=== PATIENT | male | born 1965 | race Caucasian/White ===

== ENCOUNTER 2016-07-29 09:45 | Emergency (ER) | payer OTHER ==
[~2016-07-29] VITALS: Ht 175.3 cm; Wt 68.0 kg
[~2016-07-29 09:45] MED LIST: FISH1000 PO; MILKPOW PO; TAB-TAB PO; VICO7.5T PO; VITA400C70 PO
[2016-07-29 09:49] VITALS: BP 139/78; PULSE 83; RESP 20; TEMP 98.2; O2SAT 94
[2016-07-29] MEDS ORDERED: KETOROLAC TROMETHAMINE 60 MG/2 ML (IM) VIAL IM ONE ×2 (10:30→16:15)
--- NOTE | 2016-07-29 10:30 | PD ---
HPI Chief Complaint: Musculoskeletal Complaint Time Seen by Provider: 09:58 Travel History International Travel<30 days: No Contact w/Intl Traveler<30days: No Traveled to known affect area: No History of Present Illness HPI 50yo M presents to the ED from the [facility] for multiple complaints. Pt states he has numbness in the right side of his body for 2 months. He states he is unable to walk and lift his right leg. Also with sharp pain in his left arm. Pt had impingement syndrome and rotator cuff repair 04/2008. Pt had xray LS from [place] today that showed persistent, mild degenerative changes. Pt has gone through physical therapy, gabapentin and states nothing works. States he has not had MRI of his spine. States his legs were so weak that he fell from the chair yesterday. Denies any chest pain, sob, n/v, abdominal pain or urinary complaints. Pt is on 50% disability. PFSH Past Medical History Cancer: No Diabetes: No Glaucoma: No Hepatitis: No Hiatal Hernia: No Hypertension: No Thyroid Disease: No Past Surgical History Pacemaker: No Other Surgery: Yes Social History Alcohol Use: Yes (SOCIAL) Tobacco Use: Yes (1 PK DAILY) Allergies-Medications (Allergen,Severity, Reaction): Coded Allergies: No Known Allergies (Verified , 05/05/08) Reported Meds & Prescriptions Reported Meds & Active Scripts Active Elavil (Amitriptyline HCl) 25 Mg Tab 1 Tab PO HS Review of Systems Except as stated in HPI: all other systems reviewed are Neg Physical Exam Narrative GENERAL: 50yo hyperventilating. SKIN: Focused skin assessment warm/dry. HEAD: Atraumatic. Normocephalic. EYES: Pupils equal and round. EOMI. No scleral icterus. No injection or drainage. ENT: No midline ttp cervical spine. NECK: Trachea midline. No JVD. CARDIOVASCULAR: Regular rate and rhythm. No murmur appreciated. RESPIRATORY: No accessory muscle use. Clear to auscultation. Breath sounds equal bilaterally. GASTROINTESTINAL: Abdomen soft, non-tender, nondistended. MUSCULOSKELETAL: No obvious deformities. No clubbing. No cyanosis. No edema. BACK: No mass, step off or erythema in midline thoracic or lumbar spine. NEUROLOGICAL: Awake and alert. Decreased left facility planner compare to right. Decreased sensation right arm and leg. Muscle strength right lower ext 3/5. 5/5 muscle strength in all other extremities. Data Data Last Documented VS Vital Signs Date Time Temp Pulse Resp B/P Pulse Ox O2 Delivery O2 Flow Rate FiO2 07/29/16 15:43 60 18 154/78 98 07/29/16 09:49 98.2 Orders Mri Brain W/O Contrast (07/29/16 ) Mri C Spine W/O Contrast (07/29/16 ) Mri L Spine W/O Contrast (07/29/16 ) Ketorolac Inj (Toradol Inj) (07/29/16 10:30) Mri T Spine W/O Contrast (07/29/16 ) Screening,Pre Mr[facility] (07/29/16 ) Ketorolac Inj (Toradol Inj) (07/29/16 16:15) Complete Blood Count With Diff (07/29/16 16:12) Basic Metabolic Panel (Bmp) (07/29/16 16:12) Prothrombin Time / Inr (Pt) (07/29/16 16:12) Act Partial Throm Time (Ptt) (07/29/16 16:12) Type And Screen (07/29/16 16:12) Admit Order (Ed Use Only) (07/29/16 16:15) MDM Medical Decision Making Medical Screen Exam Complete: Yes Emergency Medical Condition: Yes Interpretation(s) Last Impressions Thoracic Spine MRI 07/29/16 0000 Signed Impressions: Service Date/Time: Friday, July 29, 2016 13:53 - CONCLUSION: Tiny disc protrusions at several levels, none producing any significant anatomic compromise. Helio Benoit MD [facility] X-Ray 07/29/16 0000 Signed Impressions: Service Date/Time: Friday, July 29, 2016 13:35 - CONCLUSION: No MRI incompatible foreign body is identified. Jonathon Ibarra MD Lumbar Spine MRI 07/29/16 0000 Signed Impressions: Service Date/Time: Friday, July 29, 2016 13:53 - CONCLUSION: Broad disc protrusions at the L2-3 and L3-4 levels as above Helio Benoit MD Cervical Spine MRI 07/29/16 0000 Signed Impressions: Service Date/Time: Friday, July 29, 2016 13:53 - CONCLUSION: 1. There is a very large disc protrusion at C6-7 with extruded disc material resulting in severe spinal stenosis and bilateral foraminal stenosis. There are edematous changes within the cord at this level. 2. Large central disc protrusion at C4- 5 resulting in severe spinal stenosis at this level. 3. Mild spinal stenosis at C5-6. 4. The individual levels are dictated in detail above. Vasiliy Gamboa MD Brain MRI 07/29/16 0000 Signed Impressions: Service Date/Time: Friday, July 29, 2016 13:53 - CONCLUSION: Normal examination. Helio Benoit MD Differential Diagnosis spinal stenosis vs. nerve compression vs. CVA Narrative Course 50yo M with multiple neuro symptoms. Brain MRI negative. MRI cspine showed very large disc protrusion at C6-7 with extruded disc material resulting in severe spinal stenosis and bilateral foraminal stenosis. There are edematous changes within the cord at this level. Large central disc protrusion at C4-C% resulting in severe spinal stenosis at this level. Mild spinal stenosis at C5- 6. Pt has been having left arm pain, numbness and weakness for a long time. States it is worst with his head turning to the left. Decreased facility planner on left compare to right. MRI LS spine broad disc protrusions at L2-L3 and L3-L4. MRI TS showed tiny disc protrusions at several levels, none producing any significant anatomic compromise. Pt reevaluated at bedside and states that the toradol helped with the pain a lot but is now returning. It has been 6 hours since the first toradol 30mg IV so another dose of toradol 30mg IV given. Discussed findings with Dr. Valderrama and admitted to his service. Pt was seen and evaluated by Dr. Valderrama in the ED. While still physically in the ED, pt refused to stay. Pt states he needs time to process this. Dr. Valderrama and I both tried to convince pt to stay but pt states he needs to go home to take care of things. Dr. Valderrama requesting CT cspine and ordered c-collar. Pt was placed in a cervical spine collar and CT cspine was completed prior to leaving. AMA: The risks of leaving against medical advice without further evaluation treatment were discussed with the patient. These risks include cardiac dysfunction, cardiac dysrhythmia, possible heart attack, possible stroke or . The patient indicated understanding of these risks and appeared to have the capacity to make this decision. Diagnosis Primary Impression: Contusion of cervical cord Qualified Code: S14.109A - Contusion of cervical cord, initial encounter Referrals: Luis Alberto Valderrama MD 1 day Patient Instructions: General Instructions Departure Forms: Tests/Procedures Additional Instructions: Please follow up with Dr. Valderrama as outpatient or return to the ED if you change your mind. Scripts Amitriptyline HCl (Elavil)25 Mg Tab1 Tab PO HS #30 TAB Ref 1 Prov:Luis Alberto Valderrama MD 07/29/16 Disposition: 07 AGAINST MEDICAL ADVICE Condition: Stable WilsonYamilka oropezabran LOPEZ Jul 29, 2016 10:30
[2016-07-29 11:40] VITALS: BP 139/77; PULSE 67; RESP 18; O2SAT 98
[2016-07-29] MEDS ORDERED: ATRITAB PO (13:36)
--- NOTE | 2016-07-29 13:53 | RADRPT ---
EXAM DATE/TIME: 07/29/2016 13:35 [facility] COMPARISON: No previous studies available for comparison. INDICATIONS : Clear for mri, lost mobility in his legs last night, numbness on his left side MEDICAL HISTORY : None. SURGICAL HISTORY : None. ENCOUNTER: Initial ACUITY: 1 day PAIN SCORE: 0/10 LOCATION: Bilateral orbits FINDINGS: Multiple views of both orbits were performed. There is no evidence of fracture involving the bony st ructures surrounding the orbits. The maxillary sinuses appear to be well aerated. No radiopaque bod ies are seen in the soft tissues. No MRI incompatible foreign body is identified. CONCLUSION: No MRI incompatible foreign body is identified. Jonathon Ibarra MD on July 29, 2016 at 13:52 Board Certified Radiologist. This report was verified electronically.
[2016-07-29 14:12] VITALS: BP 138/78; PULSE 71; RESP 18; O2SAT 97
--- NOTE | 2016-07-29 14:37 | RADRPT ---
EXAM DATE/TIME: 07/29/2016 13:53 [facility] COMPARISON: No previous studies available for comparison. INDICATIONS : Risght sided weakness times 2 months. MEDICAL HISTORY : None available SURGICAL HISTORY : Bilat shoulders/Left knee. ENCOUNTER: Initial ACUITY: 2 months PAIN SCORE: 0/10 LOCATION: neck TECHNIQUE: Multiplanar, multisequence MRI examination of the cervical spine was performed. FINDINGS: Sagittal T1 and T2-weighted images demonstrate degenerated disc with osteophytic ridging and large di sc protrusions at C4/5, C5/6 and C6/7. There is extruded disc material abutting the ventral thecal sa c at the C6/7 level. There is increased T2 signal within the cord at this level. The cerebellar tonsils are in their appropriate location. C2-C3: The thecal sac has a normal configuration. There is no evidence of disc herniation or spinal canal s tenosis. The neural foramina are patent bilaterally. C3-C4: There is minimal disc bulge. This just abuts the ventral aspect of the cord. The foramina are adequat e. C4-C5: There is a large central disc protrusion which effaces the ventral thecal sac. There is flattening of the ventral aspect of the cord. There is fairly severe spinal stenosis at this level. The foramina a re adequate. C5-C6: There is broad-based disc bulge and diffuse osteophytic ridging which effaces the ventral thecal sac. This abuts the ventral aspect of the cord. There is mild flattening of the ventral aspect of the cor d. There is moderate foraminal narrowing bilaterally. C6-C7: There is a very large disc protrusion and osteophytic spur. This effaces the ventral thecal sac. Ther e is flattening of the ventral aspect of the cord. There are edematous changes within the cord. There is disc material evident effacing the lateral recess and foramina bilaterally. Overall, there is a s evere spinal stenosis at this level. C7-T1: There is minimal disc bulge asymmetric towards the left. This effaces the ventral thecal sac. The res idual thecal space and foramina are adequate. CONCLUSION: 1. There is a very large disc protrusion at C6-7 with extruded disc material resulting in severe spin al stenosis and bilateral foraminal stenosis. There are edematous changes within the cord at this lev el. 2. Large central disc protrusion at C4-5 resulting in severe spinal stenosis at this level. 3. Mild spinal stenosis at C5-6. 4. The individual levels are dictated in detail above. Vasiliy Gamboa MD on July 29, 2016 at 14:32 Board Certified Radiologist. This report was verified electronically.
--- NOTE | 2016-07-29 14:54 | RADRPT ---
EXAM DATE/TIME: 07/29/2016 13:53 [facility] COMPARISON: MRI CERVICAL SPINE W/O CONTRAST, July 29, 2016, 13:53. INDICATIONS : Extremity weakness. Right sided weakness times 2 month. MEDICAL HISTORY : None. SURGICAL HISTORY : Bilat shoulders/Left knee ENCOUNTER: Initial ACUITY: 2 months PAIN SCORE: 0/10 LOCATION: T-spine TECHNIQUE: Multiplanar multisequence MRI of the thoracic spine was performed. FINDINGS: VERTEBRA: Normal vertebral body height. Homogeneous marrow signal. ALIGNMENT: Normal. CORD: Normal position and configuration. T1-T2: Normal. T2-T3: The thecal sac has a normal diameter. No evidence of disc bulge or protrusion. T3-T4: Minimal broad right paracentral disc protrusion minimally indenting thecal sac and the right lateral recess. No significant canal or foraminal compromise T4-T5: The thecal sac has a normal diameter. No evidence of disc bulge or protrusion. T5-T6: The thecal sac has a normal diameter. No evidence of disc bulge or protrusion. T6-T7: The thecal sac has a normal diameter. No evidence of disc bulge or protrusion. T7-T8: Slight broad left paracentral disc protrusion mildly effacing thecal sac and the left lateral recess. Canal and foramina satisfactory. T8-T9: Slight left paracentral disc protrusion minimally indenting thecal sac in the lateral recess. No sign ificant canal or foraminal compromise T9-T10: The thecal sac has a normal diameter. No evidence of disc bulge or protrusion. T10-T11: The thecal sac has a normal diameter. No evidence of disc bulge or protrusion. T11-T12: The thecal sac has a normal diameter. No evidence of disc bulge or protrusion. T12-L1: The thecal sac has a normal diameter. No evidence of disc bulge or protrusion. CONCLUSION: Tiny disc protrusions at several levels, none producing any significant anatomic compromise. Helio Benoit MD on July 29, 2016 at 14:47 Board Certified Radiologist. This report was verified electronically.
--- NOTE | 2016-07-29 15:12 | RADRPT ---
EXAM DATE/TIME: 07/29/2016 13:53 [facility] COMPARISON: No previous studies available for comparison. INDICATIONS : Difficulty ambulating. Rt side paralysis. MEDICAL HISTORY : None. SURGICAL HISTORY : Bilat shoulders/Left knee ENCOUNTER: Initial ACUITY: 2 day PAIN SCORE: 0/10 LOCATION: head TECHNIQUE: Multiplanar, multisequence MRI of the brain was performed without contrast. FINDINGS: CEREBRUM: The ventricles are normal for age. No evidence of midline shift, mass lesion, hemorrhage or acute in farction. No extraaxial fluid collections are seen. The pituitary gland and suprasellar cistern are normal in configuration. WHITE MATTER: No significant signal abnormalities are seen in the white matter. POSTERIOR FOSSA: The cerebellum and brainstem are intact. The 4th ventricle is midline. The cerebellopontine angle is unremarkable. The cerebellar tonsils are normal in position. DIFFUSION IMAGING: No focal areas of restricted diffusion are seen. No evidence of acute infarction. EXTRACRANIAL: The visualized portions of the orbits and paranasal sinuses are unremarkable. CONCLUSION: Normal examination. Helio Benoit MD on July 29, 2016 at 15:07 Board Certified Radiologist. This report was verified electronically.
--- NOTE | 2016-07-29 15:24 | RADRPT ---
EXAM DATE/TIME: 07/29/2016 13:53 [facility] COMPARISON: No previous studies available for comparison. INDICATIONS : Right sided paralysis. MEDICAL HISTORY : None. SURGICAL HISTORY : Bilat shoulders. ENCOUNTER: Initial ACUITY: 2 months PAIN SCORE: 0/10 LOCATION: back TECHNIQUE: Multiplanar multisequence MRI of the lumbar spine was performed without contrast. FINDINGS: The most caudal appearing lumbar vertebra is numbered as L5. VERTEBRAE: Homogeneous signal. Normal alignment. CONUS: Normal level and configuration. T12-L1: The thecal sac has a normal diameter. No evidence of disc bulge or protrusion. The neural foramina are patent bilaterally. L1-L2: The thecal sac has a normal diameter. No evidence of disc bulge or protrusion. The neural foramina are patent bilaterally. L2-L3: Annular disc bulge with broad undulating superimposed dorsal disc protrusion mildly indenting the the luis a sac. Foramina appear adequate. L3-L4: Annular disc bulge with moderate superimposed undulating dorsal disc protrusion, minimally eccentric to the left with mild flattening of the thecal sac. Foramina appear adequate. L4-L5: Slight disc dehydration with minimal annular bulge. No significant protrusion, canal or foraminal silvio nosis. L5-S1: The thecal sac has a normal diameter. No evidence of disc bulge or protrusion. The neural foramina are patent bilaterally. CONCLUSION: Broad disc protrusions at the L2-3 and L3-4 levels as above Helio Benoit MD on July 29, 2016 at 15:17 Board Certified Radiologist. This report was verified electronically.
[2016-07-29 15:43] VITALS: BP 154/78; PULSE 60; RESP 18; O2SAT 98
[2016-07-29] MEDS ORDERED: KETOROLAC TROMETHAMINE 30 MG/ML (IVP) VIAL IV PUSH ONE (16:30)
[2016-07-29 16:53] LABS: BASOPHIL # 0.1 TH/MM3 (0-0.2); BASOPHIL % 0.5 % (0.0-2.0); EOSINOPHIL # 0.4 TH/MM3 (0-0.4); EOSINOPHIL % 3.8 % (0.0-4.0); HEMATOCRIT 47.5 % (39.0-51.0); HEMO FLAGS DIFF FINAL; LYMPH % 18.3 % (9.0-44.0); LYMPHOCYTE # 2.1 TH/MM3 (1.0-4.8); MEAN CELL VOLUME 92.6 FL (80.0-100.0); MEAN CORPUSCULAR HEMOGLOBIN 32.1 PG (27.0-34.0); MEAN CORPUSCULAR HGB CONC 34.6 % (32.0-36.0); MONO % 7.4 % (0.0-8.0); PLATELET COUNT 259 TH/MM3 (150-450); RED BLOOD COUNT 5.13 MIL/MM3 (4.50-5.90); RED CELL DISTRIBUTION WIDTH 13.9 % (11.6-17.2); WHITE BLOOD COUNT 11.5 TH/MM3 (4.0-11.0)
[2016-07-29 17:10] LABS: BICARBONATE 28.2 MEQ/L (21.0-32.0); POTASSIUM 3.9 MEQ/L (3.5-5.1)
[2016-07-29 17:13] LABS: APTT (PATIENT) 26.4 SEC (24.3-30.1)
[2016-07-29] MEDS ORDERED: AMIT1TAB79 PO (17:31)
--- NOTE | 2016-07-29 17:57 | PD.CONS ---
History of Present Illness Service Neurosurgery Consult Requested By Emergency room-Dr. Wilson Reason for Consult Cervical myelopathy [facility]: History of Present Illness 50-year-old male presents to the emergency room today after being seen in the [facility] earlier today. The patient gives a history of numbness and spasm in the left arm and hand with intermittent burning sensation particularly when he turns his head to the left side, for approximately 2 years. This pain is particularly severe at night. In the past 2 months he has noted onset of progressive severe numbness and burning sensation in the right lower chest and the right abdomen radiating to the entire right lower extremity. Also in the past couple of months progressive gait difficulty with intermittent spasms in both legs. He also has had spasm in the right hand for approximately a year and significant diminished coordination in both upper extremities for the past year with tasks such as handwriting and using eating utensils. He states that last night he fell and initially could not walk at all. He had to drag himself across the floor. His gait has gradually improved somewhat since that time, back to but has essentially been his baseline for the past few weeks. He denies any bowel or bladder dysfunction. He states that he was put on gabapentin for the upper extremity pain and paresthesias approximately year and a half ago, but was unable to take the medication for more than a few days because of its side effects in regards to mental status and difficulty with his thinking and concentration. He also has trouble with most narcotics including codeine. He has been taking Aleve daily for the past few months. He was given a prescription for prednisone at the [place] recently but apparently has not taken the medication. Review of Systems Constitutional: COMPLAINS OF: Weight loss, DENIES: Fever, Chills Endocrine: DENIES: Heat/cold intolerance Eyes: COMPLAINS OF: Blurred vision, DENIES: Diplopia Ears, nose, mouth, throat: DENIES: Tinnitus, Hearing loss Respiratory: COMPLAINS OF: Cough, DENIES: Wheezing, Shortness of breath Cardiovascular: DENIES: Chest pain, Palpitations Gastrointestinal: COMPLAINS OF: Abdominal pain, DENIES: Diarrhea, Nausea, Vomiting Musculoskeletal: COMPLAINS OF: Joint pain, Muscle aches, Stiffness, Back pain, Neck pain Hematologic/lymphatic: DENIES: Bruising Neurologic: COMPLAINS OF: Abnormal gait, Headache, Localized weakness, Paresthesias, Tremor, Poor Balance Psychiatric: COMPLAINS OF: Anxiety Past Family Social History Allergies: Coded Allergies: No Known Allergies (Verified , 05/05/08) Past Medical History Denies significant cardiac, pulmonary, gastrointestinal disease, diabetes, hypertension, hypercholesterolemia. Positive arthritis Past Surgical History Left shoulder surgery 2008, right shoulder surgery 2004. Left knee surgery Reported Medications Prescription medications as noted above. Family History Positive COPD in his mother. Otherwise negative for cancer, diabetes, cardiac disease, neurologic disorders Social History Smokes 1-1/2 pack cigarettes a day for many years Occasional alcohol, primarily at night to help him sleep Physical Exam Vital Signs Vital Signs Date Time Temp Pulse Resp B/P Pulse Ox O2 Delivery O2 Flow Rate FiO2 07/29/16 15:43 60 18 154/78 98 07/29/16 14:12 71 18 138/78 97 07/29/16 11:40 67 18 139/77 98 07/29/16 09:54 84 07/29/16 09:49 98.2 83 20 139/78 94 Physical Exam GENERAL: This is a well-nourished, well-developed patient, appears uncomfortable and somewhat anxious in the emergency room SKIN: No rashes, ecchymoses or lesions. HEAD: Normocephalic. No lacerations or contusions EYES: Sclerae are clear and nonicteric. No periorbital edema or ecchymosis ENT: Oropharynx clear. No facial fracture or deformity NECK: Moderate diffuse tenderness in the cervical paraspinous musculature CARDIOVASCULAR: Regular rate and rhythm without murmurs, gallops, or rubs. RESPIRATORY: Clear to auscultation. Breath sounds equal bilaterally. No wheezes , rales, or rhonchi. GASTROINTESTINAL: Abdomen soft, non-tender, nondistended. No guarding. Normal bowel sounds MUSCULOSKELETAL: Extremities without cyanosis, or edema. Posterior tibial pulse 2+ bilateral. . No calf tenderness. Positive discomfort left knee with range of motion. NEUROLOGICAL: Awake and alert. Oriented conversant and appropriate Speech is clear Answers questions appropriately and follows simple commands well Recent and remote memory appear reasonably intact Appears to have reasonable judgment and insight Appears moderately anxious during the examination. Extraocular movements intact Poor near vision Facial motor movements symmetric Sensation moderately diminished left greater than right hand greater than forearm to light touch was complaining of paresthesias and left greater than right hand dysesthesia. Moderate paresthesia and dysesthesia to light touch over the right lower chest, right abdomen, entire right lower extremity. Strength is diminished to 4/5 bilateral hand intrinsics, abductor digiti quinti minimi, abductor pollicis longus and brevis. 5/5 bilateral deltoids and biceps and triceps. Mild weakness bilateral iliopsoas. Otherwise normal strength throughout the lower extremities Alvarez's response mild positive on the right, absent left Few beats left and right ankle clonus Plantar response moderate right, markedly left with positive significant bilateral quadriceps contraction with testing Fine motor movements moderately impaired in both hands. Laboratory Laboratory Tests Test 07/29/16 16:30 White Blood Count 11.5 Red Blood Count 5.13 Hemoglobin 16.4 Hematocrit 47.5 Mean Corpuscular Volume 92.6 Mean Corpuscular Hemoglobin 32.1 Mean Corpuscular Hemoglobin 34.6 Concent Red Cell Distribution Width 13.9 Platelet Count 259 Mean Platelet Volume 8.4 Neutrophils (%) (Auto) 70.0 Lymphocytes (%) (Auto) 18.3 Monocytes (%) (Auto) 7.4 Eosinophils (%) (Auto) 3.8 Basophils (%) (Auto) 0.5 Neutrophils # (Auto) 8.0 Lymphocytes # (Auto) 2.1 Monocytes # (Auto) 0.8 Eosinophils # (Auto) 0.4 Basophils # (Auto) 0.1 CBC Comment DIFF FINAL Differential Comment Prothrombin Time 11.0 Prothromb Time International 1.0 Ratio Activated Partial 26.4 Thromboplast Time Sodium Level 141 Potassium Level 3.9 Chloride Level 104 Carbon Dioxide Level 28.2 Anion Gap 9 Blood Urea Nitrogen 12 Creatinine 0.97 Estimat Glomerular Filtration 82 Rate Random Glucose 85 Calcium Level 9.2 Blood Type A POSITIVE Blood Bank Comment Result Diagram: 07/29/16 1630 07/29/16 1630 Imaging 07/29/16 MRI cervical, thoracic, lumbar spine images are reviewed by the undersigned. There is severe canal stenosis at the C6 7 greater than C4 5 level with moderate stenosis C5 6. Positive significant increased signal intensity within the cord at C6 7 with probable extruded disc herniation which appears chronic and may be partially calcified. Thoracic Spine MRI 07/29/16 0000 Signed Impressions: Service Date/Time: Friday, July 29, 2016 13:53 - CONCLUSION: Tiny disc protrusions at several levels, none producing any significant anatomic compromise. Helio Benoit MD Orbit X-Ray 07/29/16 Signed Impressions: Service Date/Time: Friday, July 29, 2016 13:35 - CONCLUSION: No MRI incompatible foreign body is identified. Jonathon Ibarra MD Lumbar Spine MRI 07/29/16 Signed Impressions: Service Date/Time: Friday, July 29, 2016 13:53 - CONCLUSION: Broad disc protrusions at the L2-3 and L3-4 levels as above Helio Benoit MD Cervical Spine MRI 07/29/16 0000 Signed Impressions: Service Date/Time: Friday, July 29, 2016 13:53 - CONCLUSION: 1. There is a very large disc protrusion at C6-7 with extruded disc material resulting in severe spinal stenosis and bilateral foraminal stenosis. There are edematous changes within the cord at this level. 2. Large central disc protrusion at C4- 5 resulting in severe spinal stenosis at this level. 3. Mild spinal stenosis at C5-6. 4. The individual levels are dictated in detail above. Vasiliy Gamboa MD Brain MRI 07/29/16 Signed Impressions: Service Date/Time: Friday, July 29, 2016 13:53 - CONCLUSION: Normal examination. Helio Benoit MD Assessment and Plan Assessment and Plan Impression: 1. Cervical spondylosis and degenerative disc disease 2. Severe cervical stenosis 3. 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 Cervical myelopathy 5. Possible cervical cord contusion 6. Nicotine abuse 7. Probable anxiety disorder Plan: The MRI images were reviewed at length with the patient and his family in the emergency room. Treatment options including observation versus surgical intervention have been fully discussed. Advised him that due to the possibility of significant scar tissue formation within the spinal cord, there is no guarantee of any improvement with surgical intervention. However it is very likely that he will continue to become worse without surgical decompression. Due to the severity of his presentation and recent fall, it is recommended that he be admitted at this time for cervical spine surgery for cord decompression. The surgical procedures been explained. Risk and possible complications have been discussed including the risk of anesthesia, organ failure, stroke, , bleeding, infection, nerve damage, pain, weakness, numbness, paralysis, loss of bowel, bladder or sexual function, spinal fluid leak, failure of instrumentation or fusion. Consents have been reviewed with the patient, signed and witnessed in the office today. All questions have been answered. He appears understand all of the above. I have cautioned him that any further falls could cause severe spinal cord injury and possible paralysis. The patient is very adamant that he be discharged home from the emergency room. He states that he is unable to proceed with surgery at this time, saying that he needs some time to think this over and "I can't wrap my head around this". Signs and symptoms to watch for have been fully discussed. He is in agreement with wearing a cervical collar which will be provided to him. I recommended that he obtain a CT scan of the cervical spine to better determine the degree of calcification of the disc displacements and bony anatomy prior to discharge in preparation for anticipated surgery. He states that he cannot get any sleep at night. He cannot take gabapentin. He cannot take narcotic pain medication. I gave him a prescription for amitriptyline 25 mg daily at bedtime on a trial basis to see if he can tolerate this medication. Potential side effects of been discussed. We will continue to follow him on an outpatient basis and try to arrange for surgical decompression of the spinal cord as soon as he is in agreement with this. Luis Alberto Valderrama MD Jul 29, 2016 17:57
--- NOTE | 2016-07-29 18:36 | RADRPT ---
EXAM DATE/TIME: 07/29/2016 17:59 [facility] COMPARISON: MRI CERVICAL SPINE W/O CONTRAST, July 29, 2016, 13:53. INDICATIONS : Right sided numbness for two months. RADIATION DOSE: 30.82 CTDIvol (mGy) MEDICAL HISTORY : None SURGICAL HISTORY : Right rotator cuff repair. ENCOUNTER: Initial ACUITY: 2 months PAIN SCALE: 8/10 LOCATION: Right neck TECHNIQUE: Volumetric scanning of the cervical spine was performed. Multiplanar reconstructions in the sagittal, coronal and oblique axial planes were performed. Using automated exposure control and adjustment o f the mA and/or kV according to patient size, radiation dose was kept as low as reasonably achievable to obtain optimal diagnostic quality images. FINDINGS: Cervical MRI performed earlier the same date had demonstrated large disc protrusion at C6-7 and C4-5. On the CT scan, there is mild reversal of the cervical lordosis from C2-C4. Vertebral body height is maintained. No evidence of spondylolisthesis. Partially bridging anterior ossification is presen t at C4-5, C5-6, and C6-7. Scattered posterior ossification is seen at C4-5 and at C6. The posterio r elements are in normal alignment without evidence of locked or perched facets. The spinous process es are intact. C2-C3: The bony spinal canal is normal in size. No evidence of disc bulge or herniation. The neural forami na are bilaterally patent. C3-C4: The bony spinal canal is normal in size. No evidence of disc bulge or herniation. The neural forami na are bilaterally patent. C4-C5: There is a prominent central epidural impression which measures 6 mm in AP dimension and is centered at the posterior central disc space. There are calcifications seen at the periphery of this presumed disc protrusion. There is uncovertebral joint hypertrophy causing mild minimal foraminal stenosis b ilaterally. C5-C6: Central bulging of the disc does cause indentation on the ventral thecal sac. There is scattered are as of calcification characteristic of associated osteophytes. There is mild bilateral bony neural fo raminal stenosis. C6-C7: Large central disc protrusion with some minimal linear areas of calcification along the inferior righ t margin. The protrusion measures up to 7 mm in AP dimension. The bony neural foramina are patent b ilaterally. C7-T1: The bony spinal canal is normal in size. No evidence of disc bulge or herniation. The neural forami na are bilaterally patent. CONCLUSION: Disc protrusions at C4-5 and C6-7 similar to MR. There are some peripheral calcifications about the protrusions. The level is significant bony neural foraminal stenosis is at C4-5. There is reversal of the cervical or doses at the C4-5 level suggesting that this is chronic, because there is no devia tion or deformity of the large anterior paravertebral ossification. Ollie Jon MD on July 29, 2016 at 18:27 Board Certified Radiologist. This report was verified electronically.
[2016-07-29 19:41] VITALS: BP 160/92; PULSE 78; RESP 16; O2SAT 97
[2016-07-31] MEDS ORDERED: CYCL1TAB29 PO (16:38)
[2016-07-31] MEDS ORDERED: PRED10 PO (16:38)
[2016-07-31] MEDS ORDERED: VARE1PAK3 PO (17:37)
== END 2016-07-29 19:35 | disposition left against medical advice (07) ==
LOC: NEPC 09:45 → NEDA 16:17 → UNDOADMIN 16:17 → UNDODISIN 19:35 → NEDA 19:35
DX: M48.02 Spinal stenosis, cervical region (principal); M79.602 Pain in left arm; R20.0 Anesthesia of skin
CPT/HCPCS: 70551; 72125; 72141; 72146; 72148; 80048; 85025; 85610; 85730; 86850; 86900; 86901; 96372; 99285; J1885; L0150; L0172

== ENCOUNTER 2016-08-02 06:29 | Inpatient (IN) | payer OTHER ==
[~2016-08-02] VITALS: Ht 175.3 cm; Wt 70.3 kg
[~2016-08-02 06:29] MED LIST changes: +AMIT1TAB79 PO; +CYCL1TAB29 PO; -FISH1000 PO; -MILKPOW PO; +PRED10 PO; -TAB-TAB PO; +VARE1PAK3 PO; -VICO7.5T PO; -VITA400C70 PO
[2016-08-02 06:31] VITALS: BP 139/79; PULSE 83; RESP 15; TEMP 98.3; O2SAT 99
[2016-08-02 06:50] VITALS: BP 138/90; PULSE 66; RESP 16; O2SAT 100
--- NOTE | 2016-08-02 07:16 | PD ---
HPI Chief Complaint: Numbness/Tingling Time Seen by Provider: 07:15 Travel History International Travel<30 days: No Contact w/Intl Traveler<30days: No Traveled to known affect area: No History of Present Illness HPI 50-year-old male came to the emergency room with history of paresthesia complain in all 4 extremities. Patient was in the emergency room 4 days ago with similar symptoms and had an MRI done. The MRI showed severe cervical spine stenosis. He was seen by Dr. Valderrama the neurosurgeon who had recommended him to be admitted to get a surgery done. However at that time he had decided to go home and [facility] to [facility]. His sister was there at that time and she is here at this point as well. She said she is his healthcare proxy. She said they have tried through [facility] and it didn't seem like much was getting done. Meanwhile the symptoms were worsening and so they decided to come to the emergency room. Patient seems to be in distress. Vitals are otherwise stable. PFSH Past Medical History Narrative Medical List of his past medical, surgical, social and family history was reviewed from the nursing note. Medical History: Denies Significant Hx Cancer: No Diabetes: No Glaucoma: No Hepatitis: No Hiatal Hernia: No Hypertension: No Thyroid Disease: No Tetanus Vaccination: Unknown Influenza Vaccination: No Past Surgical History Pacemaker: No Other Surgery: Yes Social History Alcohol Use: Yes (SOCIAL) Tobacco Use: Yes (1 PK DAILY) Substance Use: No Allergies-Medications (Allergen,Severity, Reaction): Coded Allergies: No Known Allergies (Verified , 08/02/16) Comments No known drug allergies. Reported Meds & Prescriptions Reported Meds & Active Scripts Active Chantix Starting Month Devyn (Varenicline) 0.5 mg X 11 & 1 mg X 42 Pack 1 Tab PO DIRECTED Elavil (Amitriptyline HCl) 25 Mg Tab 1 Tab PO HS Reported Flexeril (Cyclobenzaprine HCl) 10 Mg Tab 10 Mg PO TID Narrative Medication List of his home medications reviewed from the nursing note. Review of Systems Except as stated in HPI: all other systems reviewed are Neg Physical Exam Narrative GENERAL: Awake, alert, moderate distress, anxious SKIN: Focused skin assessment warm/dry. HEAD: Atraumatic. Normocephalic. EYES: Pupils equal and round. No scleral icterus. No injection or drainage. ENT: No nasal bleeding or discharge. Mucous membranes pink and moist. NECK: Trachea midline. No JVD. CARDIOVASCULAR: Regular rate and rhythm. No murmur appreciated. RESPIRATORY: No accessory muscle use. Clear to auscultation. Breath sounds equal bilaterally. GASTROINTESTINAL: Abdomen soft, non-tender, nondistended. Hepatic and splenic margins not palpable. MUSCULOSKELETAL: No obvious deformities. No clubbing. No cyanosis. No edema. NEUROLOGICAL: Awake and alert. No obvious cranial nerve deficits. Motor grossly within normal limits. Normal speech. PSYCHIATRIC: Appropriate mood and affect; insight and judgment normal. Data Data Last Documented VS Orders Ketorolac Inj (Toradol Inj) (08/02/16 07:30) Complete Blood Count With Diff (08/02/16 07:22) Basic Metabolic Panel (Bmp) (08/02/16 07:22) Dexamethasone Inj (Decadron Inj) (08/02/16 07:30) Admit Order (Ed Use Only) (08/02/16 07:39) Labs Laboratory Tests Test 08/02/16 07:36 White Blood Count 9.5 TH/MM3 Red Blood Count 5.01 MIL/MM3 Hemoglobin 16.6 GM/DL Hematocrit 46.4 % Mean Corpuscular Volume 92.5 FL Mean Corpuscular Hemoglobin 33.1 PG Mean Corpuscular Hemoglobin 35.8 % Concent Red Cell Distribution Width 13.7 % Platelet Count 249 TH/MM3 Mean Platelet Volume 9.3 FL Neutrophils (%) (Auto) 70.7 % Lymphocytes (%) (Auto) 16.7 % Monocytes (%) (Auto) 5.0 % Eosinophils (%) (Auto) 7.0 % Basophils (%) (Auto) 0.6 % Neutrophils # (Auto) 6.7 TH/MM3 Lymphocytes # (Auto) 1.6 TH/MM3 Monocytes # (Auto) 0.5 TH/MM3 Eosinophils # (Auto) 0.7 TH/MM3 Basophils # (Auto) 0.1 TH/MM3 CBC Comment DIFF FINAL Differential Comment Sodium Level 138 MEQ/L Potassium Level 4.8 MEQ/L Chloride Level 105 MEQ/L Carbon Dioxide Level 27.1 MEQ/L Anion Gap 6 MEQ/L Blood Urea Nitrogen 16 MG/DL Creatinine 0.91 MG/DL Estimat Glomerular Filtration 88 ML/MIN Rate Random Glucose 94 MG/DL Calcium Level 9.3 MG/DL [facility] Medical Decision Making Medical Screen Exam Complete: Yes Emergency Medical Condition: Yes Medical Record Reviewed: Yes Differential Diagnosis Cervical spinal stenosis Narrative Course 8:[address] Valderrama who agreed with admission. He wants to take the patient to the OR. He did not want any Toradol and was okay with the Decadron. I have ordered him a liter of IV fluid bolus as well. Patient has been admitted under Dr. Valderrama's service at this point. I've been told that he is booked for our for 10. Patient and the family has been Updated about the progress. Procedures EKG Prior to Arrival: No Physician Communication Physician Communication Dr. Valderrama Diagnosis Primary Impression: Cervical stenosis of spine Additional Impressions: Paresthesia Cervical radiculopathy Admitting Information Admitting Physician Requests: Admit Scripts Hydrocodone-Acetaminophen 5-325 mg Tab1 Tab PO Q4H PRN (PAIN SCALE 3 TO 5) #60 TAB Ref 0 Prov:Luis Alberto Valderrama MD 08/04/16 Alejandra Kirkpatrick MD Aug 02, 2016 07:15
[2016-08-02] MEDS ORDERED: DEXAMETHASONE SOD PHOS 20 MG/5 ML VIAL IV PUSH ONE (07:30)
[2016-08-02] MEDS ORDERED: KETOROLAC TROMETHAMINE 30 MG/ML (IVP) VIAL IV PUSH ONE (07:30)
[2016-08-02] MEDS ORDERED: SODIUM CHLOR 0.9% 1000 ML INJ 1,000 ML IV ONE (07:45)
[2016-08-02 08:06] LABS: AUTOMATED NEUTROPHIL # 6.7 TH/MM3 (1.8-7.7); BASOPHIL # 0.1 TH/MM3 (0-0.2); BASOPHIL % 0.6 % (0.0-2.0); EOSINOPHIL # 0.7 TH/MM3 (0-0.4); HEMATOCRIT 46.4 % (39.0-51.0); HEMO FLAGS DIFF FINAL; LYMPH % 16.7 % (9.0-44.0); LYMPHOCYTE # 1.6 TH/MM3 (1.0-4.8); MEAN CELL VOLUME 92.5 FL (80.0-100.0); MEAN CORPUSCULAR HEMOGLOBIN 33.1 PG (27.0-34.0); MEAN CORPUSCULAR HGB CONC 35.8 % (32.0-36.0); NEUT % 70.7 % (16.0-70.0); PLATELET COUNT 249 TH/MM3 (150-450); RED BLOOD COUNT 5.01 MIL/MM3 (4.50-5.90); RED CELL DISTRIBUTION WIDTH 13.7 % (11.6-17.2); WHITE BLOOD COUNT 9.5 TH/MM3 (4.0-11.0)
[2016-08-02 08:34] LABS: BICARBONATE 27.1 MEQ/L (21.0-32.0); POTASSIUM 4.8 MEQ/L (3.5-5.1)
[2016-08-02] MEDS ORDERED: GENTAMICIN SULFATE 80 MG/2 ML VIAL ONE (09:16)
[2016-08-02] MEDS ORDERED: THROMBIN (TOPICAL) 5,000 UNIT VIAL ONE (09:16)
[2016-08-02] MEDS ORDERED: LIDOCAINE 1%/EPINEPHrine 1:100,000 SOLN 50 ML VIAL ONE (09:16)
[2016-08-02] MEDS ORDERED: GELFOAM SIZE 100 ONE (09:16)
[2016-08-02] MEDS ORDERED: KETAMINE HCL 500 MG/5 ML VIAL ONE (09:53)
[2016-08-02] MEDS ORDERED: fentaNYL CITRATE 250 MCG/5 ML AMP ONE ×2 (09:53→18:57)
[2016-08-02] MEDS ORDERED: MIDAZOLAM HCL 2 MG/2 ML VIAL ONE (09:53)
[2016-08-02] MEDS ORDERED: ACETAMINOPHEN 1000 MG/100 ML VIAL IV ONE (09:54)
[2016-08-02] MEDS ORDERED: ceFAZolin INJ 1,000 MG VIAL IV ONE ×2 (10:55→14:55)
[2016-08-02] MEDS ORDERED: ONDANSETRON HCL 4 MG/2 ML VIAL IV PUSH ONE (12:00)
[2016-08-02] MEDS ORDERED: PROPOFOL 200 MG/20 ML AMP IV ONE (12:00)
[2016-08-02] MEDS ORDERED: NORMOSOL R INJ 2,000 ML IV ONE (12:00)
[2016-08-02] MEDS ORDERED: LACTATED RINGER'S 1000 ML INJ 2,000 ML IV ONE (12:00)
[2016-08-02] MEDS ORDERED: HYDROmorphone HCL PF 2 MG/ML VIAL ONE (14:55)
--- NOTE | 2016-08-02 18:49 | RADRPT ---
EXAM DATE/TIME: 08/02/2016 18:17 [facility] COMPARISON: No previous studies available for comparison. INDICATIONS : C4-C5 discectomy and fusion. C6 corpectomy. MEDICAL HISTORY : None. SURGICAL HISTORY : None. ENCOUNTER: Initial ACUITY: 1 day PAIN SCORE: Non-responsive. LOCATION: Bilateral neck. FINDINGS: Two projection examination was performed. Status post cervical fusion from C4-C7. Status post corpect [place] at C6. There is good alignment of the cervical spine and fusion. The hardware is grossly intact.C ONCLUSION: Good position and alignment on this post operative study. Saw Fishman MD on August 02, 2016 at 18:47 Board Certified Radiologist. This report was verified electronically.
--- NOTE | 2016-08-02 18:57 | HHI.HP ---
HPI Service Neurosurgery Primary Care Physician [facility] Past Family Social History Allergies: Coded Allergies: No Known Allergies (Verified , 08/02/16) Physical Exam Vital Signs Vital Signs Date Time Temp Pulse Resp B/P Pulse Ox O2 Delivery O2 Flow Rate FiO2 08/02/16 06:50 66 16 138/90 100 Room Air 08/02/16 06:31 98.3 83 15 139/79 99 Room Air Physical Exam Gen.: Normal well-developed gentleman in no apparent distress. HEENT: No facial fracture, deformity, edema or ecchymosis Respirations clear to auscultation Cardiac regular without murmur No carotid bruit Extremities: Positive right knee edema and tenderness with range of motion. No significant extremity edema. Posterior tibial pulse 2+ bilateral Skin: No skin lesions or rash Neurologic: Mild lethargy. Answers simple questions appropriately Follows commands well Recent and remote memory are intact Reasonable judgment and insight Appears somewhat depressed Speech is clear Extraocular movements intact Facial motor movements symmetric Sensation intact light touch upper extremities Sensation moderately diminished light touch from the right lower anterolateral chest wall to the right abdomen and entire right lower extremity. Sensation mild to moderately decreased light touch left hand. Strength diminished 4 over 5 in hand intrinsic musculature, iliopsoas Ulysses's response positive bilateral No ankle clonus Plantar response positive right greater than left Hyperreflexia throughout the upper extremities as well as brachial radialis and triceps response Moderate decreased fine motor movements in the upper extremities Laboratory Laboratory Tests Test 08/02/16 07:36 White Blood Count 9.5 Red Blood Count 5.01 Hemoglobin 16.6 Hematocrit 46.4 Mean Corpuscular Volume 92.5 Mean Corpuscular Hemoglobin 33.1 Mean Corpuscular Hemoglobin 35.8 Concent Red Cell Distribution Width 13.7 Platelet Count 249 Mean Platelet Volume 9.3 Neutrophils (%) (Auto) 70.7 Lymphocytes (%) (Auto) 16.7 Monocytes (%) (Auto) 5.0 Eosinophils (%) (Auto) 7.0 Basophils (%) (Auto) 0.6 Neutrophils # (Auto) 6.7 Lymphocytes # (Auto) 1.6 Monocytes # (Auto) 0.5 Eosinophils # (Auto) 0.7 Basophils # (Auto) 0.1 CBC Comment DIFF FINAL Differential Comment Sodium Level 138 Potassium Level 4.8 Chloride Level 105 Carbon Dioxide Level 27.1 Anion Gap 6 Blood Urea Nitrogen 16 Creatinine 0.91 Estimat Glomerular Filtration 88 Rate Random Glucose 94 Calcium Level 9.3 Result Diagram: 08/02/16 0736 08/02/16 0736 Luis Alberto Valderrama MD Aug 02, 2016 18:57
[2016-08-02] MEDS ORDERED: MORPHINE SULFATE 4 MG/ML INJ IV PRN (19:15)
[2016-08-02] MEDS ORDERED: HYDROmorphone HCL PF 1 MG/ML VIAL IV PRN ×2 (19:15)
[2016-08-02] MEDS ORDERED: ONDANSETRON HCL 4 MG/2 ML VIAL IV PRN (19:15)
[2016-08-02] MEDS ORDERED: VARENICLINE PO SCH (19:15)
[2016-08-02] MEDS ORDERED: oxyCODONE/ACETAMINOPHEN 10 MG/325 MG TAB PO PRN (19:15)
[2016-08-02] MEDS ORDERED: SODIUM CHLORIDE 0.9% FLUSH 5 ML FLUSH IVF PRN (19:15)
[2016-08-02] MEDS ORDERED: NALOXONE HCL 0.4 MG/ML AMP IV PRN (19:15)
[2016-08-02] MEDS: SODIUM CHLORIDE 0.9% FLUSH 5 ML FLUSH IVF SCH (21:00)
[2016-08-02] MEDS: DOCUSATE SODIUM 100 MG CAP PO SCH (21:00)
[2016-08-02] MEDS: AMITRIPTYLINE HCL 25 MG TAB PO SCH (21:00)
[2016-08-02] MEDS: D5-1/2 NS + KCL 20 MEQ INJ 1,000 ML IV SCH ×2 (22:00→23:58)
--- NOTE | 2016-08-02 22:00 | PD.OP ---
Operative Report Date of Surgery: Aug 02, 2016 Preoperative Diagnosis: (1) Cervical disc disease with myelopathy (2) Cervical stenosis of spine Severe cervical stenosis with myelopathy Cervical spondylosis and degenerative disc disease Large chronic-appearing herniated nucleus pulposus Postoperative Diagnosis: (1) Cervical disc disease with myelopathy (2) Cervical stenosis of spine Severe cervical stenosis with myelopathy Cervical spondylosis and degenerative disc disease Large chronic-appearing herniated nucleus pulposus Procedure: 1. C6 corpectomy, bilateral C5 6 and C6 7 foraminotomy, decompression spinal canal 2. C6 vertebral body reconstruction with Harms titanium cage, autograft and allograft bone 3. C4 5 anterior cervical discectomy, bilateral foraminotomy, decompression spinal canal 4. Partial, greater than 50% C5 corpectomy for spinal canal decompression 5. C4 5 anterior interbody fusion with composite allograft bone 6. C4-7 anterior cervical instrumentation Anesthesia: Gen. Surgeon: Luis Alberto Valderrama Security Lead(s): Vasiliy Stewart Operation and Findings: Findings: Severe partially calcified chronic herniated nucleus pulposus with hypertrophied posterior longitudinal ligament at the C6 7 and C5 6 greater than C4 5 levels. Procedure in detail: The patient was brought into the operating room and positioned in supine position on the 3080 table with the head and neck in neutral position. Servin catheter was placed. Lines were established by Anesthesia. Gen. endotracheal anesthesia was induced without difficulty, taking care not to significantly flex or extend the patient's neck during intubation and positioning. Leads for intraoperative neuro monitoring were placed and a baseline study obtained. All extremities were appropriately padded. The neck and upper chest were shaved with clippers and sterilely prepped and draped. Appropriate timeout procedure was performed with all personnel present and in agreement 1% Xylocaine with epinephrine was used for local infiltration over the incision site which was made transversely at the and carried sharply down through the platysma muscle. The exposure was continued medial to the sternocleidomastoid muscle and carotid artery, and lateral to the trachea and esophagus. The prevertebral fascia was elevated away from the anterior longitudinal ligament with a Kitner sponge. The longus coli muscle on each side was elevated with the Banks elevator. The self-retaining retractor was placed with the blades beneath the longus coli muscle on each side. The appropriate levels were confirmed with intraoperative C-arm and preoperative imaging studies. The microscope was brought into place and used for the remainder of the procedure including the closure. The 14 mm distraction pins were used as needed for gentle distraction during the procedure. The procedure was performed sequentially at the C5 6 and C6 7 levels for the discectomy and corpectomy followed by the C4 5 levels. At each level the anterior osteophyte was resected with the Leksell rongeur. The disc and annulus was incised with a 15 blade knife and discectomy performed with pituitary biopsy forceps and straight and angled curettes. The TPS drill with the 5 mm barrel bur was used to decorticate the endplates and removed the majority of the osteophyte along the anterior spinal canal as well as the right and left uncovertebral joint. The thin ligament dissector was used to free up the posterior annulus and ligament from the vertebral body margin. The remainder of the resection of the posterior annulus well as the posterior osteophyte and bilateral uncovertebral joint was performed with the 2 and 3 mm thin footplate Kerrison rongeurs. Significant posterior osteophyte was encountered and extensively removed. The posterior vertebral bodies at the C4 5 level were undercut with the Kerrison rongeur and the TPS drill with the 4 mm libby bur as needed to fully decompress the anterior spinal canal. A greater than 50% resection of the C5 vertebral body was necessary to fully decompress the spinal canal posterior to C5. The chronic appearing disc herniation and calcified posterior longitudinal ligament at the C4 5 level and beneath the C5 vertebral body was carefully lifted away from the dura and resected with the Kerrison rongeurs. The appropriate size V G2 bone graft was then placed at the C4 5 level with a good fit of the graft. The blunt nerve hook was used to probe beneath the bone graft to ensure that there was no impingement on the thecal sac or exiting nerve roots. At the C6 vertebral body level, in order to remove the extensive calcified chronic appearing disc herniation and hypertrophied posterior longitudinal ligament, a C6 corpectomy was necessary. The majority of the C6 vertebral body was removed with a Leksell rongeur, followed by the TPS drill to thin out the posterior cortical margin of the C6 vertebral body. The thin ligament dissector was then used to carefully lift the chronic appearing large herniated nucleus pulposus and calcified ligament away from the dura. The chronic disc and calcified ligament were then removed with a 3 mm Kerrison rongeur. The end plates were contoured and carefully measured in depth as well as the height of the corpectomy defect. The 12 mm titanium cage was cut to the appropriate length and packed with a mixture of C6 cancellus bone and a small amount of demineralized bone matrix and placed with a snug fit at the C6 corpectomy site. The blunt hook was used to probe beneath the cage to make sure that there was no compression on the thecal sac or exiting nerve roots The appropriate size Precision anterior cervical plate was then chosen and the bone screws were placed with the 16 mm fixed screws at the caudal most level and the 16 mm variable screws at the cephalad level of the decompression, with a single variable screw at the C5 level. The screws were firmly secured and the locking cams engaged. The entire construct was checked with intraoperative C-arm and felt to be satisfactory. The 10 Albanian drain was brought out through a small incision in the left lower neck and secured to the skin with nylon suture and attached to sterile suction. The closure was performed with 3-0 Vicryl running for the platysma and interrupted for the subcutaneous closure, with 4-0 Vicryl running for the subcuticular closure. A dressing of sterile Mastisol, Steri-Strips, and Primapore dressing was placed. The patient was placed into a cervical collar, and taken to recovery room in stable condition. All counts were correct at the end of the case. Estimated blood loss was 250 cc No specimen was sent to pathology. Intraoperative neuro monitoring remained stable during the procedure. Luis Alberto Valderrama MD Aug 02, 2016 22:00
[2016-08-02] MEDS ORDERED: DO NOT ADM ANY ANTICOAGULANT DRUGS PRN (22:15)
[2016-08-03] VITALS (13 sets, daily range): BP systolic 102–138; BP diastolic 45–74; PULSE 68–84; RESP 8–16; TEMP 97.5–98.3; O2SAT 95–98
[2016-08-03 05:14] LABS: AUTOMATED NEUTROPHIL # 15.6 TH/MM3 (1.8-7.7); BASOPHIL % 0.2 % (0.0-2.0); EOSINOPHIL % 0.1 % (0.0-4.0); HEMO FLAGS DIFF FINAL; LYMPH % 9.7 % (9.0-44.0); LYMPHOCYTE # 1.8 TH/MM3 (1.0-4.8); MEAN CELL VOLUME 93.9 FL (80.0-100.0); MEAN CORPUSCULAR HEMOGLOBIN 31.6 PG (27.0-34.0); MEAN CORPUSCULAR HGB CONC 33.6 % (32.0-36.0); MONO % 7.9 % (0.0-8.0); NEUT % 82.1 % (16.0-70.0); PLATELET COUNT 193 TH/MM3 (150-450); RED BLOOD COUNT 3.73 MIL/MM3 (4.50-5.90); RED CELL DISTRIBUTION WIDTH 13.5 % (11.6-17.2)
[2016-08-03 05:17] LABS: APTT (PATIENT) 25.4 SEC (24.3-30.1); PROTHROMBIN TIME - PATIENT 11.4 SEC (9.8-11.6)
[2016-08-03 05:22] LABS: BICARBONATE 26.5 MEQ/L (21.0-32.0); POTASSIUM 4.1 MEQ/L (3.5-5.1)
[2016-08-03] MEDS: CYCLOBENZAPRINE HCL 10 MG TAB PO SCH ×3 (08:29→17:17)
[2016-08-03] MEDS: SODIUM CHLORIDE 0.9% FLUSH 5 ML FLUSH IVF SCH ×2 (08:29→20:55)
[2016-08-03] MEDS: DOCUSATE SODIUM 100 MG CAP PO SCH ×2 (08:29→20:55)
[2016-08-03] MEDS: predniSONE 10 MG TAB PO SCH (08:29)
[2016-08-03] MEDS: PANTOPRAZOLE SOD 40 MG DELAYED RELEASE TAB PO SCH (08:29)
[2016-08-03] MEDS: ACETAMINOPHEN/HYDROcodone 325 MG/5 MG TAB PO PRN ×2 (08:30→22:08)
[2016-08-03] MEDS: D5-1/2 NS + KCL 20 MEQ INJ 1,000 ML IV SCH (15:04)
--- NOTE | 2016-08-03 17:55 | HHI.NSPN ---
History Chief Complaint: moderate neck pain Interval History 50-year-old male status post C5 partial and C6 total corpectomy with C4 5 interbody fusion, C6 reconstruction titanium cage, autograft and allograft, anterior instrumentation on 08/02/2016 for severe cervical myelopathy 08/03/2016: Patient tolerating liquids. Ambulating short distances with assistance. Moderate drain output. Sensory function moderately improved in the left upper and right lower extremity compared to preoperative. Stable motor function. System Review Comments Patient indicates left hand sensation and right chest, abdomen and lower extremity numbness moderately improved compared to preoperative. No new areas of weakness. Mild hoarseness of voice and difficulty swallowing. Tolerating liquids Exam Results Vital Signs Date Time Temp Pulse Resp B/P Pulse Ox O2 Delivery O2 Flow Rate FiO2 08/03/16 10:00 78 08/03/16 08:00 97.7 16 136/70 97 08/03/16 07:28 21 08/03/16 07:00 Room Air 08/02/16 23:15 2 Intake and Output 08/02/16 08/02/16 08/03/16 08:00 16:00 00:00 Intake Total 4300 ml Output Total 950 ml Balance 3350 ml Physical Examination Respirations clear Heart rate regular No extremity edema Moderate neck drain output Neck dressing dry and intact Cervical collar in place Awake and alert Speech clear and appropriate Sensation mildly diminished light touch left hand and right lower extremity- improved compared to preoperative Moderate positive Ulysses's response No ankle clonus Lab, Micro, Other Results Laboratory Tests Test 08/03/16 08/03/16 04:30 07:07 White Blood Count 19.0 TH/MM3 Red Blood Count 3.73 MIL/MM3 Hemoglobin 11.8 GM/DL Hematocrit 35.0 % Mean Corpuscular Volume 93.9 FL Mean Corpuscular Hemoglobin 31.6 PG Mean Corpuscular Hemoglobin 33.6 % Concent Red Cell Distribution Width 13.5 % Platelet Count 193 TH/MM3 Mean Platelet Volume 8.9 FL Neutrophils (%) (Auto) 82.1 % Lymphocytes (%) (Auto) 9.7 % Monocytes (%) (Auto) 7.9 % Eosinophils (%) (Auto) 0.1 % Basophils (%) (Auto) 0.2 % Neutrophils # (Auto) 15.6 TH/MM3 Lymphocytes # (Auto) 1.8 TH/MM3 Monocytes # (Auto) 1.5 TH/MM3 Eosinophils # (Auto) 0.0 TH/MM3 Basophils # (Auto) 0.0 TH/MM3 CBC Comment DIFF FINAL Differential Comment Prothrombin Time 11.4 SEC Prothromb Time International 1.0 RATIO Ratio Activated Partial 25.4 SEC Thromboplast Time Sodium Level 141 MEQ/L Potassium Level 4.1 MEQ/L Chloride Level 108 MEQ/L Carbon Dioxide Level 26.5 MEQ/L Anion Gap 7 MEQ/L Blood Urea Nitrogen 12 MG/DL Creatinine 0.81 MG/DL Estimat Glomerular Filtration 101 ML/MIN Rate Random Glucose 117 MG/DL Calcium Level 7.9 MG/DL Nasal Screen MRSA (PCR) NEGATIVE Medical Decision Making Impression and Plan Impression: 1. Doing well following C5 partial, C6 total corpectomy and reconstruction for severe cervical myelopathy Plan: Discussed with patient Discussed with nursing staff Transferred to regular floor Continue neck drain Continue cervical collar Continue physical therapy Discontinue IV fluids Discontinue Servin catheter Luis Alberto Valderrama MD Aug 03, 2016 17:55
[2016-08-03] MEDS: AMITRIPTYLINE HCL 25 MG TAB PO SCH (22:07)
[2016-08-04] VITALS: BP 120/68; PULSE 71; RESP 13; TEMP 98.5; O2SAT 96
[2016-08-04 04:00] VITALS: BP 126/80; PULSE 70; RESP 10; TEMP 98.6; O2SAT 95
[2016-08-04 08:00] VITALS: BP 153/94; PULSE 67; PULSE 68; RESP 18; TEMP 98.6; O2SAT 97
[2016-08-04] MEDS: DOCUSATE SODIUM 100 MG CAP PO SCH (08:18)
[2016-08-04] MEDS: predniSONE 10 MG TAB PO SCH (08:18)
[2016-08-04] MEDS: SODIUM CHLORIDE 0.9% FLUSH 5 ML FLUSH IVF SCH (08:19)
[2016-08-04] MEDS: CYCLOBENZAPRINE HCL 10 MG TAB PO SCH ×2 (08:19→13:19)
[2016-08-04] MEDS: PANTOPRAZOLE SOD 40 MG DELAYED RELEASE TAB PO SCH (08:19)
[2016-08-04] MEDS ORDERED: HYDR-3516 PO (10:16)
--- NOTE | 2016-08-04 10:17 | HHI.DCPOC ---
Discharge Care Plan Diagnosis: (1) Cervical stenosis of spine (2) Cervical disc disease with myelopathy Your Health Problems Are: Difficulty with ADL Incision/Drains Loss of Movements Chronic Pain Goals to Promote Your Health * To prevent worsening of your condition and complications * To maintain your health at the optimal level Directions to Meet Your Goals Take your medications as prescribed Follow your dietary instruction Follow activity as directed Keep your appointments as scheduled Take your immunizations and boosters as scheduled If your symptoms worsen call your PCP, if no PCP go to Urgent Care Center or Emergency Room Smoking is Dangerous to Your Health. Avoid second hand smoke Call the 24-hour hour crisis hotline for domestic abuse at Luis Alberto Valderrama MD Aug 04, 2016 10:17
--- NOTE | 2016-08-04 10:20 | HHI.DS ---
Discharge Summary Admission Date Aug 02, 2016 at 07:41 Discharge Date: Aug 04, 2016 Admitting Diagnosis severe cervical spinal stenosis, paresthesia, radiculopathy (1) Cervical stenosis of spine Diagnosis: Principal ICD Code: M48.02 (2) Cervical disc disease with myelopathy Diagnosis: Secondary ICD Code: M50.00 Procedures Date of Surgery: Aug 02, 2016 Preoperative Diagnosis: (1) Cervical disc disease with myelopathy (2) Cervical stenosis of spine Severe cervical stenosis with myelopathy Cervical spondylosis and degenerative disc disease Large chronic-appearing herniated nucleus pulposus Postoperative Diagnosis: (1) Cervical disc disease with myelopathy (2) Cervical stenosis of spine Severe cervical stenosis with myelopathy Cervical spondylosis and degenerative disc disease Large chronic-appearing herniated nucleus pulposus Procedure: 1. C6 corpectomy, bilateral C5 6 and C6 7 foraminotomy, decompression spinal canal 2. C6 vertebral body reconstruction with Harms titanium cage, autograft and allograft bone 3. C4 5 anterior cervical discectomy, bilateral foraminotomy, decompression spinal canal 4. Partial, greater than 50% C5 corpectomy for spinal canal decompression 5. C4 5 anterior interbody fusion with composite allograft bone 6. C4-7 anterior cervical instrumentation CBC/BMP: 08/03/16 0430 08/03/16 0430 Significant Findings Laboratory Tests Test 08/02/16 08/03/16 07:36 04:30 Neutrophils (%) (Auto) 70.7 % 82.1 % (16.0-70.0) (16.0-70.0) Eosinophils (%) (Auto) 7.0 % (0.0-4.0) Eosinophils # (Auto) 0.7 TH/MM3 (0-0.4) Estimat Glomerular Filtration 88 ML/MIN (>89) Rate White Blood Count 19.0 TH/MM3 (4.0-11.0) Red Blood Count 3.73 MIL/MM3 (4.50-5.90) Hemoglobin 11.8 GM/DL (13.0-17.0) Hematocrit 35.0 % (39.0-51.0) Neutrophils # (Auto) 15.6 TH/MM3 (1.8-7.7) Monocytes # (Auto) 1.5 TH/MM3 (0-0.9) Chloride Level 108 MEQ/L (98-107) Random Glucose 117 MG/DL (74-106) Calcium Level 7.9 MG/DL (8.5-10.1) Imaging Last Impressions Cervical Spine X-Ray 08/02/16 0000 Signed Impressions: Service Date/Time: Tuesday, August 02, 2016 18:17 - CONCLUSION: Good position and alignment on this post operative study. Saw Fishman MD Hospital Course Patient underwent above noted procedure without complication. Myelopathic symptoms and findings improved postoperative Drain discontinued postop day number 2 Followed by physical therapy and speech therapy postoperative At the time of discharge tolerating diet, ambulating independently with walker, neurologic function is stable Pt Condition on Discharge: Good Discharge Disposition: Disch w/ Home Health Serv Discharge Instructions DIET: Follow Instructions for: Soft Diet ACTIVITIES You can perform: Weight Bearing As Meagan Activities to Avoid: Lifting/Bending, Strenuous Activity ADDITIONAL Activity Instructio: Cervical Collar when out of bed Follow up Referrals: Home Health Physical Therapy New Medications: Hydrocodone-Acetaminophen (Hydrocodone-Acetaminophen) 5-325 mg Tab 1 TAB PO Q4H PRN PAIN SCALE 3 TO 5 #60 Ref 0 TAB Continued Medications: Amitriptyline HCl (Elavil) 25 Mg Tab 1 TAB PO HS Pain Management #30 Ref 1 TAB Cyclobenzaprine (Flexeril) 10 Mg Tab 10 MG PO TID Muscle Spasm #90 Ref 0 TAB Varenicline (Chantix Starting Month ) 0.5 mg X 11 & 1 mg X 42 Pack 1 TAB PO DIRECTED Smoking cessation #1 Ref 0 PKT Discontinued Medications: Prednisone (Prednisone) 10 Mg Tab 10 MG PO DAILY Ref 0 TAB Luis Alberto Valderrama MD Aug 04, 2016 10:20
[2016-08-04 12:00] VITALS: BP 158/98; PULSE 72; RESP 18; TEMP 97.3; O2SAT 97
--- NOTE | 2016-08-04 12:47 | HHI.FF ---
Face to Face Verification Diagnosis: (1) Cervical disc disease with myelopathy (2) Cervical stenosis of spine Physical Therapy Order: Evaluate and Treat Home Health Nursing Order: Signs/symptoms of disease process Medication education-adverse effect Nursing assessment with vital signs I have seen patient Helio Meyer on 08/04/16. My clinical findings support the need for the requested home health care services because: Deconditioned w/ increased weakness Limited ability to care for self High risk of falls I certify that my clinical findings support that this patient is homebound because: Post-op weakness Unsteady gait/balance Unsafe to leave home unassisted Unable to use public transportation Teo Chavez [facility] Aug 04, 2016 12:47
== END 2016-08-04 13:56 | disposition home health service (06) | DRG 472 ==
LOC: NEPE 06:29 → NEDA 07:41 → N03A 23:28
PROVIDERS: ADMIT Neurological Surgery; ATTEND Neurological Surgery
PROC: 00NW0ZZ Release Cervical Spinal Cord, Open Approach (ICD-10-PCS; 2016-08-02)
PROC: 0RB30ZZ Excision of Cervical Vertebral Disc, Open Approach (ICD-10-PCS; 2016-08-02)
PROC: 0RG20A0 Fusion of 2 or more Cervical Vertebral Joints with Interbody Fusion Device, Anterior Approach, Anterior Column, Open Approach (ICD-10-PCS; principal; 2016-08-02 10:27)
DX: M50.021 Cervical disc disorder at C4-C5 level with myelopathy (principal); M47.12 Other spondylosis with myelopathy, cervical region; M48.02 Spinal stenosis, cervical region; M50.022 Cervical disc disorder at C5-C6 level with myelopathy; M50.023 Cervical disc disorder at C6-C7 level with myelopathy; R13.10 Dysphagia, unspecified; R49.0 Dysphonia; F17.210 Nicotine dependence, cigarettes, uncomplicated; Z96.652 Presence of left artificial knee joint
CPT/HCPCS: 72040; 76000; 80048; 85025; 85610; 85730; 87641; 94150; 99284; C1713; J0131; J0690; J1100; J1170; J1580; J2250; J2405; J3010; J3480; J7030; J7120; J7512; L0150; L0172

== ENCOUNTER 2018-02-16 20:03 | Inpatient (IN) ==
[2018-02-16] MEDS ORDERED: Morphine Inj 4 MG/ML Vial IV.PUSH ONE (21:29)
--- NOTE | 2018-02-16 21:37 | ED ---
HPI General Stated Complaint: Patient states chest pain/left arm pain Time Seen by Provider: 02/16/18 21:12 Source: patient Mode of arrival: ambulatory Limitations: no limitations History of Present Illness HPI narrative: 52-year-old male with history of left shoulder pain status post rotator cuff repair, neck surgery for paralysis presents to the emergency department complaining of left shoulder, neck, left chest wall pain that started Thursday. He states he has associated shortness of breath. He says his pain is located in the left lateral chest wall that radiates to the mid chest. He states that he has felt increasingly short of breath particularly with activity. He states he has had a difficult time eating and says he has new dentures that he is having a hard time adjusting to. He denies abdominal pain or leg pain. He says he has had some nausea which is intermittent. He denies unusual numbness or tingling of his extremities. He denies history of cardiac or pulmonary issues. He denies subjective fevers or chills, history of IV drug or any illicit drug use. He has not seen his primary care physician over a year and has [facility]. Related Data Home Medications Medication Instructions Recorded Confirmed multivitamin 1 tab PO DAILY 02/16/18 02/16/18 Allergies Allergy/AdvReac Type Severity Reaction Status Date / Time No Known Allergies Allergy Verified 02/16/18 20:23 Review of Systems ROS: all other systems reviewed are negative FOR[facility]LY [facility] Medical History Medical History Patient denies medical problems (Acute) Family History Family History Other COPD (chronic obstructive pulmonary disease) Social History Social History Substance History: No History of Abuse Second Hand Smoke Exposure: Yes Smoking Status: Current every day smoker Tobacco Type: Cigarettes How Often Do You Have a Drink Containing Alcohol: 2 to 4 times a month Recent Travel in [facility] [place] within the Last 8 Weeks: No Recent Out of Country Travel within the Last 8 Weeks: No Immunization History Tetanus Immunization: Unsure Exam Narrative Exam Narrative: GENERAL: Well-developed, well-nourished in no apparent distress SKIN: Focused skin assessment warm/dry. HEAD: Atraumatic. Normocephalic. EYES: Pupils equal and round. No scleral icterus. No injection or drainage. ENT: No nasal bleeding or discharge. Mucous membranes pink and moist. NECK: Trachea midline. No JVD. No lymphadenopathy, no obvious tenderness to palpation. CARDIOVASCULAR: Regular rate and rhythm. No murmur appreciated. RESPIRATORY: No accessory muscle use. Clear to auscultation. Breath sounds equal bilaterally. GASTROINTESTINAL: Abdomen soft, non-tender, nondistended. Hepatic and splenic margins not palpable. MUSCULOSKELETAL: No obvious deformities. No clubbing. No cyanosis. No edema. Left shoulder-tenderness to palpation of the anterior shoulder girdle without masses. Pain elicited with range of motion NEUROLOGICAL: Awake and alert. No obvious cranial nerve deficits. Motor grossly within normal limits. Normal speech. PSYCHIATRIC: Appropriate mood and affect; insight and judgment normal. Course Initial Documented Vital Signs Temperature 101.9 F H 02/16/18 20:23 Pulse Rate 88 02/16/18: Respiratory Rate 48 H 02/16/18:23 Blood Pressure 183/85 H 02/16/18 20:23 Pulse Oximetry 98 02/16/18 20:23 Last Documented Vital Signs Temperature 97.6 F 02/21/18 16:00 Pulse Rate 65 02/21/18 16:00 Respiratory Rate 20 02/21/18 16:00 Blood Pressure 104/71 02/21/18 16:00 Pulse Oximetry 99 02/21/18 16:00 Medical Decision Making DARCY Attestation DARCY supervised visit: Yes Attestation: I, Dr. Polk, have reviewed the advance practice practitioner's documentation and am in agreement, met with the patient face to face, made the diagnosis, and the medical decision making was done by me. The patient was initially evaluated by Ayaka, the DARCY. Please see their complete history and physical. *My assessment and Findings: The patient presents with a history of chills, left -sided chest pain, left shoulder pain, associated with shortness of breath and occasional nausea that began on Thursday. The patient reports that the pain in the shoulder was initially mild and is gradually gotten worse with time. He reports that he awoke with the pain. Reports that he has a history of rotator cuff tear on the left side[facility]. He reports that since [facility]. The patient denies having any numbness or tingling to his extremities, or weakness of his extremities. He denies having any swelling or redness of the left shoulder, however he has noticed since being in the emergency department having swelling and redness with an overlying abrasion to the posterior right elbow. He reports that he has been using his right elbow to try to assist him with getting up because of the left shoulder pain. He denies any history of coronary artery disease, DVT, or PE. The patient reports that he was not aware that he had a fever prior to arrival. The patient arrives with a temperature of 101.9. During the course of the patient's emergency department visit, the patient's history, examination, and differential diagnosis were reviewed with the patient. The patient was placed on a manager cardiac with oximetry and frequent blood pressure monitoring. The patient had IV access obtained and blood work sent for analysis. The patient was initially provided normal saline 1 L IV fluid bolus. The patient's diagnostic studies were reviewed and remarkable for A white count of 15, hemoglobin 15.1, platelets within normal limits at 178, neutrophils 86.4. PT 12.4, INR 1.2, PTT 30.7, chemistry is remarkable for a GFR of 84, glucose 124, calcium 8.2, AST 13, troponin I within normal limits at less than 0.02. Urinalysis showed no acute abnormality. A chest x-ray showed no acute cardiopulmonary process. Shoulder x-ray on the left revealed no acute abnormality. A CTA C-spine CT revealed that the patient is status post corpectomy at C6 with strut seen extending from the inferior aspect of C5 to superior aspect of C7, anterior cervical fusion plate extending from C4 through C7. On uncovertebral hypertrophy and neural foraminal narrowing at C4-C6 5, through C6-C7 levels. Most prominently affected level is C5-C6. CTA to rule out pulmonary embolism showed no pulmonary embolism, 2.9 cm subpleural mass seen at the anterior superior left upper lobe. Neoplasm cannot be excluded. Diffuse emphysematous changes, suspected atelectasis at the posterior lower lung bilaterally. Given the patient's elevated white blood cell count and fever , the patient will be treated for pneumonia. The patient was given Rocephin 1 g IV, Zithromax 500 IV. The patient's case including history, pertinent physical examination findings, and laboratory studies were discussed with Dr. Preston. It was agreed that the patient would be admitted to the hospitalist service. The patient's results were discussed with the patient, including the plan of care. I explained that further testing and/ or monitoring is indicated based on the patient's history, examination, and/ or laboratory findings. Therefore, I recommended admission for additional evaluation. The patient expressed understanding and was agreeable with this plan. The patient was admitted to the hospital in stable condition and sent to a bed under the care of the [facility] service. MDM Narrative Medical decision making narrative: 52-year-old male presents to the emergency department for evaluation of left shoulder, left chest wall pain associated with shortness of breath and occasional nausea. He says that he has a history of a neck surgery that was performed about a year and a half ago. Labs ordered for evaluation. Influenza ordered as he has a fever but denies symptoms of pulmonary, urinary, bowel. Reviewed E force. Patient's last prescription was in July 2016 prescribed by the [facility]. Labs are notable for WBC 15, influenza negative, BUN/CR 7/0.94, troponin 0.02. CXR without acute process. Pending urine. Ordered left shoulder xray for further evaluation. Please see my attending's note for further information and dispo. Medical Screen Exam Complete: Yes Emergency Medical Condition: Yes Differential Diagnosis Differential Diagnosis: Left shoulder injury, sepsis, atypical chest pain, angina, ACS Medical Records Medical records reviewed: Yes I reviewed the patient's medical records. Lab Data Lab results reviewed: Yes I reviewed the patient's lab results. Result diagrams: 02/19/18 06:40 02/18/18 04:55 Lab Results 02/16/18 02/16/18 02/16/18 Range/Units 21:32 21:32 21:32 CBC w Diff WBC 15.0 H (4.0-11.0) th/mm3 RBC 4.59 (4.50-5.90) mil/mm3 Hgb 15.1 (13.0-17.0) gm/dL Hct 43.4 (39.0-51.0) % MCV 94.6 (80.0-100.0) fL MCH 33.0 (27.0-34.0) pg MCHC 34.8 (32.0-36.0) % RDW 13.1 (11.6-17.2) % Plt Count 178 (150-450) th/mm3 MPV 8.2 (7.0-11.0) fL Neut % (Auto) 86.4 H (16.0-70.0) % Lymph % (Auto) 5.9 L (9.0-44.0) % Elliott % (Auto) 7.4 (0.0-8.0) % Eos % (Auto) 0.0 (0.0-4.0) % Baso % (Auto) 0.3 (0.0-2.0) % Neut # (Auto) 12.9 H (1.8-7.7) th/mm3 Lymph # (Auto) 0.9 L (1.0-4.8) th/mm3 Elliott # (Auto) 1.1 H (0.0-0.9) th/mm3 Eos # (Auto) 0.0 (0.0-0.4) th/mm3 Baso # (Auto) 0.0 (0.0-0.2) th/mm3 WBC Differential . Differential Comment Auto diff final ESR (0-20) mm/hr PT (9.8-11.6) sec INR Ratio APTT (24.3-30.1) sec Sodium 137 (136-145) meq/L Potassium 3.8 (3.5-5.1) meq/L Chloride 102 (98-107) meq/L Carbon Dioxide 25.7 (21.0-32.0) meq/L Anion Gap 9 (5-15) meq/L BUN 7 (7-18) mg/dL Creatinine 0.94 (0.60-1.30) mg/dL Estimated GFR 84 L (>89) mL/min Random Glucose 124 H (74-106) mg/dL Lactic Acid 0.9 (0.4-2.0) mmol/L Calcium 8.2 L (8.5-10.1) mg/dL Magnesium 1.9 (1.5-2.5) mg/dL Total Bilirubin 0.4 (0.2-1.0) mg/dL AST 13 L (15-37) U/L ALT 22 (12-78) U/L Alkaline Phosphatase 65 (45-117) U/L Troponin I Less than 0.02 L (0.02-0.05) ng/mL Total Protein 7.3 (6.4-8.2) g/dL Albumin 3.5 (3.4-5.0) g/dL Urine Color (Yellw/Straw) Urine Clarity (Clear) Urine pH (5.0-8.5) Ur Specific Law[place] (1.002-1.035) Urine Protein (Neg-Trace) mg/dL Urine Glucose (UA) (Negative) mg/dL Urine Ketones (Negative) mg/dL Urine Occult Blood (Negative) Urine Nitrate (Negative) Urine Bilirubin (Negative) Urine Urobilinogen (Less than 2) mg/dL Ur Leukocyte Esterase (Negative) Urine RBC (0-3) /hpf Urine WBC (0-5) /hpf Micro UA Comment Ur Microscopic Review Urine Culture Comments 02/16/18 02/16/18 02/16/18 Range/Units 21:32 21:32 23:45 CBC w Diff WBC (4.0-11.0) th/mm3 RBC (4.50-5.90) mil/mm3 Hgb (13.0-17.0) gm/dL Hct (39.0-51.0) % MCV (80.0-100.0) fL MCH (27.0-34.0) pg MCHC (32.0-36.0) % RDW (11.6-17.2) % Plt Count (150-450) th/mm3 MPV (7.0-11.0) fL Neut % (Auto) (16.0-70.0) % Lymph % (Auto) (9.0-44.0) % Elliott % (Auto) (0.0-8.0) % Eos % (Auto) (0.0-4.0) % Baso % (Auto) (0.0-2.0) % Neut # (Auto) (1.8-7.7) th/mm3 Lymph # (Auto) (1.0-4.8) th/mm3 Elliott # (Auto) (0.0-0.9) th/mm3 Eos # (Auto) (0.0-0.4) th/mm3 Baso # (Auto) (0.0-0.2) th/mm3 WBC Differential Differential Comment ESR 12 (0-20) mm/hr PT 12.4 H (9.8-11.6) sec INR 1.2 Ratio APTT 30.7 H (24.3-30.1) sec Sodium (136-145) meq/L Potassium (3.5-5.1) meq/L Chloride (98-107) meq/L Carbon Dioxide (21.0-32.0) meq/L Anion Gap (5-15) meq/L BUN (7-18) mg/dL Creatinine (0.60-1.30) mg/dL Estimated GFR (>89) mL/min Random Glucose (74-106) mg/dL Lactic Acid (0.4-2.0) mmol/L Calcium (8.5-10.1) mg/dL Magnesium (1.5-2.5) mg/dL Total Bilirubin (0.2-1.0) mg/dL AST (15-37) U/L ALT (12-78) U/L Alkaline Phosphatase (45-117) U/L Troponin I (0.02-0.05) ng/mL Total Protein (6.4-8.2) g/dL Albumin (3.4-5.0) g/dL Urine Color Yellow (Yellw/Straw) Urine Clarity Clear (Clear) Urine pH 6.0 (5.0-8.5) Ur Specific [place] 1.005 (1.002-1.035) Urine Protein Negative (Neg-Trace) mg/dL Urine Glucose (UA) Negative (Negative) mg/dL Urine Ketones Negative (Negative) mg/dL Urine Occult Blood Negative (Negative) Urine Nitrate Negative (Negative) Urine Bilirubin Negative (Negative) Urine Urobilinogen 4 or greater (Less than 2) mg/dL Ur Leukocyte Esterase Negative (Negative) Urine RBC 1 (0-3) /hpf Urine WBC 1 (0-5) /hpf Micro UA Comment Culture not ind Ur Microscopic Review Not Reportable Urine Culture Comments Culture not ind 02/18/18 02/18/18 02/19/18 Range/Units 04:55 04:55 06:40 CBC w Diff Auto diff final WBC 16.0 H 12.2 H (4.0-11.0) th/mm3 RBC 4.23 L 4.24 L (4.50-5.90) mil/mm3 Hgb 13.8 14.0 (13.0-17.0) gm/dL Hct 40.7 41.1 (39.0-51.0) % MCV 96.3 96.9 (80.0-100.0) fL MCH 32.7 32.9 (27.0-34.0) pg MCHC 34.0 34.0 (32.0-36.0) % RDW 12.3 13.4 (11.6-17.2) % Plt Count 177 226 (150-450) th/mm3 MPV 8.7 8.9 (7.0-11.0) fL Neut % (Auto) 78.7 H 78.4 H (16.0-70.0) % Lymph % (Auto) 9.0 9.0 (9.0-44.0) % Elliott % (Auto) 10.7 H 10.6 H (0.0-8.0) % Eos % (Auto) 1.2 1.6 (0.0-4.0) % Baso % (Auto) 0.4 0.4 (0.0-2.0) % Neut # (Auto) 12.6 H 9.5 H (1.8-7.7) th/mm3 Lymph # (Auto) 1.4 1.1 (1.0-4.8) th/mm3 Elliott # (Auto) 1.7 H 1.3 H (0.0-0.9) th/mm3 Eos # (Auto) 0.2 0.2 (0.0-0.4) th/mm3 Baso # (Auto) 0.1 0.0 (0.0-0.2) th/mm3 WBC Differential . . Differential Comment . Auto diff final ESR (0-20) mm/hr PT (9.8-11.6) sec INR Ratio APTT (24.3-30.1) sec Sodium 138 (136-145) meq/L Potassium 3.9 (3.5-5.1) meq/L Chloride 101 (98-107) meq/L Carbon Dioxide 29.6 (21.0-32.0) meq/L Anion Gap 7 (5-15) meq/L BUN 11 (7-18) mg/dL Creatinine 0.93 (0.60-1.30) mg/dL Estimated GFR 85 L (>89) mL/min Random Glucose 101 (74-106) mg/dL Lactic Acid (0.4-2.0) mmol/L Calcium 8.3 L (8.5-10.1) mg/dL Magnesium (1.5-2.5) mg/dL Total Bilirubin (0.2-1.0) mg/dL AST (15-37) U/L ALT (12-78) U/L Alkaline Phosphatase (45-117) U/L Troponin I (0.02-0.05) ng/mL Total Protein (6.4-8.2) g/dL Albumin (3.4-5.0) g/dL Urine Color (Yellw/Straw) Urine Clarity (Clear) Urine pH (5.0-8.5) Ur Specific [place] (1.002-1.035) Urine Protein (Neg-Trace) mg/dL Urine Glucose (UA) (Negative) mg/dL Urine Ketones (Negative) mg/dL Urine Occult Blood (Negative) Urine Nitrate (Negative) Urine Bilirubin (Negative) Urine Urobilinogen (Less than 2) mg/dL Ur Leukocyte Esterase (Negative) Urine RBC (0-3) /hpf Urine WBC (0-5) /hpf Micro UA Comment Ur Microscopic Review Urine Culture Comments Imaging Data Radiologist's impression: Chest X-Ray 02/16/18 21:30 CONCLUSION: No acute cardiopulmonary process. Shoulder X-Ray 02/16/18 23:11 CONCLUSION: No acute abnormality is seen. Cervical Spine CT 02/17/18 01:02 CONCLUSION: 1. Status post corpectomy at C6 with strut seen extending from the inferior aspect of C5 to superior aspect of C7. 2. Anterior cervical fusion plate extending from C4 through C7. 3. Uncovertebral hypertrophy and neural foraminal narrowing at the C4-C5 through C6-C7 levels as described above. Most prominently affected level is the C5-C6 level. Chest CTA 02/17/18 01:02 CONCLUSION: 1. No pulmonary embolus. 2. 2.9 cm subpleural mass seen at the anterior superior left upper lobe. Neoplasm cannot be excluded. This area could be further evaluated noninvasively with PET FDG study. 3. Diffuse emphysematous change. 4. Suspected atelectasis at the posterior lung lower lungs bilaterally. Abdomen/Pelvis CT 02/18/18 04:43 CONCLUSION: 1. No CT evidence for abdominal/pelvic mass or metastatic disease. 2. Ancillary findings, as above. Discharge Plan Discharge Disposition Patient Disposition: 30 Still Patient Discharge Condition Condition: Stable Discharge Details Diagnosis: Lung mass Physicians Team ED Provider: Chiquis Polk ED Midlevel Provider: Julissa Angeles Primary Care Provider: [facility] [place] Attending Provider: Mario Kan Other Providers: William Paz ; Manuel Figueroa ; Romaine Aly Status ED Status: Left Department Discharge Information Discharge Date/Time: 02/17/18 09:30
[2018-02-16 21:54] LABS: Baso % (Auto) 0.3 % (0.0-2.0); Hematocrit 43.4 % (39.0-51.0); Hemoglobin 15.1 gm/dL (13.0-17.0); Lymph # (Auto) 0.9 th/mm3 (1.0-4.8); Lymph % (Auto) 5.9 % (9.0-44.0); Mean Corpuscular HGB Conc 34.8 % (32.0-36.0); Mean Corpuscular Volume 94.6 fL (80.0-100.0); Mean Platelet Volume 8.2 fL (7.0-11.0); Mono # (Auto) 1.1 th/mm3 (0.0-0.9); Mono % (Auto) 7.4 % (0.0-8.0); Neut # (Auto) 12.9 th/mm3 (1.8-7.7); Neut % (Auto) 86.4 % (16.0-70.0); Platelet Count 178 th/mm3 (150-450); Red Blood Count 4.59 mil/mm3 (4.50-5.90); Red Cell Distribution Width 13.1 % (11.6-17.2)
--- NOTE | 2018-02-16 21:55 | XR ---
EXAM DATE: 02/16/2018 9:30 PM EDT AGE/SEX: 52 years / Male INDICATIONS: Chest and left shoulder pain. CLINICAL DATA: This is the patient's initial encounter. Patient reports that signs and symptoms have been present for 3 days and indicates a pain score of 9/10. MEDICAL/SURGICAL HISTORY: None. None. COMPARISON: No prior exams available for comparison. FINDINGS: A single AP view of the chest demonstrates the lungs to be symmetrically aerated without evidence of mass, infiltrate or effusion. The cardiomediastinal contours are unremarkable. Osseous structures a re intact. Anterior fixation of the lower cervical spine CONCLUSION: No acute cardiopulmonary process. Electronically signed by: Jonathon Ibarra MD 02/16/2018 9:54 PM EDT
[2018-02-16] MEDS ORDERED: Sod Chloride 0.9% Inj 1,000 ML IV.SIG SCH (22:00)
[2018-02-16 22:04] LABS: Activated Partial Thrombo Time 30.7 sec (24.3-30.1); INR 1.2 Ratio; Prothrombin Time 12.4 sec (9.8-11.6)
[2018-02-16 22:19] LABS: Alanine Aminotransferase 22 U/L (12-78); Albumin 3.5 g/dL (3.4-5.0); Anion Gap 9 meq/L (5-15); Aspartate Aminotransferase 13 U/L (15-37); Blood Urea Nitrogen 7 mg/dL (7-18); Calcium 8.2 mg/dL (8.5-10.1); Carbon Dioxide 25.7 meq/L (21.0-32.0); Chloride 102 meq/L (98-107); Glomerular Filtration Rate 84 mL/min (>89); Glucose,Random 124 mg/dL (74-106); Magnesium 1.9 mg/dL (1.5-2.5); Potassium 3.8 meq/L (3.5-5.1); Sodium 137 meq/L (136-145)
[2018-02-16 22:23] LABS: Alkaline Phosphatase 65 U/L (45-117); Total Protein 7.3 g/dL (6.4-8.2)
--- NOTE | 2018-02-17 00:05 | XR ---
EXAM DATE: 02/16/2018 11:11 PM EDT AGE/SEX: 52 years / Male INDICATIONS: Pain in left shoulder for 3 days. CLINICAL DATA: This is the patient's initial encounter. Patient reports that signs and symptoms have been present for 1 day and indicates a pain score of 4/10. MEDICAL/SURGICAL HISTORY: None. None. COMPARISON: C, CHEST 1V SINGLE AP, 02/16/2018. . FINDINGS: No acute fracture seen. The glenohumeral and clavicular joints appear aligned. There appears to be so me minimal hypertrophic change at the inferior aspect of the glenoid. There is an anterior cervical fusion plate present. CONCLUSION: No acute abnormality is seen. Electronically signed by: Helio Mckeon MD 02/17/2018 12:04 AM EDT
[2018-02-17 00:06] LABS: Bilirubin,Urine Negative (Negative); Clarity,Urine Clear (Clear); Color,Urine Yellow (Yellw/Straw); Glucose,Urine (UA) Negative (Negative); Leukocyte Esterase,Urine Negative (Negative); Nitrite,Urine Negative (Negative); Specific Gravity,Urine 1.005 (1.002-1.035); Urobilinogen,Urine 4 or Greater mg/dL (Less than 2)
[2018-02-17] MEDS ORDERED: Vancomycin Inj 1 GM/200 ML PIGGYBACK IV.SIG ONE (01:19)
[2018-02-17] MEDS ORDERED: Piperacil/Tazo 3.375 GM Premix 50 ML IV.SIG ONE (01:19)
[2018-02-17] MEDS ORDERED: Vancomycin Inj 1,000 MG in Sodium Chlor 0.9% Inj 250 ML IV.SIG ONE (02:00)
--- NOTE | 2018-02-17 03:09 | CT ---
EXAM DATE: 02/17/2018 1:19 AM EDT AGE/SEX: 52 years / Male INDICATIONS: Chest and left arm pain. CLINICAL DATA: This is the patient's initial encounter. Patient reports that signs and symptoms have been present for 1 day and indicates a pain score of 8/10. MEDICAL/SURGICAL HISTORY: None. None. RADIATION DOSE: 9.90 CTDI (mGy) COMPARISON: No prior exams available for comparison. TECHNIQUE: Volumetric scanning was performed using a multi-row detector CT scanner during bolus infu ruthy of 70 ml Omnipaque 350 (iohexol) nonionic water-soluble contrast as a single exam dose. The jose a was post processed with a variety of visualization algorithms including full volume maximum intensi ty projection and sliding thin slab reformation. Using automated exposure control and adjustment of t he mA and/or kV according to patient size, radiation dose was kept as low as reasonably achievable to obtain optimal diagnostic quality images. DICOM format image data is available electronically for r eview and comparison. FINDINGS: Pulmonary Arteries: No filling defects are seen in the pulmonary arteries out to the subsegmental ve ssels. The left and right pulmonary arteries are normal in diameter. Lung: There is diffuse emphysematous change. There is a subpleural mass seen at the anterior superio r left upper lobe measuring 2.9 x 1.7 cm. There is increased density at the posterior lower lungs grzegorz aterally likely related to consolidation or atelectasis. Effusion: There is a minimal left pleural effusion. Mediastinum: No evidence of mediastinal or hilar adenopathy. Other: The axilla is unremarkable. CONCLUSION: 1. No pulmonary embolus. 2. 2.9 cm subpleural mass seen at the anterior superior left upper lobe. Neoplasm cannot be excluded . This area could be further evaluated noninvasively with PET FDG study. 3. Diffuse emphysematous change. 4. Suspected atelectasis at the posterior lung lower lungs bilaterally. Electronically signed by: Helio Mckeon MD 02/17/2018 3:08 AM EDT
--- NOTE | 2018-02-17 03:20 | CT ---
EXAM DATE: 02/17/2018 1:19 AM EDT AGE/SEX: 52 years / Male INDICATIONS: Left shoulder and arm pain. CLINICAL DATA: This is the patient's initial encounter. Patient reports that signs and symptoms have been present for 1 day and indicates a pain score of 8/10. MEDICAL/SURGICAL HISTORY: None. None. RADIATION DOSE: 18.26 CTDI (mGy) COMPARISON: No prior exams available for comparison. TECHNIQUE: Contiguous axial images were obtained using helical multirow detector technique. The vol umetric data was post-processed with multiplanar reconstruction in oblique axial, sagittal, and coron al planes. Using automated exposure control and adjustment of the mA and/or kV according to patient s ize, radiation dose was kept as low as reasonably achievable to obtain optimal diagnostic quality danielle ges. DICOM format image data is available electronically for review and comparison. FINDINGS: Vertebrae: There is an anterior cervical fusion plate extending from C4 through C7. There appears to be a metallic strut extending from the inferior aspect of C5 through to the superior aspect of C7 th rough the C6 vertebral body region. There is stabilization device seen at the C4-C5 disc level. Alignment: Normal. No subluxation. C2-3: The bony spinal canal is normal in size. No evidence of disc bulge or herniation. The neural foramina are bilaterally patent. C3-4: There is minimal bulging and calcification posterior disc margin causing a mild impression on the thecal sac. The neural foramina are patent bilaterally. C4-5: The patient is status post fusion at this level. A significant impression on thecal sac is not seen. There is uncovertebral hypertrophy. There is narrowing of the left neural foramina. Right neur al foramina is patent. C5-6: The structures seen extending from the inferior aspect of C5 through to the superior aspect of C7. No significant impression on thecal sac is seen at the disc level. There is uncovertebral hypert rophy. There is moderate narrowing of the neural foramina being worse on the left. C6-7: Again seen is the metallic strut. A significant impression on thecal sac at this level is not seen. There is uncovertebral hypertrophy. There is mild narrowing of the neural foramina. C7-T1: The bony spinal canal is normal in size. No evidence of disc bulge or herniation. The neura l foramina are bilaterally patent. CONCLUSION: 1. Status post corpectomy at C6 with strut seen extending from the inferior aspect of C5 to superior aspect of C7. 2. Anterior cervical fusion plate extending from C4 through C7. 3. Uncovertebral hypertrophy and neural foraminal narrowing at the C4-C5 through C6-C7 levels as matilda cribed above. Most prominently affected level is the C5-C6 level. Electronically signed by: Helio Mckeon MD 02/17/2018 3:18 AM EDT
[2018-02-17] MEDS ORDERED: Azithromycin Inj 500 MG in Sodium Chlor 0.9% Inj 250 ML IV.SIG ONE (03:22)
[2018-02-17] MEDS ORDERED: Acetaminophen 325 MG Tablet PO PRN (04:27)
[2018-02-17] MEDS ORDERED: Bisacodyl 10 MG Supp RECTAL PRN (04:27)
--- NOTE | 2018-02-17 04:38 | P.HP ---
History of Present Illness Service: [facility] Primary Care Physician: [facility] History of Present Illness: 52-year-old male with a past medical history significant for previous neck surgery and rotator cuff repair presents to the emergency department complaining of left shoulder, left neck and left anterior chest wall pain that began on Thursday afternoon. The patient reports the pain is significantly worse with inspiration. He denies any cough. Endorses associated chills. No shortness of breath. No abdominal pain. No nausea/vomiting/diarrhea. No recent history of weight loss. Inpatient Certification: I certify that the inpatient services were ordered in accordance with Medicare regulations governing the order. This includes certification that hospital inpatient services are reasonable and necessary and in the case of services not specified as inpatient-only under 42 CFR 419.22(n), that they are appropriately provided as inpatient services in accordance to with the 2-midnight benchmark under 43 CFR 412.3(e) Estimated Total Length of Stay (Days): 2 Plans for Post Hospital Care: Not yet determined Review of Systems All other systems reviewed negative except as stated in [facility] - History History Provided By: Patient - Medical History Medical History: Medical History (Last Reviewed 02/17/18 @ 04:31 by Ashley Preston MD) Patient denies medical problems - Surgical History Surgical History: Surgical History (Last Reviewed 02/17/18 @ 04:31 by Ashley Preston MD) History of knee surgery History of neck surgery History of shoulder surgery - Family History Family History: Family History (Last Updated 02/17/18 @ 04:32 by Ashley Preston MD) Other COPD (chronic obstructive pulmonary disease) - Tobacco History Tobacco Use In Past 30 Days: Yes Smoking Status: Current every day smoker Tobacco Type: Cigarettes - Alcohol History How Often Do You Have a Drink Containing Alcohol: Monthly or less - Substance Use History Substance History: No History of Abuse - Travel History Recent Travel in the [place] Within the Last 8 Weeks: No Recent Travel Out of the Country Within the Last 8 Weeks: No - Immunization History Tetanus Immunization: Unsure Medications and Allergies Active Medications: Active Medications Sodium Chloride (Ns Inj) 1,000 mls @ 0 mls/hr IV.SIG BOLUS EDY Last Infusion: 02/16/18 23:32 Dose: Infused Allergies Allergy/AdvReac Type Severity Reaction Status Date / Time No Known Allergies Allergy Verified 02/16/18 20:23 Home Medications Medication Instructions Recorded Confirmed Type multivitamin 1 tab PO DAILY 02/16/18 02/16/18 History Exam Vital signs: Vital Signs 02/16/18 20:23 02/16/18 21:19 02/16/18 21:44 Temperature 101.9 F H 101.6 F H Pulse Rate 88 92 H Respiratory Rate 48 H 19 Blood Pressure 183/85 H 134/68 Pulse Oximetry 98 98 97 02/16/18 23:45 Temperature 99.2 F Pulse Rate 81 Respiratory Rate 17 Blood Pressure 119/71 Pulse Oximetry 99 Intake & Output 02/16/18 02/16/18 02/17/18 06:59 18:59 06:59 Intake Total 1300 / 1300 Balance 1300 / 1300 Weight 68.039 kg Intake: IV 1300 / 1300 Zosyn 3.375 GM Premix 50 ML @ 50 / 50 100 mls/hr IV.SIG ONCE ONE Rx#: [id number] NS Inj 1,000 ML @ Wide Open IV. 1000 / 1000 SIG BOLUS EDY Rx#:[id number] Vancomycin Inj 1,000 MG In NS 250 / 250 Inj 250 ML @ 250 mls/hr IV.SIG ONCE ONE Rx#:[id number] Narrative: Gen.: No acute distress Head: Normocephalic. Atraumatic. EENT: Pupils equal round and reactive to light. Nose without drainage. Airway intact. Throat without injection. Cardiovascular: Regular rate and rhythm. No murmurs, rubs or gallops. Respiratory: Lungs clear to auscultation bilaterally. No wheezes or rhonchi. Abdomen: Soft, nontender, nondistended. No peritoneal signs. Musculoskeletal: No gross deformities. No edema. Skin: No obvious rashes or erythema. Neuro: Sensory and motor grossly intact. Cranial nerves II through XII grossly intact. Results - Labs CBC & Chem 7: 02/16/18 21:32 02/16/18 21:32 Labs: Laboratory Results - last 24 hr 02/16/18 02/16/18 02/16/18 21:32 21:32 21:32 WBC 15.0 H RBC 4.59 Hgb 15.1 Hct 43.4 MCV 94.6 MCH 33.0 MCHC 34.8 RDW 13.1 Plt Count 178 MPV 8.2 Neut % (Auto) 86.4 H Lymph % (Auto) 5.9 L Lawrence % (Auto) 7.4 Eos % (Auto) 0.0 Baso % (Auto) 0.3 Neut # (Auto) 12.9 H Lymph # (Auto) 0.9 L Lawrence # (Auto) 1.1 H Eos # (Auto) 0.0 Baso # (Auto) 0.0 WBC Differential . Differential Comment Auto diff final ESR PT INR APTT Sodium 137 Potassium 3.8 Chloride 102 Carbon Dioxide 25.7 Anion Gap 9 BUN 7 Creatinine 0.94 Estimated GFR 84 L Random Glucose 124 H Lactic Acid 0.9 Calcium 8.2 L Magnesium 1.9 Total Bilirubin 0.4 AST 13 L ALT 22 Alkaline Phosphatase 65 Troponin I Less than 0.02 L Total Protein 7.3 Albumin 3.5 Urine Color Urine Clarity Urine pH Ur Specific [place] Urine Protein Urine Glucose (UA) Urine Ketones Urine Occult Blood Urine Nitrate Urine Bilirubin Urine Urobilinogen Ur Leukocyte Esterase Urine RBC Urine WBC Micro UA Comment Ur Microscopic Review Urine Culture Comments 02/16/18 02/16/18 02/16/18 21:32 21:32 23:45 WBC RBC Hgb Hct MCV MCH MCHC RDW Plt Count MPV Neut % (Auto) Lymph % (Auto) Lawrence % (Auto) Eos % (Auto) Baso % (Auto) Neut # (Auto) Lymph # (Auto) Lawrence # (Auto) Eos # (Auto) Baso # (Auto) WBC Differential Differential Comment ESR 12 PT 12.4 H INR 1.2 APTT 30.7 H Sodium Potassium Chloride Carbon Dioxide Anion Gap BUN Creatinine Estimated GFR Random Glucose Lactic Acid Calcium Magnesium Total Bilirubin AST ALT Alkaline Phosphatase Troponin I Total Protein Albumin Urine Color Yellow Urine Clarity Clear Urine pH 6.0 Ur Specific [place] 1.005 Urine Protein Negative Urine Glucose (UA) Negative Urine Ketones Negative Urine Occult Blood Negative Urine Nitrate Negative Urine Bilirubin Negative Urine Urobilinogen 4 or greater Ur Leukocyte Esterase Negative Urine RBC 1 Urine WBC 1 Micro UA Comment Culture not ind Ur Microscopic Review Not Reportable Urine Culture Comments Culture not ind - Imaging Impressions Chest X-Ray 02/16/18 21:30 CONCLUSION: No acute cardiopulmonary process. Shoulder X-Ray 02/16/18 23:11 CONCLUSION: No acute abnormality is seen. Cervical Spine CT 02/17/18 01:02 CONCLUSION: 1. Status post corpectomy at C6 with strut seen extending from the inferior aspect of C5 to superior aspect of C7. 2. Anterior cervical fusion plate extending from C4 through C7. 3. Uncovertebral hypertrophy and neural foraminal narrowing at the C4-C5 through C6-C7 levels as described above. Most prominently affected level is the C5-C6 level. Chest CTA 02/17/18 01:02 CONCLUSION: 1. No pulmonary embolus. 2. 2.9 cm subpleural mass seen at the anterior superior left upper lobe. Neoplasm cannot be excluded. This area could be further evaluated noninvasively with PET FDG study. 3. Diffuse emphysematous change. 4. Suspected atelectasis at the posterior lung lower lungs bilaterally. Caprini VTE Risk Assessment Caprini VTE Risk Assessment: No/Low Risk (score <= 1) Caprini Risk Assessment Model: Point Value = 1 Point Value = 2 Point Value = 3 Point Value = 5 Age 41-60 Minor surgery BMI > 25 kg/m2 Swollen legs Varicose veins or History of unexplained or recurrent spontaneous Oral contraceptives or hormone replacement Sepsis (< 1 month) Serious lung disease, including pneumonia (< 1 month) Abnormal pulmonary function Acute myocardial infarction Congestive heart failure (< 1 month) History of inflammatory bowel disease Medical patient at bed rest Age 61-74 Arthroscopic surgery Major open surgery (> 45 min) Laparoscopic surgery (> 45 min) Malignancy Confined to bed (> 72 hours) Immobilizing plaster cast Central venous access Age >= 75 History of VTE Family history of VTE Factor V Leiden Prothrombin [id number] Lupus anticoagulant Anticardiolipin antibodies Elevated serum homocysteine Heparin-induced thrombocytopenia Other congenital or acquired thrombophilia Stroke (< 1 month) Elective arthroplasty Hip, pelvis, or leg fracture Acute spinal cord injury (< 1 month) Prophylaxis Regimen: Total Risk Factor Score Risk Level Prophylaxis Regimen 0-1 Low Early ambulation 2 Moderate Order ONE of the following: *Sequential Compression Device (SCD) *Heparin 5000 units SQ BID 3-4 Higher Order ONE of the following medications: *Heparin 5000 units SQ TID *Enoxaparin/Lovenox 40 mg SQ daily (WT < 150 kg, CrCl > 30 mL/min) *Enoxaparin/Lovenox 30 mg SQ daily (WT < 150 kg, CrCl > 10-29 mL/min) *Enoxaparin/Lovenox 30 mg SQ BID (WT < 150 kg, CrCl > 30 mL/min) AND/OR *Sequential Compression Device (SCD) 5 or more Highest Order ONE of the following medications: *Heparin 5000 units SQ TID (Preferred with Epidurals) *Enoxaparin/Lovenox 40 mg SQ daily (WT < 150 kg, CrCl > 30 mL/min) *Enoxaparin/Lovenox 30 mg SQ daily (WT < 150 kg, CrCl > 10-29 mL/min) *Enoxaparin/Lovenox 30 mg SQ BID (WT < 150 kg, CrCl > 30 mL/min) AND *Sequential Compression Device (SCD) Assessment and Plan - Plan Assessment/plan: 1. Pneumonia Chest CT significant for increased density at the posterior lower lungs bilaterally, consolidation versus atelectasis Patient with fever, leukocytosis and left shift Azithromycin/Rocephin 2. Lung mass Chest CT remarkable for 2.9 cm subpleural mass seen at the anterior superior left upper lobe, concerning for neoplasm Patient symptomatic with left anterior pleuritic chest pain Oncology consulted, appreciate assistance FEN Regular diet Electrolytes: Monitor and replete as needed Heparin
[2018-02-17] MEDS: Heparin - SQ 10,000 UNITS/ML Vial SQ SCH ×3 (05:28→19:59)
[2018-02-17] MEDS: Morphine Inj 4 MG/ML Vial IV.PUSH PRN ×3 (05:29→20:00)
--- NOTE | 2018-02-17 06:41 | ECG ---
Date Performed: 02/16/2018 Time Performed: 20:15:42 PTAGE: 52 years EKG: Sinus rhythm MINIMAL VOLTAGE CRITERIA FOR LVH, CONSIDER NORMAL VARIANT BORDERLINE ECG No significant change from prior electrocardiogram. PREVIOUS TRACING : 05/03/2008 14.19 DOCTOR: Filippo Plummer Interpretating Date/Time 02/17/2018 06:38:42
[2018-02-17] MEDS: Senna/Docusate Sodium 8.6/50 MG Tablet PO SCH ×2 (09:07→20:00)
--- NOTE | 2018-02-17 10:09 | MB ---
cc: William Paz MD DATE: 02/17/2018 ATTENDING PHYSICIAN: Dr. Preston REASON FOR CONSULTATION: Oncology consulted for opinion regarding a patient with new lung mass. HISTORY OF PRESENT ILLNESS: The patient is a 52-year-old male with no significant past medical history except for tobacco abuse, who presented to the hospital with complaint of left shoulder, left neck, and left anterior chest wall pain. He went fishing Thursday night, and stated he was feeling tired Thursday; however, he was able to do all his activity. He took a nap Thursday afternoon. When he woke up, he experienced the pain. The pain is worse with inspiration. He had chills, but did not take his temperature. He denies any cough, denies any shortness of breath. He has no nausea, vomiting, abdominal pain, and he has no diarrhea. Denies dysuria or hematuria. He had a mild headache. He denies visual changes. On presentation, he was noted to have temperature of 101.9. A CT showed a 2.9 cm subpleural mass in the left upper lobe. PAST MEDICAL HISTORY: Denies any coronary disease or diabetes. PAST SURGICAL HISTORY: Neck surgery, rotator cuff repair, knee surgery. FAMILY HISTORY: Siblings are all healthy. He has daughter and 2 sons, and daughter had multiple sclerosis. No family history of cancer. SOCIAL HISTORY: Smoked a pack a day for at least 30 years. Drinks occasionally. He worked in [employer]. ALLERGIES: NO KNOWN DRUG ALLERGIES. MEDICATIONS: Azithromycin, ceftriaxone. REVIEW OF SYSTEMS: CONSTITUTIONAL: As above. EYES: Negative. ENT: Negative. CARDIOVASCULAR: As above. RESPIRATORY: As above. GASTROINTESTINAL: Negative. GENITOURINARY: Negative. MUSCULOSKELETAL: As above. HEMATOLOGY: Negative. ENDOCRINE: Negative. DERMATOLOGY: Negative. PSYCHIATRIC: Negative. IMMUNOLOGIC: Negative. PHYSICAL EXAMINATION: VITAL SIGNS: T-max 101.9, T-current 99.2, blood pressure 115/71, O2 saturation 96% on room air. GENERAL: He is alert, oriented x3, no acute distress. Still has pain in the left chest wall. HEENT: Atraumatic, normocephalic. Pupils are equal, round, reactive. Oropharynx: Dry mucosa. NECK: No thyromegaly. No palpable mass. LYMPHATIC: No palpable cervical, clavicular, axillary, or inguinal lymph nodes. CARDIOVASCULAR: S1, S2. No murmur. LUNGS: Basilar crackles. ABDOMEN: Soft, nontender. Cannot palpate liver or spleen. EXTREMITIES: No cyanosis, clubbing, or edema. No calf tenderness. SKIN: Subcutaneous nodule in the left axillary area. CENTRAL NERVOUS SYSTEM: Nonfocal. LABORATORY DATA: WBC 15, hemoglobin 15.1, platelet count 178. Creatinine 0.94. Liver transaminase within normal limits. ASSESSMENT: 1. Left lung mass. He presented with pleuritic chest pain and fever. He also has leukocytosis. A CT of the chest did not show any pulmonary embolism; however, there is a 2.9 cm subpleural mass at the anterior-superior left upper lobe. Neoplasm cannot be ruled out, especially in a patient with more than [id number]-[id number] smoking history; however, the clinical presentation appears more like a pneumonia. I reviewed his CT scan and there is no significant adenopathy noted. We will get a CT abdomen and pelvis to see if there is any other lesion that could potentially metastasize to the lung. I recommend treating him with antibiotic for now. Can repeat a CT of the chest in a few weeks, and if the lung mass persists, I would recommend biopsy at that time. The patient gets his care in [facility], and he can for followup with his [facility] physician. 2. Chronic obstructive pulmonary disease. CT showed emphysematous changes. The patient has more than 40-[id number]-dorl smoking history. 3. Tobacco dependence. RECOMMENDATIONS: 1. Get CT abdomen and pelvis. 2. Continue antibiotic for treatment of pneumonia per primary team. 2. Recommend repeating CT of the chest in 3-4 weeks, and if the lung mass persists, I would recommend a biopsy. The patient gets his care at the [facility], and he can follow up with the [facility] physician after discharge for followup. Thank you Dr. Preston for asking me to see this patient. MD JACKIE Davidson/ , 08:36 AM , 08:48 AM SHAUN
[2018-02-18] MEDS: Morphine Inj 4 MG/ML Vial IV.PUSH PRN ×2 (03:13→09:34)
[2018-02-18] MEDS: Azithromycin Inj 500 MG in Sodium Chlor 0.9% Inj 250 ML IV.SIG SCH (03:14)
[2018-02-18] MEDS: Heparin - SQ 10,000 UNITS/ML Vial SQ SCH ×4 (03:14→22:14)
[2018-02-18 05:37] LABS: Potassium 3.9 meq/L (3.5-5.1)
[2018-02-18 05:39] LABS: Baso # (Auto) 0.1 th/mm3 (0.0-0.2); Baso % (Auto) 0.4 % (0.0-2.0); Eos # (Auto) 0.2 th/mm3 (0.0-0.4); Eos % (Auto) 1.2 % (0.0-4.0); Hematocrit 40.7 % (39.0-51.0); Hemoglobin 13.8 gm/dL (13.0-17.0); Lymph # (Auto) 1.4 th/mm3 (1.0-4.8); Mean Corpuscular Hemoglobin 32.7 pg (27.0-34.0); Mean Corpuscular Volume 96.3 fL (80.0-100.0); Mean Platelet Volume 8.7 fL (7.0-11.0); Mono # (Auto) 1.7 th/mm3 (0.0-0.9); Mono % (Auto) 10.7 % (0.0-8.0); Neut # (Auto) 12.6 th/mm3 (1.8-7.7); Neut % (Auto) 78.7 % (16.0-70.0); Platelet Count 177 th/mm3 (150-450); Red Blood Count 4.23 mil/mm3 (4.50-5.90); Red Cell Distribution Width 12.3 % (11.6-17.2)
[2018-02-18 05:42] LABS: Calcium 8.3 mg/dL (8.5-10.1); Carbon Dioxide 29.6 meq/L (21.0-32.0)
--- NOTE | 2018-02-18 08:15 | P.PNONC ---
Subjective Interval history: Patient is feeling better this morning. He still has pleuritic left chest pain. He is still febrile. He denies significant shortness of breath or cough. He denies any nausea or vomiting. He is awaiting CT of the abdomen pelvis. Objective Vital Signs/Intake & Output: Vital Signs 02/17/18 09:10 02/17/18 12:00 02/17/18 16:00 Temperature 97.9 F 100.7 F H 98.9 F Pulse Rate 76 85 87 Respiratory Rate 21 17 17 Blood Pressure 104/68 121/77 126/78 Pulse Oximetry 96 97 97 02/17/18 20:00 02/18/18 00:00 02/18/18 04:00 Temperature 100.9 F H 98.9 F 98.3 F Pulse Rate 81 69 64 Respiratory Rate 20 20 20 Blood Pressure 117/67 112/65 106/65 Pulse Oximetry 96 96 97 Intake & Output 02/17/18 02/18/18 02/18/18 18:59 06:59 18:59 Intake Total 720 / 720 590 / 590 Balance 720 / 720 590 / 590 Weight 69.2 kg Intake: IV 350 / 350 Azithromycin Inj 500 MG In NS 250 / 250 Inj 250 ML @ 250 mls/hr IV.SIG Q24H EDY Rx#:[id number] Rocephin Inj 2,000 MG In NS Inj 100 / 100 100 ML @ 200 mls/hr IV.SIG Q24H EDY Rx#:[id number] Oral 720 / 720 240 / 240 Other: # Voids 5 5 # Bowel Movements 0 Result Diagrams: 02/18/18 04:55 02/18/18 04:55 Laboratory Results: Laboratory Results - last 24 hr 02/18/18 02/18/18 04:55 04:55 CBC w Diff Auto diff final WBC 16.0 H RBC 4.23 L Hgb 13.8 Hct 40.7 MCV 96.3 MCH 32.7 MCHC 34.0 RDW 12.3 Plt Count 177 MPV 8.7 Neut % (Auto) 78.7 H Lymph % (Auto) 9.0 [place] % (Auto) 10.7 H Eos % (Auto) 1.2 Baso % (Auto) 0.4 Neut # (Auto) 12.6 H Lymph # (Auto) 1.4 [place] # (Auto) 1.7 H Eos # (Auto) 0.2 Baso # (Auto) 0.1 WBC Differential . Differential Comment . Sodium 138 Potassium 3.9 Chloride 101 Carbon Dioxide 29.6 Anion Gap 7 BUN 11 Creatinine 0.93 Estimated GFR 85 L Random Glucose 101 Calcium 8.3 L Culture Results: Microbiology 02/16/18 21:32 Aerobic Blood Culture - Preliminary Blood - Peripheral No growth in 1 day Anaerobic Blood Culture - Preliminary gram positive cocci 02/16/18 21:22 Aerobic Blood Culture - Preliminary Blood - Peripheral No growth in 1 day Anaerobic Blood Culture - Preliminary No growth in 1 day 02/16/18 21:44 Influenza Types A,B Antigen - Final Nasal Wash Negative for FLU A and B antigen Infection due to influenza A or B cannot be ruled out since the antigen present in the sample may be below the detection limit of the test. Medications: Active Medications Generic Name Dose Route Start Last Admin Trade Name Freq PRN Reason Stop Dose Admin Acetaminophen 650 mg 02/17/18 04:27 02/17/18 19:59 Tylenol PO 650 mg Q4H PRN Administration Temp > 100.4 Heparin Sodium (Porcine) 5,000 units 02/17/18 05:00 02/18/18 04:13 Heparin Inj SQ Not Given Q8H EDY Sodium Chloride 1,000 mls @ 0 mls/hr 02/16/18 22:00 02/16/18 23:32 Ns Inj IV.SIG Infused BOLUS EDY Infusion Wide Open Azithromycin 500 mg/ Sodium 250 mls @ 250 mls/hr 02/18/18 04:00 02/18/18 04: 14 Chloride IV.SIG Infused Q24H EDY Infusion Ceftriaxone Sodium 2,000 mg/ 100 mls @ 200 mls/hr 02/18/18 04:00 02/18/18 03: 44 Sodium Chloride IV.SIG Infused Q24H EDY Infusion Morphine Sulfate 4 mg 02/17/18 04:26 02/18/18 03:13 Morphine Inj IV.PUSH 4 mg Q4H PRN Administration pain 6-10 Senna/Docusate Sodium 1 tab 02/17/18 09:00 02/17/18 20:00 Judy-Colace PO 1 tab BID EDY Administration Objective Remarks: GENERAL: Well-nourished, well-developed patient. No acute distress. SKIN: Warm and dry. HEAD: Normocephalic. EYES: No scleral icterus. No injection or drainage. NECK: Supple, trachea midline. No JVD or lymphadenopathy. LYMPHATIC: No adenopathy. CARDIOVASCULAR: Regular rate and rhythm without murmurs. RESPIRATORY: Breath sounds equal bilaterally. No accessory muscle use. GASTROINTESTINAL: Abdomen soft, non-tender, nondistended. EXTREMITIES: No cyanosis, or edema. MUSCULOSKELETAL: Adequate muscle tone. NEUROLOGICAL: No obvious focal deficit. Awake, alert, and oriented x3. PSYCHIATRIC: Appropriate mood and affect; insight and judgment normal. Assessment/Plan (1) Pneumonia Code(s): J18.9 - Pneumonia, unspecified organism Status: Acute (2) Lung mass Code(s): R91.8 - Other nonspecific abnormal finding of lung field Status: Acute - Plan 1. Left lung mass. He presented with pleuritic chest pain and fever. He also has leukocytosis. A CT of the chest did not show any pulmonary embolism; however, there is a 2.9 cm subpleural mass at the anterior-superior left upper lobe. Neoplasm cannot be ruled out, especially in a patient with more than 44-uwog-gvbw smoking history; however, the clinical presentation appears more like a pneumonia. CT of the chest did not show significant adenopathy. February 18, 2018[address] A[address] CT of the abdomen pelvis. Fever has trended down. The pleuritic chest pain is slightly better. 2. Pneumonia. He is still febrile and has leukocytosis. Blood culture grew Gram-positive cocci. He will continue antibiotic. 2. Chronic obstructive pulmonary disease. CT showed emphysematous changes. The patient has more than 28-ilog-[id number] smoking history. 3. Tobacco dependence. PLAN: 1. Await CT abdomen and pelvis. 2. Continue antibiotic for treatment of pneumonia per primary team. 2. Recommend repeating CT of the chest in about 3 weeks, and if the lung mass persists, I would recommend a biopsy. [facility], and he can follow up with the [facility] physician after discharge for followup.
[2018-02-18] MEDS: Senna/Docusate Sodium 8.6/50 MG Tablet PO SCH ×2 (09:34→22:14)
--- NOTE | 2018-02-18 10:45 | CT ---
EXAM DATE: 02/18/2018 10:29 AM EDT AGE/SEX: 52 years / Male INDICATIONS: Abnormality on prior exam. Evaluate for metastatic disease. CLINICAL DATA: This is the patient's initial encounter. Patient reports that signs and symptoms have been present for 1 day and indicates a pain score of 0/10. MEDICAL/SURGICAL HISTORY: None. None. ORAL CONTRAST: No oral contrast ingested. RADIATION DOSE: 6.78 CTDI (mGy) COMPARISON: [facility], CTA PULMONARY W CONTRAST W 3D, 02/17/2018. . TECHNIQUE: Multiple contiguous axial images were obtained through the abdomen and pelvis following b olus infusion of 95 ml Omnipaque 350 (iohexol) nonionic water-soluble contrast as a single exam dos e. No oral contrast ingested. Using automated exposure control and adjustment of the mA and/or kV ac cording to patient size, radiation dose was kept as low as reasonably achievable to obtain optimal di agnostic quality images. DICOM format image data is available electronically for review and comparis on. FINDINGS: LOWER LUNGS: Minimal groundglass opacities at the lung bases with trace left pleural effusion. LIVER: The liver has a homogeneous density without space-occupying lesion. There is no dilation of t he biliary tree. SPLEEN: Homogeneous density without enlargement. PANCREAS: Unremarkable without mass or calcification. KIDNEYS: Kidneys demonstrate symmetrical enhancement and are symmetrical in size without evidence fo r radiopaque renal calculi or hydronephrosis. ADRENAL GLANDS: Unremarkable. AORTA: Dominique-aneurysmal. BOWEL/MESENTERY: Diffuse colonic diverticulosis most prominently near the splenic flexure and distal descending colon. Bowel loops are normal in caliber without evidence for obstruction. No significant free fluid or free air. No drainable fluid collections. ABDOMINAL WALL: Intact. RETROPERITONEUM: Subcentimeter nodes do not meet CT size criteria. BLADDER: Contours are smooth. REPRODUCTIVE: No abnormal masses or calcifications seen. BONY STRUCTURES: No focal lytic or blastic bony lesions. Mild degenerative spondylosis most prominen tly at L2-3. CONCLUSION: 1. No CT evidence for abdominal/pelvic mass or metastatic disease. 2. Ancillary findings, as above. Electronically signed by: Rodri Mario MD 02/18/2018 10:43 AM EDT
--- NOTE | 2018-02-18 10:55 | P.PN ---
Subjective Interval history: 52-year-old male who is seen and examined today for follow-up on febrile illness, lung mass. Patient still with significant amount of pain, worse whenever he takes a deep breath. Patient is being followed by oncology. Patient still with fever T-max 100.9. Vital signs are stable. Physical Exam Vital signs: Vital Signs 02/17/18 12:00 02/17/18 16:00 02/17/18 20:00 Temperature 100.7 F H 98.9 F 100.9 F H Pulse Rate 85 87 81 Respiratory Rate 17 17 20 Blood Pressure 121/77 126/78 117/67 Pulse Oximetry 97 97 96 02/18/18 00:00 02/18/18 04:00 Temperature 98.9 F 98.3 F Pulse Rate 69 64 Respiratory Rate 20 20 Blood Pressure 112/65 106/65 Pulse Oximetry 96 97 Intake & Output 02/17/18 02/18/18 02/18/18 18:59 06:59 18:59 Intake Total 720 / 720 590 / 590 Balance 720 / 720 590 / 590 Weight 69.2 kg Intake: IV 350 / 350 Azithromycin Inj 500 MG In NS 250 / 250 Inj 250 ML @ 250 mls/hr IV.SIG Q24H [facility] Rx#:[id number] Rocephin Inj 2,000 MG In NS Inj 100 / 100 100 ML @ 200 mls/hr IV.SIG Q24H [facility] Rx#:[id number] Oral 720 / 720 240 / 240 Other: # Voids 5 5 # Bowel Movements 0 Narrative: GENERAL: Well-developed, well-nourished, in no acute distress. alert and orientated HEENT: Head is normocephalic without any lesions or masses noted. Facial features are symmetric. Eyes: Extraocular muscles are intact. Conjunctivae were clear. NECK: Supple without any masses. Trachea midline no deviation. No JVD, CARDIAC: Regular rhythm, regular rate. S1/S2 are heard. No murmurs gallops or rubs. LUNGS: Clear to auscultation bilaterally. No wheeze, rhonchi or rales. No use of accessory muscles on inspiration or expiration. ABDOMEN: Soft, nontender. Nondistended. Bowel sounds heard in all 4 quadrants. No organomegaly or masses. Negative rebound, negative guarding EXTREMITIES: No edema, pulses are equal bilaterally. No cyanosis or clubbing NEUROLOGY: Mood and affect appear appropriate. Cranial nerves II through XII grossly intact. Moving all extremities, speech is clear Results - Labs CBC & Chem 7: 02/18/18 04:55 02/18/18 04:55 Laboratory Results - last 24 hr 02/18/18 02/18/18 04:55 04:55 CBC w Diff Auto diff final WBC 16.0 H RBC 4.23 L Hgb 13.8 Hct 40.7 MCV 96.3 MCH 32.7 MCHC 34.0 RDW 12.3 Plt Count 177 MPV 8.7 Neut % (Auto) 78.7 H Lymph % (Auto) 9.0 [place] % (Auto) 10.7 H Eos % (Auto) 1.2 Baso % (Auto) 0.4 Neut # (Auto) 12.6 H Lymph # (Auto) 1.4 [place] # (Auto) 1.7 H Eos # (Auto) 0.2 Baso # (Auto) 0.1 WBC Differential . Differential Comment . Sodium 138 Potassium 3.9 Chloride 101 Carbon Dioxide 29.6 Anion Gap 7 BUN 11 Creatinine 0.93 Estimated GFR 85 L Random Glucose 101 Calcium 8.3 L Microbiology 02/16/18 21:32 Blood - Peripheral Aerobic Blood Culture - Preliminary No growth in 1 day 02/16/18 21:32 Blood - Peripheral Anaerobic Blood Culture - Preliminary gram positive cocci 02/16/18 21:22 Blood - Peripheral Aerobic Blood Culture - Preliminary No growth in 1 day 02/16/18 21:22 Blood - Peripheral Anaerobic Blood Culture - Preliminary No growth in 1 day - Imaging Impressions Abdomen/Pelvis CT 02/18/18 04:43 CONCLUSION: 1. No CT evidence for abdominal/pelvic mass or metastatic disease. 2. Ancillary findings, as above. Assessment and Plan - Plan Febrile illness -CT scan does indicate posterior lower lung griffin with increased density related to consolidation or atelectasis -Patient continued on antibiotics for community acquired pneumonia with Rocephin and Zithromax -Duo nebs as needed -Incentive spirometry -Blood cultures are positive with 1/4 bottles with gram-positive cocci, possible contamination, await identification for determination. Obtain another set of blood cultures Left upper lung mass, concerning for neoplasm -Oncology evaluated patient and recommending repeat CT scan of the chest in 3 weeks, if mass persists would recommend biopsy. -CT the abdomen was performed which did not indicate any signs of malignancy or metastasis -Continue pain control DVT prevention -Subcutaneous heparin Discharge Planning: Discharge planning when patient is afebrile, blood cultures evaluated for contamination versus actual bacteremia.
--- NOTE | 2018-02-18 13:19 | ECHRPT ---
Indication: Sepsis Possible Endocarditis CONCLUSIONS Normal left ventricular size. Wall thickness is normal. The left ventricular systolic function is normal with an estimated ejection fraction in the range of 55-60%. [id number] mitral valve regurgitation. There is trace tricuspid valve regurgitation. The estimated pulmonary arterial pressure is 40 mmHg. The inferior vena cava is dilated. No valvular vegetations were visualized on current study. A ALISHA may be considered for improved study sensitivity if deemed clinically indicated. BP: / HR: Rhythm: MEASUREMENTS (Male / Female) Normal Values Technical Quality:Good 2D ECHO LV Diastolic Diameter PLAX 4.6 cm 4.2 - 5.9 / 3.9 - 5.3 cm LV Systolic Diameter PLAX 3.1 cm IVS Diastolic Thickness 1.0 cm 0.6 - 1.0 / 0.6 - 0.9 cm LVPW Diastolic Thickness 1.0 cm 0.6 - 1.0 / 0.6 - 0.9 cm LV Relative Wall Thickness 0.4 RV Internal Dim ED PLAX 2.6 cm LVOT Diameter 1.9 cm Aortic Root Diameter 2.7 cm LA Systolic Diameter LX 3.6 cm 3.0 - 4.0 / 2.7 - 3.8 cm DOPPLER AV Peak Velocity 152.0 cm/s AV Peak Gradient 9.2 mmHg LVOT Peak Velocity 137.0 cm/s LVOT Peak Gradient 7.5 mmHg AV Area Cont Eq pk 2.6 cm Mitral E Point Velocity 82.9 cm/s Mitral A Point Velocity 71.1 cm/s Mitral E to A Ratio 1.2 LV E' Lateral Velocity 13.2 cm/s Mitral E to LV E' Lateral Ratio 6.3 LV E' Septal Velocity 10.6 cm/s Mitral E to LV E' Septal Ratio 7.8 TR Peak Velocity 275.0 cm/s TR Peak Gradient 30.3 mmHg Right Atrial Pressure 10.0 mmHg Pulmonary Artery Systolic Pressu 40.3 mmHg Right Ventricular Systolic Press 40.3 mmHg PV Peak Velocity 102.0 cm/s PV Peak Gradient 4.2 mmHg FINDINGS LEFT VENTRICLE Normal left ventricular size. Wall thickness is normal. The left ventricular systolic function is normal with an estimated ejection fraction in the range of 55-60%. No regional wall motion abnormalities are present. RIGHT VENTRICLE Normal right ventricular size and systolic function. LEFT ATRIUM The left atrial size is normal. RIGHT ATRIUM The right atrial size is normal. ATRIAL SEPTUM Normal atrial septal thickness without atrial level shunting by limited color doppler interrogation. AORTA The aortic root and proximal ascending aorta are normal in size on limited imaging. MITRAL VALVE Structurally normal mitral valve. [id number] mitral valve regurgitation. AORTIC VALVE Trileaflet aortic valve. No aortic valve stenosis or regurgitation. TRICUSPID VALVE The tricuspid valve is not well visualized. There is trace tricuspid valve regurgitation. The estimated pulmonary arterial pressure is 40 mmHg. PULMONARY VALVE No pulmonary valve regurgitation or stenosis. VESSELS The inferior vena cava is dilated. PERICARDIUM No pericardial effusion. Lai Miller (Electronically Signed) Final Date:18 February 2018 13:17
--- NOTE | 2018-02-18 19:15 | MB ---
cc: Manuel Figueroa MD DATE: 02/18/2018 REQUESTING PHYSICIAN: Steven Garrido MD REASON FOR VISIT: Bacteremia. Possible bilateral lung consolidation on CT scan. HISTORY OF PRESENT ILLNESS: This is a 52-year-old white male who presented to the emergency department on 02/16/2018 complaining of left arm pain and also pain in the left chest. The patient has had history of left rotator cuff repair and also neck surgery. He reported that over the few days prior to being admitted to the hospital, he was participating in a lot of activities and he was running around and then he became very tired. His sister noticed that he was having shortness of breath and the pain in his left arm was becoming worse. He also noted having pain at the left lateral chest wall in addition. He reports that he has new dentures, which he started wearing recently. He states that there was a problem with the denture and it was causing an abrasion at the anterior lower gum. On presentation, he had a temperature of 101.9 and a white blood cell count of 18. He also noticed some difficulty passing urine, but no burning on urination. Urinalysis was performed and it was unremarkable. Patient had a chest x-ray which showed no acute cardiopulmonary process. CT scan of the cervical spine was performed and it showed findings suggestive of a small corpectomy at C6, extending from inferior aspect of C5 to superior aspect of C7. CTA of the chest showed no pulmonary embolism. A 2.9 cm subpleural mass was seen in the anterior superior left upper lobe. There was diffuse emphysematous change noted. The patient has had no sputum production. The patient states that he had chills after he came to the hospital, but he does not recall having chills before that. He continues to have pain in the left posterior thorax in the left shoulder and left lateral chest wall. The patient denies IV drug use. PAST MEDICAL HISTORY: Denies medical problems. PAST SURGICAL HISTORY: History of neck surgery. History of shoulder surgery. Left rotator cuff repair. ALLERGIES: NO KNOWN DRUG ALLERGIES. MEDICATIONS: 1. Ceftriaxone. 2. Azithromycin. 3. DuoNeb. 4. Morphine sulfate p.r.n. 5. Judy-Colace. SOCIAL HISTORY: Positive tobacco use. Positive alcohol use. Denies illicit drugs. FAMILY HISTORY: Noncontributory. REVIEW OF SYSTEMS: All systems have been reviewed and negative except for features mentioned in the history of present illness. PHYSICAL EXAMINATION: GENERAL: This is a slim male who is in no acute distress. He is awake and alert and oriented. VITAL SIGNS: Include temperature 99.8, BP 116/59, respirations 20, heart rate 85. HEENT: Head is atraumatic. Extraocular movements are grossly intact. Pupils reactive to light. No icterus. Oropharynx: Moist mucosa. No lesions. NECK: Semi stiff left lateral neck movement, but otherwise supple. LUNGS: Slight decreased breath sounds at the bases, otherwise clear. HEART: Regular, S1, S2, without murmurs, rubs or gallops. ABDOMEN: Bowel sounds present. Soft, nontender. No palpable mass. RECTAL: Not performed. EXTREMITIES: The left posterior shoulder is tender and there is swelling at the scapular region posteriorly. Otherwise, no clubbing or cyanosis or edema. SKIN: No rash. NEUROLOGIC: No gross focal findings. PSYCHIATRIC: The patient is calm and cooperative LABORATORY DATA: WBC 7.0, platelet count 157, hemoglobin 15.8, creatinine 0.9. Blood cultures from 02/16/2018 has Staphylococcus aureus in 3/4 bottles. Influenza test negative. IMPRESSION: 1. Sepsis. The patient presented with fever and leukocytosis and has positive blood cultures with Staphylococcus aureus. Questionable etiology, a 2-D echocardiogram was performed and no vegetation was detected. 2. Left shoulder pain and swelling on the left scapular region. This possibly could be due to inflammation. 3. Lung mass noted on CTA of the chest. This is noted to be subpleural mass at the anterior superior left upper lobe and could be related to the pain that the patient is experiencing at the left upper extremity. RECOMMENDATIONS: 1. Continue ceftriaxone. Monitor sensitivity and ID of the Staphylococcus in the blood culture. 2. Continue azithromycin. 3. Repeat the blood cultures. 4. ALISHA to further evaluate the heart valves. 5. Monitor clinical response to antibiotic. The etiology of the Staphylococcus aureus at this point is unclear. The patient is also noted to have had swelling of his left elbow. However, currently, the left elbow does not appear swollen and it is not tender on palpation. Thank you for this consultation. I will follow the patient's progress along with you and will make further recommendations and follow up if necessary. Manuel Figueroa MD FFD/ct , 04:07 PM , 04:31 PM
[2018-02-19] MEDS: Azithromycin Inj 500 MG in Sodium Chlor 0.9% Inj 250 ML IV.SIG SCH (04:14)
[2018-02-19] MEDS: Heparin - SQ 10,000 UNITS/ML Vial SQ SCH ×3 (05:43→20:09)
--- NOTE | 2018-02-19 07:39 | P.CONCA ---
History of Present Illness Primary Care Provider: [facility] History of Present Illness: 52-year-old male with no significant past medical history who presented for left shoulder pain and was found to have signs of sepsis with high fever and leukocytosis. He has been found to have high-grade bacteremia with 3/4 initial blood cultures positive for staph aureus and infectious disease has been consulted. No definite source of infection identified. Transthoracic echo done and was essentially normal. ALISHA has been requested, patient agreeable. The patient was also noted to have new finding of lung mass on chest imaging, hematology/oncology on board. EKG with NSR. Review of Systems All other systems reviewed negative except as stated in [facility] - History History Provided By: Patient, Medical Record - Medical History Medical History: Medical History (Last Reviewed 02/17/18 @ 04:31 by Ashley Preston MD) Patient denies medical problems - Surgical History Surgical History: Surgical History (Last Reviewed 02/17/18 @ 04:31 by Ashley Preston MD) History of knee surgery History of neck surgery History of shoulder surgery - Family History Family History: Family History (Last Updated 02/17/18 @ 04:32 by Ashley Preston MD) Other COPD (chronic obstructive pulmonary disease) - Tobacco History Second Hand Smoke Exposure: Yes Tobacco Use In Past 30 Days: Yes Smoking Status: Current every day smoker Tobacco Type: Cigarettes - Alcohol History How Often Do You Have a Drink Containing Alcohol: 2 to 4 times a month - Substance Use History Substance History: No History of Abuse - Travel History Recent Travel in the [place] Within the Last 8 Weeks: No Recent Travel Out of the Country Within the Last 8 Weeks: No - Immunization History Tetanus Immunization: Unsure Medications and Allergies Active Medications: Active Medications Acetaminophen (Tylenol) 650 mg PO Q4H PRN PRN Reason: Temp > 100.4 Last Admin: 02/17/18 19:59 Dose: 650 mg Hydrocodone Bitart/Acetaminophen ([place] 10/325) 1 tab PO Q6H PRN PRN Reason: PAIN SCALE 6 TO 10 Last Admin: 02/19/18 04:14 Dose: 1 tab Hydrocodone Bitart/Acetaminophen ([place] 5/325) 1 tab PO Q6H PRN PRN Reason: PAIN SCALE 1 TO 5 Al Hydroxide/Mg Hydroxide (Milk Of Magnesia Liq) 30 ml PO Q12H PRN PRN Reason: Mild Constipation Albuterol (Duoneb Neb (Prn)) 1 ampul NEB Q6HR NEB PRN PRN Reason: SHORTNESS OF BREATH/WHEEZING Bisacodyl (Dulcolax Supp) 10 mg RECTAL DAILY PRN PRN Reason: SEVERE CONSITIPATION Heparin Sodium (Porcine) (Heparin Inj) 5,000 units SQ Q8H EDY Last Admin: 02/19/18 05:43 Dose: 5,000 units Sodium Chloride (Ns Inj) 1,000 mls @ 0 mls/hr IV.SIG BOLUS EDY Last Infusion: 02/16/18 23:32 Dose: Infused Azithromycin 500 mg/ Sodium (Chloride) 250 mls @ 250 mls/hr IV.SIG Q24H [facility] Last Infusion: 02/19/18 05:31 Dose: Infused Ceftriaxone Sodium 2,000 mg/ (Sodium Chloride) 100 mls @ 200 mls/hr IV.SIG Q24H [facility] Last Infusion: 02/19/18 04:20 Dose: Infused Lactulose (Lactulose Liq) 30 ml PO DAILY PRN PRN Reason: SEVERE CONSITIPATION Morphine Sulfate (Morphine Inj) 4 mg IV.PUSH Q4H PRN PRN Reason: BREAKTHROUGH PAIN Last Admin: 02/18/18 09:34 Dose: 4 mg Ondansetron HCl (Zofran Inj) 4 mg IV.PUSH Q6H PRN PRN Reason: NAUSEA OR VOMITING Senna/Docusate Sodium (Judy-Colace) 1 tab PO BID [facility] Last Admin: 02/18/18 22:14 Dose: 1 tab Sennosides (Senokot) 17.2 mg PO Q12H PRN PRN Reason: Moderate Constipation Allergies Allergy/AdvReac Type Severity Reaction Status Date / Time No Known Allergies Allergy Verified 02/16/18 20:23 Home Medications Medication Instructions Recorded Confirmed Type multivitamin 1 tab PO DAILY 02/16/18 02/16/18 History Exam Vital signs: Vital Signs 02/18/18 08:00 02/18/18 12:00 02/18/18 16:00 Temperature 99.8 F H 99.9 F H Pulse Rate 85 86 Respiratory Rate 16 20 20 Blood Pressure 116/59 L 116/78 Pulse Oximetry 98 95 02/19/18 00:00 02/19/18 04:00 Temperature 98.8 F 98.3 F Pulse Rate 75 80 Respiratory Rate 20 20 Blood Pressure 124/75 122/80 Pulse Oximetry 95 98 Intake & Output 02/18/18 02/19/18 02/19/18 18:59 06:59 18:59 Intake Total 1301 / 1301 410 / 410 Balance 1301 / 1301 410 / 410 Weight 153 lb 14.122 oz Intake: IV 350 / 350 Azithromycin Inj 500 MG In NS 250 / 250 Inj 250 ML @ 250 mls/hr IV.SIG Q24H [facility] Rx#:[id number] Rocephin Inj 2,000 MG In NS Inj 100 / 100 100 ML @ 200 mls/hr IV.SIG Q24H [facility] Rx#:[id number] Oral 1301 / 1301 60 / 60 Other: # Voids 9 Date of Last Bowel Movement 02/16/18 # Bowel Movements 0 Narrative: GENERAL: Well-developed well-nourished. In no acute distress. NECK: No carotid bruits. No JVD. CARDIOVASCULAR: Regular rate and rhythm. No murmur appreciated. RESPIRATORY: No accessory muscle use. Clear to auscultation. Breath sounds equal bilaterally. MUSCULOSKELETAL: No clubbing or cyanosis. No edema. NEUROLOGICAL: Awake and alert. Normal speech. Results 02/18/18 04:55 02/18/18 04:55 CBC 02/18/18 Range/Units 04:55 WBC 16.0 H (4.0-11.0) th/mm3 RBC 4.23 L (4.50-5.90) mil/mm3 Hgb 13.8 (13.0-17.0) gm/dL Hct 40.7 (39.0-51.0) % Plt Count 177 (150-450) th/mm3 Neut # (Auto) 12.6 H (1.8-7.7) th/mm3 Lymph # (Auto) 1.4 (1.0-4.8) th/mm3 [place] # (Auto) 1.7 H (0.0-0.9) th/mm3 Eos # (Auto) 0.2 (0.0-0.4) th/mm3 Baso # (Auto) 0.1 (0.0-0.2) th/mm3 Comprehensive Metabolic Panel 02/18/18 Range/Units 04:55 Sodium 138 (136-145) meq/L Potassium 3.9 (3.5-5.1) meq/L Chloride 101 (98-107) meq/L Carbon Dioxide 29.6 (21.0-32.0) meq/L BUN 11 (7-18) mg/dL Creatinine 0.93 (0.60-1.30) mg/dL Calcium 8.3 L (8.5-10.1) mg/dL Intake and Output 02/18/18 02/19/18 02/19/18 22:59 06:59 14:59 Intake Total 1301 / 1301 410 / 410 Balance 1301 / 1301 410 / 410 Intake: IV 350 / 350 Azithromycin Inj 500 MG In NS 250 / 250 Inj 250 ML @ 250 mls/hr IV.SIG Q24H [facility] Rx#:[id number] Rocephin Inj 2,000 MG In NS Inj 100 / 100 100 ML @ 200 mls/hr IV.SIG Q24H [facility]Y Rx#:[id number] Oral 1301 / 1301 60 / 60 Other: # Voids 9 Date of Last Bowel Movement 02/16/18 # Bowel Movements 0 Weight 153 lb 14.122 oz - Imaging and Cardiology Imaging: Impressions Abdomen/Pelvis CT 02/18/18 04:43 CONCLUSION: 1. No CT evidence for abdominal/pelvic mass or metastatic disease. 2. Ancillary findings, as above. Assessment and Plan - Plan 52-year-old male with no significant past medical history who presented for left shoulder pain and was found to have signs of sepsis with high fever and leukocytosis Staph aureus bacteremia: Rule out endocarditis, n.p.o. for ALISHA today. Discussed Condition With: Patient, Dr. Aly
--- NOTE | 2018-02-19 07:43 | P.PNONC ---
Subjective Interval history: Patient has been transferred back to the main campus for ALISHA. His shoulder pain and chest pain has improved. He was afebrile the last 24 hours. He denies any shortness of breath or cough. Objective Vital Signs/Intake & Output: Vital Signs 02/18/18 08:00 02/18/18 12:00 02/18/18 16:00 Temperature 99.8 F H 99.9 F H Pulse Rate 85 86 Respiratory Rate 16 20 20 Blood Pressure 116/59 L 116/78 Pulse Oximetry 98 95 02/19/18 00:00 02/19/18 04:00 Temperature 98.8 F 98.3 F Pulse Rate 75 80 Respiratory Rate 20 20 Blood Pressure 124/75 122/80 Pulse Oximetry 95 98 Intake & Output 02/18/18 02/19/18 02/19/18 18:59 06:59 18:59 Intake Total 1301 / 1301 410 / 410 Balance 1301 / 1301 410 / 410 Weight 69.8 kg Intake: IV 350 / 350 Azithromycin Inj 500 MG In NS 250 / 250 Inj 250 ML @ 250 mls/hr IV.SIG Q24H [facility] Rx#:[id number] Rocephin Inj 2,000 MG In NS Inj 100 / 100 100 ML @ 200 mls/hr IV.SIG Q24H EDY Rx#:[id number] Oral 1301 / 1301 60 / 60 Other: # Voids 9 Date of Last Bowel Movement 02/16/18 # Bowel Movements 0 Result Diagrams: 02/18/18 04:55 02/18/18 04:55 Culture Results: Microbiology 02/16/18 21:22 Aerobic Blood Culture - Final Blood - Peripheral Staphylococcus aureus Anaerobic Blood Culture - Final Staphylococcus aureus 02/16/18 21:32 Aerobic Blood Culture - Preliminary Blood - Peripheral No growth in 2 days Anaerobic Blood Culture - Preliminary Staphylococcus aureus 02/16/18 21:44 Influenza Types A,B Antigen - Final Nasal Wash Negative for FLU A and B antigen Infection due to influenza A or B cannot be ruled out since the antigen present in the sample may be below the detection limit of the test. Imaging Studies: Impressions Abdomen/Pelvis CT 02/18/18 04:43 CONCLUSION: 1. No CT evidence for abdominal/pelvic mass or metastatic disease. 2. Ancillary findings, as above. Medications: Active Medications Generic Name Dose Route Start Last Admin Trade Name Freq PRN Reason Stop Dose Admin Acetaminophen 650 mg 02/17/18 04:27 02/17/18 19:59 Tylenol PO 650 mg Q4H PRN Administration Temp > 100.4 Hydrocodone Bitart/Acetaminophen 1 tab 02/18/18 10:55 02/19/18 04:14 [place] 10/325 PO 1 tab Q6H PRN Administration PAIN SCALE 6 TO 10 Heparin Sodium (Porcine) 5,000 units 02/17/18 05:00 02/19/18 05:43 Heparin Inj SQ 5,000 units Q8H EDY Administration Sodium Chloride 1,000 mls @ 0 mls/hr 02/16/18 22:00 02/16/18 23:32 Ns Inj IV.SIG Infused BOLUS EDY Infusion Wide Open Azithromycin 500 mg/ Sodium 250 mls @ 250 mls/hr 02/18/18 04:00 02/19/18 05: 31 Chloride IV.SIG Infused Q24H EDY Infusion Ceftriaxone Sodium 2,000 mg/ 100 mls @ 200 mls/hr 02/18/18 04:00 02/19/18 04: 20 Sodium Chloride IV.SIG Infused Q24H EDY Infusion Morphine Sulfate 4 mg 02/17/18 04:26 02/18/18 09:34 Morphine Inj IV.PUSH 4 mg Q4H PRN Administration BREAKTHROUGH PAIN Senna/Docusate Sodium 1 tab 02/17/18 09:00 02/18/18 22:14 Judy-Colace PO 1 tab BID EDY Administration Objective Remarks: GENERAL: Well-nourished, well-developed patient. SKIN: Warm and dry. HEAD: Normocephalic. EYES: No scleral icterus. No injection or drainage. NECK: Supple, trachea midline. No JVD or lymphadenopathy. LYMPHATIC: No adenopathy. CARDIOVASCULAR: Regular rate and rhythm without murmurs. RESPIRATORY: Mild bibasilar crackles. GASTROINTESTINAL: Abdomen soft, non-tender, nondistended. EXTREMITIES: No cyanosis, or edema. MUSCULOSKELETAL: Adequate muscle tone. NEUROLOGICAL: No obvious focal deficit. Awake, alert, and oriented x3. PSYCHIATRIC: Appropriate mood and affect; insight and judgment normal. Assessment/Plan (1) Pneumonia Code(s): J18.9 - Pneumonia, unspecified organism Status: Acute (2) Lung mass Code(s): R91.8 - Other nonspecific abnormal finding of lung field Status: Acute - Plan 1. Left lung mass. He presented with pleuritic chest pain and fever. He also has leukocytosis. A CT of the chest did not show any pulmonary embolism; however, there is a 2.9 cm subpleural mass at the anterior-superior left upper lobe. Neoplasm cannot be ruled out, especially in a patient with more than [id number] smoking history; however, the clinical presentation appears more like a pneumonia. CT of the chest did not show significant adenopathy. February 18, 2018. Await CT of the abdomen pelvis. Fever has trended down. February 19, 2018. CT of the abdomen pelvis did not show any mass or adenopathy. 2. Pneumonia. He is still febrile and has leukocytosis. Blood culture grew Gram-positive cocci. He will continue antibiotic. February 19, 2018. Blood culture grew Staphylococcus aureus in multiple bottles. 2D echocardiogram did not show clear vegetation. Patient is awaiting ALISHA. He is now afebrile. CBC is still pending. ID is following. 2. Chronic obstructive pulmonary disease. CT showed emphysematous changes. The patient has more than [id number]-arov smoking history. 3. Tobacco dependence. PLAN: 1. Review CT abdomen and pelvis with patient. 2. Continue antibiotic for treatment of pneumonia per primary team and ID. 3. Recommend repeating CT of the chest in about 3 weeks, and if the lung mass persists, I would recommend a biopsy. The patient gets [facility] care at the [facility], and he can follow up with the [facility] physician after discharge for followup. 4. Await ALISHA.
[2018-02-19 07:48] LABS: Baso % (Auto) 0.4 % (0.0-2.0); Eos # (Auto) 0.2 th/mm3 (0.0-0.4); Eos % (Auto) 1.6 % (0.0-4.0); Hematocrit 41.1 % (39.0-51.0); Lymph # (Auto) 1.1 th/mm3 (1.0-4.8); Mean Corpuscular Hemoglobin 32.9 pg (27.0-34.0); Mean Corpuscular Volume 96.9 fL (80.0-100.0); Mean Platelet Volume 8.9 fL (7.0-11.0); Mono # (Auto) 1.3 th/mm3 (0.0-0.9); Mono % (Auto) 10.6 % (0.0-8.0); Neut # (Auto) 9.5 th/mm3 (1.8-7.7); Neut % (Auto) 78.4 % (16.0-70.0); Platelet Count 226 th/mm3 (150-450); Red Blood Count 4.24 mil/mm3 (4.50-5.90); Red Cell Distribution Width 13.4 % (11.6-17.2); White Blood Count 12.2 th/mm3 (4.0-11.0)
[2018-02-19] MEDS ORDERED: Metoprolol Tartrate 25 MG Tablet PO ONE (07:55)
[2018-02-19] MEDS ORDERED: Chlorhexidine Gluconate 2% 1 Pack (2 Cloths) TOPICAL ONE (07:55)
[2018-02-19] MEDS ORDERED: Sodium Chlor 0.9% Inj 500 ML IV.SIG SCH (08:00)
[2018-02-19] MEDS: Senna/Docusate Sodium 8.6/50 MG Tablet PO SCH ×2 (09:00→20:10)
--- NOTE | 2018-02-19 10:40 | ECHRPT ---
Indication: SEPSIS ENDOCARDITIS CONCLUSIONS Normal left ventricular size and wall thickness. The left ventricular systolic function is normal wi th an estimated ejection fraction in the range of 60-65%. Left ventricular diastolic function parameters a re normal. Trace mitral valve regurgitation. No vegetations. BP: / HR: Rhythm: Technical Quality: Medications Complications Proc. Components FINDINGS LEFT VENTRICLE Normal left ventricular size and wall thickness. The left ventricular systolic function is normal wi th an estimated ejection fraction in the range of 60-65%. Left ventricular diastolic function parameters a re normal. RIGHT VENTRICLE Normal right ventricular size and systolic function. LEFT ATRIUM The left atrial size is normal. RIGHT ATRIUM The right atrial size is normal. ATRIAL APPENDAGES Normal left atrial appendage size with no evidence of thrombus formation. ATRIAL SEPTUM Normal atrial septal thickness without atrial level shunting by limited color doppler interrogation. AORTA The aortic root and proximal ascending aorta are normal in size on limited imaging. MITRAL VALVE Mild thickening of the mitral valve leaflets. Trace mitral valve regurgitation. Mitral annular calcification is present. No mitral valve stenosis. AORTIC VALVE Trileaflet aortic valve. Aortic valve sclerosis is present. No aortic valve regurgitation. No aortic valve stenosis. TRICUSPID VALVE Structurally normal tricuspid valve. No tricuspid valve stenosis or regurgitation. VESSELS The inferior vena cava is normal in size. PULMONARY VALVE The pulmonary valve is not well visualized. PERICADIUM No pericardial effusion. Romaine Aly MD, FACC (Electronically Signed) Final Date:19 February 2018 10:40
--- NOTE | 2018-02-19 11:25 | P.PN ---
Subjective Interval history: Follow-up lung mass/pneumonia/rule out endocarditis February 19, 2018-patient seen and examined, he had ALISHA this morning. Denies any significant shortness of breath. Currently afebrile Physical Exam Vital signs: Vital Signs 02/18/18 12:00 02/18/18 16:00 02/19/18 00:00 Temperature 99.8 F H 99.9 F H 98.8 F Pulse Rate 85 86 75 Respiratory Rate 20 20 20 Blood Pressure 116/59 L 116/78 124/75 Pulse Oximetry 98 95 95 02/19/18 04:00 02/19/18 08:00 Temperature 98.3 F 98.9 F Pulse Rate 80 72 Respiratory Rate 20 18 Blood Pressure 122/80 108/68 Pulse Oximetry 98 97 Intake & Output 02/18/18 02/19/18 02/19/18 18:59 06:59 18:59 Intake Total 1301 / 1301 410 / 410 Balance 1301 / 1301 410 / 410 Weight 69.8 kg Intake: IV 350 / 350 Azithromycin Inj 500 MG In NS 250 / 250 Inj 250 ML @ 250 mls/hr IV.SIG Q24H [facility] Rx#:[id number] Rocephin Inj 2,000 MG In NS Inj 100 / 100 100 ML @ 200 mls/hr IV.SIG Q24H [facility] Rx#:[id number] Oral 1301 / 1301 60 / 60 Other: # Voids 9 Date of Last Bowel Movement 02/16/18 # Bowel Movements 0 Narrative: GENERAL: Well-developed well-nourished. In no acute distress. NECK: No carotid bruits. No JVD. CARDIOVASCULAR: Regular rate and rhythm. No murmur appreciated. RESPIRATORY: No accessory muscle use. Clear to auscultation. Breath sounds equal bilaterally. MUSCULOSKELETAL: No clubbing or cyanosis. No edema. NEUROLOGICAL: Awake and alert. Normal speech. Results - Labs CBC & Chem 7: 02/19/18 06:40 02/18/18 04:55 Laboratory Results - last 24 hr 02/19/18 06:40 WBC 12.2 H RBC 4.24 L Hgb 14.0 Hct 41.1 MCV 96.9 MCH 32.9 MCHC 34.0 RDW 13.4 Plt Count 226 MPV 8.9 Neut % (Auto) 78.4 H Lymph % (Auto) 9.0 Lee % (Auto) 10.6 H Eos % (Auto) 1.6 Baso % (Auto) 0.4 Neut # (Auto) 9.5 H Lymph # (Auto) 1.1 Lee # (Auto) 1.3 H Eos # (Auto) 0.2 Baso # (Auto) 0.0 WBC Differential . Differential Comment Auto diff final Microbiology 02/18/18 17:02 Blood - Peripheral Aerobic Blood Culture - Preliminary No growth in 1 day 02/18/18 17:02 Blood - Peripheral Anaerobic Blood Culture - Preliminary No growth in 1 day 02/18/18 12:20 Blood - Peripheral Aerobic Blood Culture - Preliminary No growth in 1 day 02/18/18 12:20 Blood - Peripheral Anaerobic Blood Culture - Preliminary No growth in 1 day 02/16/18 21:32 Blood - Peripheral Aerobic Blood Culture - Preliminary No growth in 3 days 02/16/18 21:32 Blood - Peripheral Anaerobic Blood Culture - Final Staphylococcus aureus 02/16/18 21:22 Blood - Peripheral Aerobic Blood Culture - Final Staphylococcus aureus 02/16/18 21:22 Blood - Peripheral Anaerobic Blood Culture - Final Staphylococcus aureus Assessment and Plan - Plan 52-year-old man with Febrile illness/staph aureus bacteremia/pneumonia -CT scan does indicate posterior lower lung griffin with increased density related to consolidation or atelectasis -Patient continued on antibiotics for community acquired pneumonia with Rocephin and Zithromax -Duo nebs as needed -Incentive spirometry -ALISHA performed today February 19, 2018, report pending Left upper lung mass, concerning for neoplasm -Oncology evaluated patient and recommending repeat CT scan of the chest in 3 weeks, if mass persists would recommend biopsy. -CT the abdomen was performed which did not indicate any signs of malignancy or metastasis -Continue pain control DVT prevention -Subcutaneous heparin
--- NOTE | 2018-02-19 11:58 | P.PNID ---
Subjective Remarks: Patient is laying in bed and has no complaints currently. He underwent ALISHA this morning. No report of valve vegetation on the ALISHA report. He denies chills. Repeat blood cultures have no growth so far. Afebrile. Reports that the left shoulder pain is a little better. This is a 52-year-old white male who presented to the emergency department on 02/16/2018 complaining of left arm pain and also pain in the left chest. The patient has had history of left rotator cuff repair and also neck surgery. He reported that over the few days prior to being admitted to the hospital, he was participating in a lot of activities and he was running around and then he became very tired. His sister noticed that he was having shortness of breath and the pain in his left arm was becoming worse. He also noted having pain at the left lateral chest wall in addition. He reports that he has new dentures, which he started wearing recently. He states that there was a problem with the denture and it was causing an abrasion at the anterior lower gum. On presentation, he had a temperature of 101.9 and a white blood cell count of 18. The patient states that he had chills after he came to the hospital, but he does not recall having chills before that. The patient denies IV drug use. Past Medical History: History of neck surgery. History of shoulder surgery. Left rotator cuff repair. Allergies/Adverse Reactions: Allergies No Known Allergies Allergy (Verified 02/16/18 20:23) Objective Vital Signs 02/18/18 12:00 02/18/18 16:00 02/19/18 00:00 Temperature 99.8 F H 99.9 F H 98.8 F Pulse Rate 85 86 75 Respiratory Rate 20 20 20 Blood Pressure 116/59 L 116/78 124/75 Pulse Oximetry 98 95 95 02/19/18 04:00 02/19/18 08:00 Temperature 98.3 F 98.9 F Pulse Rate 80 72 Respiratory Rate 20 18 Blood Pressure 122/80 108/68 Pulse Oximetry 98 97 Intake & Output 02/18/18 02/19/18 02/19/18 18:59 06:59 18:59 Intake Total 1301 / 1301 410 / 410 Balance 1301 / 1301 410 / 410 Weight 69.8 kg Intake: IV 350 / 350 Azithromycin Inj 500 MG In NS 250 / 250 Inj 250 ML @ 250 mls/hr IV.SIG Q24H [facility] Rx#:[id number] Rocephin Inj 2,000 MG In NS Inj 100 / 100 100 ML @ 200 mls/hr IV.SIG Q24H [facility] Rx#:[id number] Oral 1301 / 1301 60 / 60 Other: # Voids 9 Date of Last Bowel Movement 02/16/18 # Bowel Movements 0 02/18/18 17:02 Blood - Peripheral Aerobic Blood Culture - Preliminary No growth in 1 day 02/18/18 17:02 Blood - Peripheral Anaerobic Blood Culture - Preliminary No growth in 1 day 02/18/18 12:20 Blood - Peripheral Aerobic Blood Culture - Preliminary No growth in 1 day 02/18/18 12:20 Blood - Peripheral Anaerobic Blood Culture - Preliminary No growth in 1 day 02/16/18 21:32 Blood - Peripheral Aerobic Blood Culture - Preliminary No growth in 3 days 02/16/18 21:32 Blood - Peripheral Anaerobic Blood Culture - Final Staphylococcus aureus 02/16/18 21:22 Blood - Peripheral Aerobic Blood Culture - Final Staphylococcus aureus 02/16/18 21:22 Blood - Peripheral Anaerobic Blood Culture - Final Staphylococcus aureus 02/16/18 21:44 Nasal Wash Influenza Types A,B Antigen - Final Negative for FLU A and B antigen Infection due to influenza A or B cannot be ruled out since the antigen present in the sample may be below the detection limit of the test. Lab - Hematology Results 02/18/18 02/19/18 04:55 06:40 CBC w Diff Auto diff final WBC 16.0 H 12.2 H RBC 4.23 L 4.24 L Hgb 13.8 14.0 Hct 40.7 41.1 MCV 96.3 96.9 MCH 32.7 32.9 MCHC 34.0 34.0 RDW 12.3 13.4 Plt Count 177 226 MPV 8.7 8.9 Neut % (Auto) 78.7 H 78.4 H Lymph % (Auto) 9.0 9.0 [place] % (Auto) 10.7 H 10.6 H Eos % (Auto) 1.2 1.6 Baso % (Auto) 0.4 0.4 Neut # (Auto) 12.6 H 9.5 H Lymph # (Auto) 1.4 1.1 [place] # (Auto) 1.7 H 1.3 H Eos # (Auto) 0.2 0.2 Baso # (Auto) 0.1 0.0 WBC Differential . . Differential Comment . Auto diff final Lab - Chemistry Results 02/18/18 04:55 Sodium 138 Potassium 3.9 Chloride 101 Carbon Dioxide 29.6 Anion Gap 7 BUN 11 Creatinine 0.93 Estimated GFR 85 L Random Glucose 101 Calcium 8.3 L Imaging: ITS Impressions Chest X-Ray 02/16/18 21:30 CONCLUSION: No acute cardiopulmonary process. Shoulder X-Ray 02/16/18 23:11 CONCLUSION: No acute abnormality is seen. Cervical Spine CT 02/17/18 01:02 CONCLUSION: 1. Status post corpectomy at C6 with strut seen extending from the inferior aspect of C5 to superior aspect of C7. 2. Anterior cervical fusion plate extending from C4 through C7. 3. Uncovertebral hypertrophy and neural foraminal narrowing at the C4-C5 through C6-C7 levels as described above. Most prominently affected level is the C5-C6 level. Chest CTA 02/17/18 01:02 CONCLUSION: 1. No pulmonary embolus. 2. 2.9 cm subpleural mass seen at the anterior superior left upper lobe. Neoplasm cannot be excluded. This area could be further evaluated noninvasively with PET FDG study. 3. Diffuse emphysematous change. 4. Suspected atelectasis at the posterior lung lower lungs bilaterally. Abdomen/Pelvis CT 02/18/18 04:43 CONCLUSION: 1. No CT evidence for abdominal/pelvic mass or metastatic disease. 2. Ancillary findings, as above. Physical Exam: PHYSICAL EXAMINATION: GENERAL: No acute distress. HEENT: Head is atraumatic. Extraocular movements are grossly intact. Pupils reactive to light. No icterus. Oropharynx: Moist mucosa. No lesions. NECK: Semi stiff left lateral neck movement, but otherwise supple. LUNGS: Markedly decreased breath sounds. HEART: Regular, S1, S2, without murmurs, rubs or gallops. ABDOMEN: Bowel sounds present. Soft, nontender. No palpable mass. EXTREMITIES: The left posterior shoulder is less tender and less swelling at the scapular region posteriorly. No clubbing cyanosis or edema. SKIN: No rash. NEUROLOGIC: No gross focal findings. PSYCHIATRIC: Calm and cooperative. Assessment and Plan - Plan IMPRESSION: 1. Sepsis. The patient presented with fever and leukocytosis and has positive blood cultures with Staphylococcus aureus. 2. Left shoulder pain and swelling on the left scapular region. This possibly could be due to inflammation. 3. Lung mass noted on CTA of the chest. This is noted to be subpleural mass at the anterior superior left upper lobe and could be related to the pain that the patient is experiencing at the left upper extremity. RECOMMENDATIONS: 1. Continue ceftriaxone. The staph is sensitive. 2. Continue azithromycin. 3. Monitor the repeat blood cultures. If the ALISHA does not show vegetation, I recommend giving patient a 2-week course of ceftriaxone for the bacteremia and sepsis. The etiology of the Staphylococcus aureus at this point is unclear.
[2018-02-20] MEDS: Heparin - SQ 10,000 UNITS/ML Vial SQ SCH ×3 (04:33→20:00)
[2018-02-20] MEDS: Azithromycin Inj 500 MG in Sodium Chlor 0.9% Inj 250 ML IV.SIG SCH (04:33)
[2018-02-20] MEDS: Senna/Docusate Sodium 8.6/50 MG Tablet PO SCH ×2 (08:24→20:00)
--- NOTE | 2018-02-20 11:59 | P.PN ---
Subjective Interval history: Follow-up lung mass/pneumonia/rule out endocarditis February 19, 2018-patient seen and examined, he had ALISHA this morning. Denies any significant shortness of breath. Currently afebrile February 20, 2018-patient seen and examined, only complaint of left shoulder pain otherwise no fever, shortness of breath or chest pain. ALISHA yesterday was negative. Physical Exam Vital signs: Vital Signs 02/19/18 12:00 02/19/18 16:00 02/19/18 20:00 Temperature 98.9 F 98.6 F 99 F Pulse Rate 70 68 84 Respiratory Rate 14 14 17 Blood Pressure 119/73 105/61 147/77 H Pulse Oximetry 96 96 97 02/19/18 21:45 02/19/18 23:56 02/20/18 04:32 Temperature 98.2 F 98.0 F Pulse Rate 69 64 Respiratory Rate 18 18 18 Blood Pressure 121/73 111/63 Pulse Oximetry 98 95 02/20/18 08:00 Temperature 98.3 F Pulse Rate 70 Respiratory Rate 20 Blood Pressure 120/75 Pulse Oximetry 96 Intake & Output 02/19/18 02/20/18 02/20/18 18:59 06:59 18:59 Intake Total 1200 / 1200 Balance 1200 / 1200 Weight 70.6 kg Intake: IV 350 / 350 Azithromycin Inj 500 MG In NS 250 / 250 Inj 250 ML @ 250 mls/hr IV.SIG Q24H [facility] Rx#:[id number] Rocephin Inj 2,000 MG In NS Inj 100 / 100 100 ML @ 200 mls/hr IV.SIG Q24H [facility] Rx#:[id number] Oral 850 / 850 Other: # Voids 4 Date of Last Bowel Movement 02/16/18 02/19/18 02/19/18 Narrative: GENERAL: Well-developed well-nourished. In no acute distress. NECK: No carotid bruits. No JVD. CARDIOVASCULAR: Regular rate and rhythm. No murmur appreciated. RESPIRATORY: No accessory muscle use. Clear to auscultation. Breath sounds equal bilaterally. MUSCULOSKELETAL: No clubbing or cyanosis. No edema. NEUROLOGICAL: Awake and alert. Normal speech. Results - Labs CBC & Chem 7: 02/19/18 06:40 02/18/18 04:55 Microbiology 02/18/18 17:02 Blood - Peripheral Aerobic Blood Culture - Preliminary No growth in 2 days 02/18/18 17:02 Blood - Peripheral Anaerobic Blood Culture - Preliminary No growth in 2 days 02/18/18 12:20 Blood - Peripheral Aerobic Blood Culture - Preliminary gram positive cocci 02/18/18 12:20 Blood - Peripheral Anaerobic Blood Culture - Preliminary No growth in 2 days 02/16/18 21:32 Blood - Peripheral Aerobic Blood Culture - Preliminary No growth in 4 days 02/16/18 21:32 Blood - Peripheral Anaerobic Blood Culture - Final Staphylococcus aureus Assessment and Plan - Plan 52-year-old man with Sepsis/staph aureus bacteremia/pneumonia -CT scan does indicate posterior lower lung griffin with increased density related to consolidation or atelectasis -Patient continued on antibiotics for community acquired pneumonia with Rocephin and Zithromax. Will need Rocephin IV times 2 weeks -Duo nebs as needed -ALISHA performed February 19, 2018, report negative for endocarditis Left upper lung mass, concerning for neoplasm -Oncology evaluated patient and recommending repeat CT scan of the chest in 3 weeks, if mass persists would recommend biopsy. -CT the abdomen was performed which did not indicate any signs of malignancy or metastasis -Continue pain control DVT prevention -Subcutaneous heparin
[2018-02-21] MEDS: Heparin - SQ 10,000 UNITS/ML Vial SQ SCH ×4 (04:15→21:35)
[2018-02-21] MEDS: Azithromycin Inj 500 MG in Sodium Chlor 0.9% Inj 250 ML IV.SIG SCH (04:54)
[2018-02-21] MEDS: Senna/Docusate Sodium 8.6/50 MG Tablet PO SCH ×2 (08:26→21:22)
--- NOTE | 2018-02-21 12:19 | P.PN ---
Subjective Interval history: Follow-up lung mass/pneumonia/rule out endocarditis February 19, 2018-patient seen and examined, he had ALISHA this morning. Denies any significant shortness of breath. Currently afebrile February 20, 2018-patient seen and examined, only complaint of left shoulder pain otherwise no fever, shortness of breath or chest pain. ALISHA yesterday was negative. February 21, 2018-patient seen and examined; repeat Blood culture on 02/18 with positive 1#4; no shortness of breath Physical Exam Vital signs: Vital Signs 02/20/18 12:00 02/20/18 16:00 02/20/18 20:00 Temperature 98 F 97.9 F 99.2 F Pulse Rate 71 73 66 Respiratory Rate 20 20 18 Blood Pressure 104/67 132/67 115/67 Pulse Oximetry 96 98 98 02/20/18 22:04 02/21/18 00:00 02/21/18 04:00 Temperature 99.3 F 98.1 F Pulse Rate 60 61 Respiratory Rate 18 18 18 Blood Pressure 105/65 119/68 Pulse Oximetry 98 97 02/21/18 04:59 02/21/18 08:00 Temperature 97.3 F L Pulse Rate 65 Respiratory Rate 18 20 Blood Pressure 129/85 Pulse Oximetry 100 Intake & Output 02/20/18 02/21/18 02/21/18 18:59 06:59 18:59 Intake Total 1760 / 1760 350 / 350 Output Total 4 / 4 Balance 1756 / 1756 350 / 350 Weight 70.6 kg Intake: IV 350 / 350 Azithromycin Inj 500 MG In NS 250 / 250 Inj 250 ML @ 250 mls/hr IV.SIG Q24H [facility] Rx#:[id number] Rocephin Inj 2,000 MG In NS Inj 100 / 100 100 ML @ 200 mls/hr IV.SIG Q24H [facility] Rx#:[id number] Oral 1760 / 1760 Output: Urine 4 / 4 Other: # Voids 4 3 Date of Last Bowel Movement 02/19/18 02/20/18 02/20/18 # Bowel Movements 1 Narrative: GENERAL: Well-developed well-nourished. In no acute distress. NECK: No carotid bruits. No JVD. CARDIOVASCULAR: Regular rate and rhythm. No murmur appreciated. RESPIRATORY: No accessory muscle use. Clear to auscultation. Breath sounds equal bilaterally. MUSCULOSKELETAL: No clubbing or cyanosis. No edema. NEUROLOGICAL: Awake and alert. Normal speech. Results - Labs CBC & Chem 7: 02/19/18 06:40 02/18/18 04:55 Microbiology 02/18/18 17:02 Blood - Peripheral Aerobic Blood Culture - Preliminary No growth in 3 days 02/18/18 17:02 Blood - Peripheral Anaerobic Blood Culture - Preliminary No growth in 3 days 02/18/18 12:20 Blood - Peripheral Aerobic Blood Culture - Preliminary gram positive cocci 02/18/18 12:20 Blood - Peripheral Anaerobic Blood Culture - Preliminary No growth in 3 days 02/16/18 21:32 Blood - Peripheral Aerobic Blood Culture - Final No growth in 5 days 02/16/18 21:32 Blood - Peripheral Anaerobic Blood Culture - Final Staphylococcus aureus Assessment and Plan - Plan 52-year-old man with Sepsis/staph aureus bacteremia/pneumonia -CT scan does indicate posterior lower lung griffin with increased density related to consolidation or atelectasis -Patient continued on antibiotics for community acquired pneumonia with Rocephin and Zithromax. Will need Rocephin IV times 2 weeks -Duo nebs as needed -ALISHA performed February 19, 2018, report negative for endocarditis -Repeat BC +1#4 on 02/18; Will repeat today 02/21 Left upper lung mass, concerning for neoplasm -Oncology evaluated patient and recommending repeat CT scan of the chest in 3 weeks, if mass persists would recommend biopsy. -CT the abdomen was performed which did not indicate any signs of malignancy or metastasis -Continue pain control DVT prevention -Subcutaneous heparin
[2018-02-22] MEDS: Azithromycin Inj 500 MG in Sodium Chlor 0.9% Inj 250 ML IV.SIG SCH (05:22)
[2018-02-22] MEDS: Heparin - SQ 10,000 UNITS/ML Vial SQ SCH ×3 (05:22→22:15)
--- NOTE | 2018-02-22 09:35 | P.PN ---
Subjective Interval history: Follow-up lung mass/pneumonia/rule out endocarditis February 19, 2018-patient seen and examined, he had ALISHA this morning. Denies any significant shortness of breath. Currently afebrile February 20, 2018-patient seen and examined, only complaint of left shoulder pain otherwise no fever, shortness of breath or chest pain. ALISHA yesterday was negative. February 21, 2018-patient seen and examined; repeat Blood culture on 02/18 with positive 1#4; no shortness of breath February 22, 2018-patient seen and examined, no complaint this a.m. Afebrile. by the bedside Physical Exam Vital signs: Vital Signs 02/21/18 12:00 02/21/18 16:00 02/21/18 20:00 Temperature 98.1 F 97.6 F 98.4 F Pulse Rate 61 65 83 Respiratory Rate 20 20 18 Blood Pressure 120/71 104/71 111/66 Pulse Oximetry 100 99 99 02/22/18 00:00 02/22/18 04:00 02/22/18 08:00 Temperature 98.1 F 98.5 F 98.2 F Pulse Rate 66 70 67 Respiratory Rate 18 18 18 Blood Pressure 121/62 118/70 152/90 H Pulse Oximetry 96 97 99 Intake & Output 02/21/18 02/22/18 02/22/18 18:59 06:59 18:59 Intake Total 1200 / 1200 Balance 1200 / 1200 Weight 70.7 kg Intake: Oral 1200 / 1200 Other: # Voids 3 3 Date of Last Bowel Movement 02/20/18 # Bowel Movements 2 Narrative: GENERAL: Well-developed well-nourished. In no acute distress. NECK: No carotid bruits. No JVD. CARDIOVASCULAR: Regular rate and rhythm. No murmur appreciated. RESPIRATORY: No accessory muscle use. Clear to auscultation. Breath sounds equal bilaterally. MUSCULOSKELETAL: No clubbing or cyanosis. No edema. NEUROLOGICAL: Awake and alert. Normal speech. Results - Labs CBC & Chem 7: 02/19/18 06:40 02/18/18 04:55 Microbiology 02/18/18 12:20 Blood - Peripheral Aerobic Blood Culture - Final Staphylococcus aureus 02/18/18 12:20 Blood - Peripheral Anaerobic Blood Culture - Preliminary No growth in 3 days 02/18/18 17:02 Blood - Peripheral Aerobic Blood Culture - Preliminary No growth in 3 days 02/18/18 17:02 Blood - Peripheral Anaerobic Blood Culture - Preliminary No growth in 3 days 02/16/18 21:32 Blood - Peripheral Aerobic Blood Culture - Final No growth in 5 days 02/16/18 21:32 Blood - Peripheral Anaerobic Blood Culture - Final Staphylococcus aureus Assessment and Plan - Plan 52-year-old man with Sepsis/staph aureus bacteremia/pneumonia -CT scan does indicate posterior lower lung griffin with increased density related to consolidation or atelectasis -Patient continued on antibiotics for community acquired pneumonia with Rocephin and Zithromax. Will likely need Rocephin IV times 2 weeks -Duo nebs as needed -ALISHA performed February 19, 2018, report negative for endocarditis -Repeat BC +1#4 on 02/18; Repeat Blood culture on 02/21-NTD Left upper lung mass, concerning for neoplasm -Oncology evaluated patient and recommending repeat CT scan of the chest in 3 weeks, if mass persists would recommend biopsy. -CT the abdomen was performed which did not indicate any signs of malignancy or metastasis -Continue pain control DVT prevention -Subcutaneous heparin
--- NOTE | 2018-02-22 12:00 | P.PNONC ---
Subjective Interval history: Afebrile. Patient ambulating in room. He is awaiting repeat CT chest. He reports pain with breathing, relieved by medication. Reports swelling to right elbow, which began approximately 1 week ago after using that elbow to get up in bed. Objective Vital Signs/Intake & Output: Vital Signs 02/21/18 12:00 02/21/18 16:00 02/21/18 20:00 Temperature 98.1 F 97.6 F 98.4 F Pulse Rate 61 65 83 Respiratory Rate 20 20 18 Blood Pressure 120/71 104/71 111/66 Pulse Oximetry 100 99 99 02/22/18 00:00 02/22/18 04:00 02/22/18 08:00 Temperature 98.1 F 98.5 F 98.2 F Pulse Rate 66 70 67 Respiratory Rate 18 18 18 Blood Pressure 121/62 118/70 152/90 H Pulse Oximetry 96 97 99 Intake & Output 02/21/18 02/22/18 02/22/18 18:59 06:59 18:59 Intake Total 1200 / 1200 Balance 1200 / 1200 Weight 70.7 kg Intake: Oral 1200 / 1200 Other: # Voids 3 3 Date of Last Bowel Movement 02/20/18 02/21/18 # Bowel Movements 2 Result Diagrams: 02/19/18 06:40 02/18/18 04:55 Culture Results: Microbiology 02/21/18 14:20 Aerobic Blood Culture - Preliminary Blood - Peripheral No growth in 1 day Anaerobic Blood Culture - Preliminary No growth in 1 day 02/21/18 14:20 Aerobic Blood Culture - Preliminary Blood - Peripheral No growth in 1 day Anaerobic Blood Culture - Preliminary No growth in 1 day 02/18/18 17:02 Aerobic Blood Culture - Preliminary Blood - Peripheral No growth in 4 days Anaerobic Blood Culture - Preliminary No growth in 4 days 02/18/18 12:20 Aerobic Blood Culture - Final Blood - Peripheral Staphylococcus aureus Anaerobic Blood Culture - Preliminary No growth in 4 days 02/16/18 21:32 Aerobic Blood Culture - Final Blood - Peripheral No growth in 5 days Anaerobic Blood Culture - Final Staphylococcus aureus Medications: Active Medications Generic Name Dose Route Start Last Admin Trade Name Freq PRN Reason Stop Dose Admin Acetaminophen 650 mg 02/17/18 04:27 02/17/18 19:59 Tylenol PO 650 mg Q4H PRN Administration Temp > 100.4 Hydrocodone Bitart/Acetaminophen 1 tab 02/18/18 10:55 02/22/18 05:21 [place] 10/325 PO 1 tab Q6H PRN Administration PAIN SCALE 6 TO 10 Heparin Sodium (Porcine) 5,000 units 02/17/18 05:00 02/22/18 05:22 Heparin Inj SQ 5,000 units Q8H EDY Administration Sodium Chloride 1,000 mls @ 0 mls/hr 02/16/18 22:00 02/16/18 23:32 Ns Inj IV.SIG Infused BOLUS EDY Infusion Wide Open Azithromycin 500 mg/ Sodium 250 mls @ 250 mls/hr 02/18/18 04:00 02/22/18 05: 22 Chloride IV.SIG 250 mls/hr Q24H EDY Administration Ceftriaxone Sodium 2,000 mg/ 100 mls @ 200 mls/hr 02/18/18 04:00 02/22/18 05: 22 Sodium Chloride IV.SIG 100 mls/hr Q24H EDY Administration Morphine Sulfate 4 mg 02/17/18 04:26 02/18/18 09:34 Morphine Inj IV.PUSH 4 mg Q4H PRN Administration BREAKTHROUGH PAIN Ondansetron HCl 4 mg 02/17/18 04:27 02/20/18 02:09 Zofran Inj IV.PUSH 4 mg Q6H PRN Administration NAUSEA OR VOMITING Senna/Docusate Sodium 1 tab 02/17/18 09:00 02/21/18 21:22 Judy-Colace PO Not Given BID EDY Objective Remarks: GENERAL: Well-nourished, well-developed male patient, in no acute distress. SKIN: Warm and dry. HEAD: Normocephalic. EYES: No scleral icterus. No injection or drainage. NECK: Supple, trachea midline. CARDIOVASCULAR: Regular rate and rhythm without murmurs. RESPIRATORY: Breath sounds equal bilaterally. No accessory muscle use. GASTROINTESTINAL: Abdomen soft, non-tender, nondistended. EXTREMITIES: No cyanosis, or edema. + Bursitis right elbow. MUSCULOSKELETAL: Adequate muscle tone. NEUROLOGICAL: No obvious focal deficit. Awake, alert, and oriented x3. PSYCHIATRIC: Appropriate mood and affect; insight and judgment normal. Assessment/Plan (1) Pneumonia Code(s): J18.9 - Pneumonia, unspecified organism Status: Acute (2) Lung mass Code(s): R91.8 - Other nonspecific abnormal finding of lung field Status: Acute - Plan 1. Left lung mass. He presented with pleuritic chest pain and fever. He also has leukocytosis. A CT of the chest did not show any pulmonary embolism; however, there is a 2.9 cm subpleural mass at the anterior-superior left upper lobe. Neoplasm cannot be ruled out, especially in a patient with more than [id number] smoking history; however, the clinical presentation appears more like a pneumonia. CT of the chest did not show significant adenopathy. February 18, 2018. Await CT of the abdomen pelvis. Fever has trended down. February 19, 2018. CT of the abdomen pelvis did not show any mass or adenopathy.Recommend repeating CT of the chest in about 3 weeks, and if the lung mass persists, I would recommend a biopsy. The patient gets his care at the [facility], and he can follow up with the [facility] physician after discharge for followup. February 22, 2018. Repeat CT chest. 2. Pneumonia. He is still febrile and has leukocytosis. Blood culture grew Gram-positive cocci. He will continue antibiotic. February 19, 2018. Blood culture grew Staphylococcus aureus in multiple bottles. 2D echocardiogram did not show clear vegetation. No vegetations seen on ALISHA. February 22, 2018. Continues on antibiotics per infectious disease. 2. Chronic obstructive pulmonary disease. CT showed emphysematous changes. The patient has more than 75-[id number]-pbaf smoking history. 3. Tobacco dependence. PLAN: 1. Await repeat CT chest. 2. Continue antibiotic for treatment of pneumonia per primary team and ID. 3. Continue supportive care. - Attending Statement The exam, history, and the medical decision-making described in the above note were completed with the assistance of the mid-level provider. I reviewed and agree with the findings presented. I attest that I had a [id number] encounter with the patient on the same day, and personally performed and documented my assessment and findings in the medical record.Pt still has left chest pleuritic pain. No SOB or cough. Now afebrile. BCX grew staph aureus. Given persistent chest pain, will repeat CT chest and consider biopsy of the lung mass does not improve with antibiotics.
--- NOTE | 2018-02-22 13:19 | CT ---
EXAM DATE: 02/22/2018 12:45 PM EDT AGE/SEX: 52 years / Male INDICATIONS: Left shoulder pain, abnormal chest x-ray. Subpleural mass seen on prior CT angiogram. CLINICAL DATA: This is the patient's initial encounter. Patient reports that signs and symptoms have been present for 1 day and indicates a pain score of 5/10. MEDICAL/SURGICAL HISTORY: None. None. RADIATION DOSE: 6.33 CTDI (mGy) COMPARISON: [facility], CTA PULMONARY W CONTRAST W 3D, 02/17/2018. . TECHNIQUE: Multiple contiguous axial images were obtained through the chest without contrast. Image s were obtained in suspended respiration using multiple row detector helical technique. Using automa grzegorz exposure control and adjustment of the mA and/or kV according to patient size, radiation dose was kept as low as reasonably achievable to obtain optimal diagnostic quality images. DICOM format imag e data is available electronically for review and comparison. FINDINGS: Lungs: The lungs are symmetrically hyperinflated with underlying emphysema. Again noted is a low-den sity mass along the anterior left upper lobe which measures up to 3.3 x 3 cm in diameter. This measur es approximately 14 Hounsfield units in density. There is a small noncalcified pulmonary nodule in th e medial right lung apex measuring approximately 7 to 8 mm in diameter. There is mild scarring in the left lung base. Mediastinum: There is good visualization of the great vessels of the middle mediastinum. No evidenc e of mediastinal or hilar adenopathy/mass. Pleurae: There is a minimal left pleural effusion. Axillae: Unremarkable. Bony Structures: Unremarkable. Miscellaneous: The examination was extended to include the upper abdomen, and both adrenal glands ar e normal in size and configuration. CONCLUSION: 1. Low-density left upper lobe pleural-based mass again identified which is nonspecific. 2. 7 to 8 mm noncalcified pulmonary nodule in the right lung apex. 3. Small left effusion. 4. Underlying emphysema. Electronically signed by: Pual Benites MD 02/22/2018 1:17 PM EDT
[2018-02-22] MEDS: Senna/Docusate Sodium 8.6/50 MG Tablet PO SCH ×2 (13:32→22:17)
--- NOTE | 2018-02-22 16:10 | P.PNID ---
Subjective Remarks: Patient is laying in bed and has no complaints currently. Ports some pain in the left upper chest with certain movements. He denies chills. Repeat blood cultures on 02/18 has staph aureus in 1 bottle. Previous blood culture had staph aureus. Afebrile. This is a 52-year-old white male who presented to the emergency department on 02/16/2018 complaining of left arm pain and also pain in the left chest. The patient has had history of left rotator cuff repair and also neck surgery. He reported that over the few days prior to being admitted to the hospital, he was participating in a lot of activities and he was running around and then he became very tired. His sister noticed that he was having shortness of breath and the pain in his left arm was becoming worse. He also noted having pain at the left lateral chest wall in addition. He reports that he has new dentures, which he started wearing recently. He states that there was a problem with the denture and it was causing an abrasion at the anterior lower gum. On presentation, he had a temperature of 101.9 and a white blood cell count of 18. The patient states that he had chills after he came to the hospital, but he does not recall having chills before that. The patient denies IV drug use. Past Medical History: History of neck surgery. History of shoulder surgery. Left rotator cuff repair. Allergies/Adverse Reactions: Allergies No Known Allergies Allergy (Verified 02/16/18 20:23) Objective Vital Signs 02/21/18 20:00 02/22/18 00:00 02/22/18 04:00 Temperature 98.4 F 98.1 F 98.5 F Pulse Rate 83 66 70 Respiratory Rate 18 18 18 Blood Pressure 111/66 121/62 118/70 Pulse Oximetry 99 96 97 02/22/18 08:00 Temperature 98.2 F Pulse Rate 67 Respiratory Rate 18 Blood Pressure 152/90 H Pulse Oximetry 99 Intake & Output 02/21/18 02/22/18 02/22/18 18:59 06:59 18:59 Intake Total 1200 / 1200 Balance 1200 / 1200 Weight 70.7 kg Intake: Oral 1200 / 1200 Other: # Voids 3 3 Date of Last Bowel Movement 02/20/18 02/21/18 # Bowel Movements 2 02/21/18 14:20 Blood - Peripheral Aerobic Blood Culture - Preliminary No growth in 1 day 02/21/18 14:20 Blood - Peripheral Anaerobic Blood Culture - Preliminary No growth in 1 day 02/21/18 14:20 Blood - Peripheral Aerobic Blood Culture - Preliminary No growth in 1 day 02/21/18 14:20 Blood - Peripheral Anaerobic Blood Culture - Preliminary No growth in 1 day 02/18/18 17:02 Blood - Peripheral Aerobic Blood Culture - Preliminary No growth in 4 days 02/18/18 17:02 Blood - Peripheral Anaerobic Blood Culture - Preliminary No growth in 4 days 02/18/18 12:20 Blood - Peripheral Aerobic Blood Culture - Final Staphylococcus aureus 02/18/18 12:20 Blood - Peripheral Anaerobic Blood Culture - Preliminary No growth in 4 days 02/16/18 21:32 Blood - Peripheral Aerobic Blood Culture - Final No growth in 5 days 02/16/18 21:32 Blood - Peripheral Anaerobic Blood Culture - Final Staphylococcus aureus Imaging: ITS Impressions Chest X-Ray 02/16/18 21:30 CONCLUSION: No acute cardiopulmonary process. Shoulder X-Ray 02/16/18 23:11 CONCLUSION: No acute abnormality is seen. Cervical Spine CT 02/17/18 01:02 CONCLUSION: 1. Status post corpectomy at C6 with strut seen extending from the inferior aspect of C5 to superior aspect of C7. 2. Anterior cervical fusion plate extending from C4 through C7. 3. Uncovertebral hypertrophy and neural foraminal narrowing at the C4-C5 through C6-C7 levels as described above. Most prominently affected level is the C5-C6 level. Chest CTA 02/17/18 01:02 CONCLUSION: 1. No pulmonary embolus. 2. 2.9 cm subpleural mass seen at the anterior superior left upper lobe. Neoplasm cannot be excluded. This area could be further evaluated noninvasively with PET FDG study. 3. Diffuse emphysematous change. 4. Suspected atelectasis at the posterior lung lower lungs bilaterally. Abdomen/Pelvis CT 02/18/18 04:43 CONCLUSION: 1. No CT evidence for abdominal/pelvic mass or metastatic disease. 2. Ancillary findings, as above. Chest CT 02/22/18 08:01 CONCLUSION: 1. Low-density left upper lobe pleural-based mass again identified which is nonspecific. 2. 7 to 8 mm noncalcified pulmonary nodule in the right lung apex. 3. Small left effusion. 4. Underlying emphysema. Physical Exam: PHYSICAL EXAMINATION: GENERAL: No acute distress. HEENT: Head is atraumatic. Extraocular movements are grossly intact. Pupils reactive to light. No icterus. Oropharynx: Moist mucosa. No lesions. NECK: Supple without adenopathy LUNGS: Markedly decreased breath sounds. HEART: Regular, S1, S2, without murmurs, rubs or gallops. ABDOMEN: Bowel sounds present. Soft, nontender. No palpable mass. EXTREMITIES: Mild tenderness at the left anterior upper chest wall. No clubbing cyanosis or edema. SKIN: No rash. NEUROLOGIC: No gross focal findings. PSYCHIATRIC: Calm and cooperative. Assessment and Plan - Plan IMPRESSION: 1. Sepsis. The patient presented with fever and leukocytosis and has positive blood cultures with Staphylococcus aureus. The etiology of the Staphylococcus aureus is unclear. 2. Left shoulder pain. 3. Left lung mass noted on CTA of the chest. This is noted to be subpleural mass at the anterior superior left upper lobe and could be related to the pain that the patient is experiencing at the left upper extremity. RECOMMENDATIONS: 1. Continue ceftriaxone. 2. Stop azithromycin. 3. Monitor the repeat blood cultures. 4. Consider biopsy of the left lung lesion.
[2018-02-23] MEDS: Azithromycin Inj 500 MG in Sodium Chlor 0.9% Inj 250 ML IV.SIG SCH (03:57)
[2018-02-23] MEDS: Heparin - SQ 10,000 UNITS/ML Vial SQ SCH ×3 (04:56→21:41)
[2018-02-23 08:58] LABS: Baso # (Auto) 0.1 th/mm3 (0.0-0.2); Eos # (Auto) 0.9 th/mm3 (0.0-0.4); Eos % (Auto) 7.9 % (0.0-4.0); Hemoglobin 13.6 gm/dL (13.0-17.0); Lymph # (Auto) 2.3 th/mm3 (1.0-4.8); Lymph % (Auto) 21.1 % (9.0-44.0); Mean Corpuscular Hemoglobin 33.2 pg (27.0-34.0); Mean Corpuscular Volume 97.6 fL (80.0-100.0); Mean Platelet Volume 7.9 fL (7.0-11.0); Mono # (Auto) 0.9 th/mm3 (0.0-0.9); Mono % (Auto) 8.1 % (0.0-8.0); Neut # (Auto) 6.8 th/mm3 (1.8-7.7); Neut % (Auto) 61.9 % (16.0-70.0); Platelet Count 446 th/mm3 (150-450); Red Cell Distribution Width 13.7 % (11.6-17.2)
[2018-02-23 09:28] LABS: Albumin 2.6 g/dL (3.4-5.0); Anion Gap 5 meq/L (5-15); Aspartate Aminotransferase 36 U/L (15-37); Blood Urea Nitrogen 11 mg/dL (7-18); Calcium 8.7 mg/dL (8.5-10.1); Carbon Dioxide 31.5 meq/L (21.0-32.0); Chloride 105 meq/L (98-107); Glomerular Filtration Rate 87 mL/min (>89); Glucose,Random 85 mg/dL (74-106); Potassium 4.8 meq/L (3.5-5.1); Sodium 141 meq/L (136-145)
[2018-02-23 09:32] LABS: Alanine Aminotransferase 47 U/L (12-78); Alkaline Phosphatase 91 U/L (45-117)
--- NOTE | 2018-02-23 11:18 | P.PN ---
Subjective Interval history: Follow-up lung mass/pneumonia/rule out endocarditis February 23, 2018-patient seen and examined, still complaining of left shoulder pain. CT chest report noted. Patient currently afebrile. Physical Exam Vital signs: Vital Signs 02/22/18 16:00 02/22/18 20:00 02/23/18 00:00 Temperature 98.6 F 98.6 F 97.9 F Pulse Rate 68 74 68 Respiratory Rate 18 18 18 Blood Pressure 117/77 137/92 H 122/78 Pulse Oximetry 97 98 98 02/23/18 04:00 02/23/18 08:00 02/23/18 08:45 Temperature 98.2 F 98.0 F Pulse Rate 63 63 Respiratory Rate 18 14 17 Blood Pressure 121/74 128/78 Pulse Oximetry 97 98 Intake & Output 02/22/18 02/23/18 02/23/18 18:59 06:59 18:59 Intake Total 900 / 900 Balance 900 / 900 Weight 70.7 kg Intake: IV 700 / 700 Azithromycin Inj 500 MG In NS 500 / 500 Inj 250 ML @ 250 mls/hr IV.SIG Q24H EDY Rx#:[id number] Rocephin Inj 2,000 MG In NS Inj 200 / 200 100 ML @ 200 mls/hr IV.SIG Q24H EDY Rx#:[id number] Oral 200 / 200 Other: # Voids 6 3 Date of Last Bowel Movement 02/21/18 02/21/18 # Bowel Movements 1 Narrative: GENERAL: Well-developed well-nourished. In no acute distress. NECK: No carotid bruits. No JVD. CARDIOVASCULAR: Regular rate and rhythm. No murmur appreciated. RESPIRATORY: No accessory muscle use. Clear to auscultation. Breath sounds equal bilaterally. MUSCULOSKELETAL: No clubbing or cyanosis. No edema. NEUROLOGICAL: Awake and alert. Normal speech. Results - Labs CBC & Chem 7: 02/23/18 07:33 02/23/18 07:33 Laboratory Results - last 24 hr 02/23/18 02/23/18 07:33 07:33 WBC 11.0 RBC 4.10 L Hgb 13.6 Hct 40.0 MCV 97.6 MCH 33.2 MCHC 34.0 RDW 13.7 Plt Count 446 D MPV 7.9 Neut % (Auto) 61.9 Lymph % (Auto) 21.1 [place] % (Auto) 8.1 H Eos % (Auto) 7.9 H Baso % (Auto) 1.0 Neut # (Auto) 6.8 Lymph # (Auto) 2.3 [place] # (Auto) 0.9 Eos # (Auto) 0.9 H Baso # (Auto) 0.1 WBC Differential . Differential Comment Auto diff final Sodium 141 Potassium 4.8 Chloride 105 Carbon Dioxide 31.5 Anion Gap 5 BUN 11 Creatinine 0.91 Estimated GFR 87 L Random Glucose 85 Calcium 8.7 Total Bilirubin 0.2 AST 36 ALT 47 Alkaline Phosphatase 91 Total Protein 7.0 Albumin 2.6 L Microbiology 02/21/18 14:20 Blood - Peripheral Aerobic Blood Culture - Preliminary No growth in 2 days 02/21/18 14:20 Blood - Peripheral Anaerobic Blood Culture - Preliminary No growth in 2 days 02/21/18 14:20 Blood - Peripheral Aerobic Blood Culture - Preliminary No growth in 2 days 02/21/18 14:20 Blood - Peripheral Anaerobic Blood Culture - Preliminary No growth in 2 days 02/18/18 17:02 Blood - Peripheral Aerobic Blood Culture - Final No growth in 5 days 02/18/18 17:02 Blood - Peripheral Anaerobic Blood Culture - Final No growth in 5 days 02/18/18 12:20 Blood - Peripheral Aerobic Blood Culture - Final Staphylococcus aureus 02/18/18 12:20 Blood - Peripheral Anaerobic Blood Culture - Final No growth in 5 days - Imaging Impressions Chest CT 02/22/18 08:01 CONCLUSION: 1. Low-density left upper lobe pleural-based mass again identified which is nonspecific. 2. 7 to 8 mm noncalcified pulmonary nodule in the right lung apex. 3. Small left effusion. 4. Underlying emphysema. Assessment and Plan - Plan 52-year-old man with Sepsis/staph aureus bacteremia/pneumonia -CT scan does indicate posterior lower lung griffin with increased density related to consolidation or atelectasis -Patient continued on antibiotics for community acquired pneumonia with Rocephin. Will likely need Rocephin IV times 2 weeks total -Duo nebs as needed -ALISHA performed February 19, 2018, report negative for endocarditis -Repeat BC +1#4 on 02/18; Repeat Blood culture on 02/21-NTD Left upper lung mass, concerning for neoplasm -Oncology ff -CT chest February 22, 2018 report noted with finding of 1. Low-density left upper lobe pleural-based mass again identified which is nonspecific. 2. 7 to 8 mm noncalcified pulmonary nodule in the right lung apex. Consider CT guided biopsy for further assessment -Continue pain control DVT prevention -Subcutaneous heparin
[2018-02-23] MEDS: Senna/Docusate Sodium 8.6/50 MG Tablet PO SCH ×2 (12:59→21:41)
--- NOTE | 2018-02-23 13:01 | P.PNONC ---
Subjective Interval history: Pt lying in bed, in no acute distress. Reports left upper chest pleuritic pain and generalized fatigue today. Discussed biopsy, pt agreeable to proceed. Objective Vital Signs/Intake & Output: Vital Signs 02/22/18 16:00 02/22/18 20:00 02/23/18 00:00 Temperature 98.6 F 98.6 F 97.9 F Pulse Rate 68 74 68 Respiratory Rate 18 18 18 Blood Pressure 117/77 137/92 H 122/78 Pulse Oximetry 97 98 98 02/23/18 04:00 02/23/18 08:00 02/23/18 08:45 Temperature 98.2 F 98.0 F Pulse Rate 63 63 Respiratory Rate 18 14 17 Blood Pressure 121/74 128/78 Pulse Oximetry 97 98 Intake & Output 02/22/18 02/23/18 02/23/18 18:59 06:59 18:59 Intake Total 900 / 900 Balance 900 / 900 Weight 70.7 kg Intake: IV 700 / 700 Azithromycin Inj 500 MG In NS 500 / 500 Inj 250 ML @ 250 mls/hr IV.SIG Q24H EDY Rx#:[id number] Rocephin Inj 2,000 MG In NS Inj 200 / 200 100 ML @ 200 mls/hr IV.SIG Q24H EDY Rx#:[id number] Oral 200 / 200 Other: # Voids 6 3 Date of Last Bowel Movement 02/21/18 02/21/18 # Bowel Movements 1 Result Diagrams: 02/23/18 07:33 02/23/18 07:33 Laboratory Results: Laboratory Results - last 24 hr 02/23/18 02/23/18 07:33 07:33 WBC 11.0 RBC 4.10 L Hgb 13.6 Hct 40.0 MCV 97.6 MCH 33.2 MCHC 34.0 RDW 13.7 Plt Count 446 D MPV 7.9 Neut % (Auto) 61.9 Lymph % (Auto) 21.1 [place] % (Auto) 8.1 H Eos % (Auto) 7.9 H Baso % (Auto) 1.0 Neut # (Auto) 6.8 Lymph # (Auto) 2.3 [place] # (Auto) 0.9 Eos # (Auto) 0.9 H Baso # (Auto) 0.1 WBC Differential . Differential Comment Auto diff final Sodium 141 Potassium 4.8 Chloride 105 Carbon Dioxide 31.5 Anion Gap 5 BUN 11 Creatinine 0.91 Estimated GFR 87 L Random Glucose 85 Calcium 8.7 Total Bilirubin 0.2 AST 36 ALT 47 Alkaline Phosphatase 91 Total Protein 7.0 Albumin 2.6 L Culture Results: Microbiology 02/21/18 14:20 Aerobic Blood Culture - Preliminary Blood - Peripheral No growth in 2 days Anaerobic Blood Culture - Preliminary No growth in 2 days 02/21/18 14:20 Aerobic Blood Culture - Preliminary Blood - Peripheral No growth in 2 days Anaerobic Blood Culture - Preliminary No growth in 2 days 02/18/18 17:02 Aerobic Blood Culture - Final Blood - Peripheral No growth in 5 days Anaerobic Blood Culture - Final No growth in 5 days 02/18/18 12:20 Aerobic Blood Culture - Final Blood - Peripheral Staphylococcus aureus Anaerobic Blood Culture - Final No growth in 5 days 02/16/18 21:32 Aerobic Blood Culture - Final Blood - Peripheral No growth in 5 days Anaerobic Blood Culture - Final Staphylococcus aureus Imaging Studies: Impressions Chest CT 02/22/18 08:01 CONCLUSION: 1. Low-density left upper lobe pleural-based mass again identified which is nonspecific. 2. 7 to 8 mm noncalcified pulmonary nodule in the right lung apex. 3. Small left effusion. 4. Underlying emphysema. Medications: Active Medications Generic Name Dose Route Start Last Admin Trade Name Freq PRN Reason Stop Dose Admin Acetaminophen 650 mg 02/17/18 04:27 02/17/18 19:59 Tylenol PO 650 mg Q4H PRN Administration Temp > 100.4 Hydrocodone Bitart/Acetaminophen 1 tab 02/18/18 10:55 02/23/18 03:57 [place] 10/325 PO 1 tab Q6H PRN Administration PAIN SCALE 6 TO 10 Heparin Sodium (Porcine) 5,000 units 02/17/18 05:00 02/23/18 04:56 Heparin Inj SQ 5,000 units Q8H EDY Administration Sodium Chloride 1,000 mls @ 0 mls/hr 02/16/18 22:00 02/16/18 23:32 Ns Inj IV.SIG Infused BOLUS EDY Infusion Wide Open Azithromycin 500 mg/ Sodium 250 mls @ 250 mls/hr 02/18/18 04:00 02/23/18 04: 57 Chloride IV.SIG Infused Q24H EDY Infusion Ceftriaxone Sodium 2,000 mg/ 100 mls @ 200 mls/hr 02/18/18 04:00 02/23/18 04: 30 Sodium Chloride IV.SIG Infused Q24H EDY Infusion Morphine Sulfate 4 mg 02/17/18 04:26 02/18/18 09:34 Morphine Inj IV.PUSH 4 mg Q4H PRN Administration BREAKTHROUGH PAIN Ondansetron HCl 4 mg 02/17/18 04:27 02/20/18 02:09 Zofran Inj IV.PUSH 4 mg Q6H PRN Administration NAUSEA OR VOMITING Senna/Docusate Sodium 1 tab 02/17/18 09:00 02/22/18 22:17 Judy-Colace PO Not Given BID EDY Objective Remarks: GENERAL: Well-nourished, well-developed male patient, in no acute distress. SKIN: Warm and dry. HEAD: Normocephalic. EYES: No scleral icterus. No injection or drainage. NECK: Supple, trachea midline. CARDIOVASCULAR: Regular rate and rhythm without murmurs. RESPIRATORY: Breath sounds equal bilaterally. Non-labored at rest. GASTROINTESTINAL: Abdomen soft, non-tender, nondistended. EXTREMITIES: No cyanosis, or edema. + swelling right elbow. MUSCULOSKELETAL: Adequate muscle tone. NEUROLOGICAL: No obvious focal deficit. Awake, alert, and oriented x3. PSYCHIATRIC: Appropriate mood and affect; insight and judgment normal. Assessment/Plan (1) Pneumonia Code(s): J18.9 - Pneumonia, unspecified organism Status: Acute (2) Lung mass Code(s): R91.8 - Other nonspecific abnormal finding of lung field Status: Acute - Plan 1. Left lung mass. Repeat CT chest showed low-density mass along the anterior left upper lobe which appears to have increased in size. Discussed at tumor boards, plan for CT guided biopsy to evaluate for infectious process vs. malignancy. 2. Pneumonia. Afebrile. Blood culture grew Staphylococcus aureus in multiple bottles. 2D echocardiogram did not show clear vegetation. No vegetations seen on ALISHA. Continue antibiotics per ID. 3. Continue supportive care. - Attending Statement The exam, history, and the medical decision-making described in the above note were completed with the assistance of the mid-level provider. I reviewed and agree with the findings presented. I attest that I had a [id number] encounter with the patient on the same day, and personally performed and documented my assessment and findings in the medical record. Patient remains afebrile. He still has left chest pain although it is slightly better. He has repeat CT of the chest which I personally reviewed. The left upper lobe mass seems bigger compared to a week ago. This possibly could be an infectious process but cannot totally rule out an aggressive tumor. I have discussed his case with radiologist at the tumor board. Will consult radiology for biopsy and send sample for culture as well.
[2018-02-24] MEDS: Azithromycin Inj 500 MG in Sodium Chlor 0.9% Inj 250 ML IV.SIG SCH (03:32)
[2018-02-24] MEDS: Senna/Docusate Sodium 8.6/50 MG Tablet PO SCH ×2 (08:40→21:36)
--- NOTE | 2018-02-24 10:24 | P.PNONC ---
Subjective Interval history: Patient resting comfortably in bed, no acute distress. He is currently n.p.o. for lung biopsy today. He continues to have left upper chest/shoulder pleuritic pain. He has been ambulating the halls this a.m. He does not feel as fatigued as yesterday. Objective Vital Signs/Intake & Output: Vital Signs 02/23/18 12:00 02/23/18 16:00 02/23/18 20:00 Temperature 98.2 F 98.1 F 98.2 F Pulse Rate 67 66 68 Respiratory Rate 18 14 18 Blood Pressure 121/74 116/72 133/76 Pulse Oximetry 99 98 99 02/24/18 00:00 02/24/18 04:00 02/24/18 08:00 Temperature 97.9 F 97.9 F 97.9 F Pulse Rate 62 67 60 Respiratory Rate 18 18 16 Blood Pressure 119/56 L 111/69 125/72 Pulse Oximetry 95 97 97 Intake & Output 02/23/18 02/24/18 02/24/18 18:59 06:59 18:59 Intake Total 200 / 200 350 / 350 Output Total 4 / 4 Balance 196 / 196 350 / 350 Weight 70.7 kg Intake: IV 350 / 350 Azithromycin Inj 500 MG In NS 250 / 250 Inj 250 ML @ 250 mls/hr IV.SIG Q24H EDY Rx#:[id number] Rocephin Inj 2,000 MG In NS Inj 100 / 100 100 ML @ 200 mls/hr IV.SIG Q24H EDY Rx#:[id number] Oral 200 / 200 Output: Urine 4 / 4 Other: # Voids 3 3 Date of Last Bowel Movement 02/21/18 02/21/18 02/23/18 # Bowel Movements 1 Result Diagrams: 02/23/18 07:33 02/23/18 07:33 Culture Results: Microbiology 02/21/18 14:20 Aerobic Blood Culture - Preliminary Blood - Peripheral No growth in 2 days Anaerobic Blood Culture - Preliminary No growth in 2 days 02/21/18 14:20 Aerobic Blood Culture - Preliminary Blood - Peripheral No growth in 2 days Anaerobic Blood Culture - Preliminary No growth in 2 days 02/18/18 17:02 Aerobic Blood Culture - Final Blood - Peripheral No growth in 5 days Anaerobic Blood Culture - Final No growth in 5 days 02/18/18 12:20 Aerobic Blood Culture - Final Blood - Peripheral Staphylococcus aureus Anaerobic Blood Culture - Final No growth in 5 days 02/16/18 21:32 Aerobic Blood Culture - Final Blood - Peripheral No growth in 5 days Anaerobic Blood Culture - Final Staphylococcus aureus Medications: Active Medications Generic Name Dose Route Start Last Admin Trade Name Freq PRN Reason Stop Dose Admin Acetaminophen 650 mg 02/17/18 04:27 02/17/18 19:59 Tylenol PO 650 mg Q4H PRN Administration Temp > 100.4 Hydrocodone Bitart/Acetaminophen 1 tab 02/18/18 10:55 02/24/18 03:31 [place] 10/325 PO 1 tab Q6H PRN Administration PAIN SCALE 6 TO 10 Heparin Sodium (Porcine) 5,000 units 02/17/18 05:00 02/23/18 21:41 Heparin Inj SQ Not Given Q8H EDY Sodium Chloride 1,000 mls @ 0 mls/hr 02/16/18 22:00 02/16/18 23:32 Ns Inj IV.SIG Infused BOLUS EDY Infusion Wide Open Azithromycin 500 mg/ Sodium 250 mls @ 250 mls/hr 02/18/18 04:00 02/24/18 04: 39 Chloride IV.SIG Infused Q24H EDY Infusion Ceftriaxone Sodium 2,000 mg/ 100 mls @ 200 mls/hr 02/18/18 04:00 02/24/18 05: 54 Sodium Chloride IV.SIG Infused Q24H EDY Infusion Morphine Sulfate 4 mg 02/17/18 04:26 02/18/18 09:34 Morphine Inj IV.PUSH 4 mg Q4H PRN Administration BREAKTHROUGH PAIN Ondansetron HCl 4 mg 02/17/18 04:27 02/20/18 02:09 Zofran Inj IV.PUSH 4 mg Q6H PRN Administration NAUSEA OR VOMITING Senna/Docusate Sodium 1 tab 02/17/18 09:00 02/24/18 08:40 Judy-Colace PO Not Given BID EDY Objective Remarks: GENERAL: Well-nourished, well-developed male patient, in no acute distress. SKIN: Warm and dry. HEAD: Normocephalic. EYES: No scleral icterus. No injection or drainage. NECK: Supple, trachea midline. CARDIOVASCULAR: +S1/S2 without murmurs. RESPIRATORY: Breath sounds clear, equal bilaterally. Non-labored at rest. GASTROINTESTINAL: Abdomen soft, non-tender, nondistended. EXTREMITIES: No cyanosis, or edema. MUSCULOSKELETAL: Adequate muscle tone. NEUROLOGICAL: No obvious focal deficit. Awake, alert, and oriented x3. PSYCHIATRIC: Appropriate mood and affect; insight and judgment normal. Assessment/Plan (1) Pneumonia Code(s): J18.9 - Pneumonia, unspecified organism Status: Acute (2) Lung mass Code(s): R91.8 - Other nonspecific abnormal finding of lung field Status: Acute - Plan 1. Left lung mass. Repeat CT chest showed low-density mass along the anterior left upper lobe which appears to have increased in size. Pending CT guided biopsy to evaluate for infectious process vs. malignancy today. 2. Pneumonia. Afebrile. Blood culture grew Staphylococcus aureus in multiple bottles, repeat cultures no growth times 2 days. No vegetations seen on ALISHA. Continue antibiotics per infectious disease. 3. Continue supportive care. - Attending Statement The exam, history, and the medical decision-making described in the above note were completed with the assistance of the mid-level provider. I reviewed and agree with the findings presented. I attest that I had a [id number] encounter with the patient on the same day, and personally performed and documented my assessment and findings in the medical record. Patient is feeling little better. Patient is feeling better. He still has left chest pleuritic pain but improved. He remains afebrile. Leukocytosis is resolving. CT scan 2 days ago showed a mass had increased in size. Radiology has been consulted for biopsy. We will send for culture as well.
--- NOTE | 2018-02-24 11:32 | P.PN ---
Subjective Interval history: Follow-up lung mass/pneumonia/rule out endocarditis February 23, 2018-patient seen and examined, still complaining of left shoulder pain. CT chest report noted. Patient currently afebrile. February 24, 2018-patient seen and examined, currently n.p.o. pending CT-guided biopsy of left lung mass. No acute event overnight. Physical Exam Vital signs: Vital Signs 02/23/18 12:00 02/23/18 16:00 02/23/18 20:00 Temperature 98.2 F 98.1 F 98.2 F Pulse Rate 67 66 68 Respiratory Rate 18 14 18 Blood Pressure 121/74 116/72 133/76 Pulse Oximetry 99 98 99 02/24/18 00:00 02/24/18 04:00 02/24/18 08:00 Temperature 97.9 F 97.9 F 97.9 F Pulse Rate 62 67 60 Respiratory Rate 18 18 16 Blood Pressure 119/56 L 111/69 125/72 Pulse Oximetry 95 97 97 Intake & Output 02/23/18 02/24/18 02/24/18 18:59 06:59 18:59 Intake Total 200 / 200 350 / 350 Output Total 4 / 4 Balance 196 / 196 350 / 350 Weight 70.7 kg Intake: IV 350 / 350 Azithromycin Inj 500 MG In NS 250 / 250 Inj 250 ML @ 250 mls/hr IV.SIG Q24H EDY Rx#:[id number] Rocephin Inj 2,000 MG In NS Inj 100 / 100 100 ML @ 200 mls/hr IV.SIG Q24H EDY Rx#:[id number] Oral 200 / 200 Output: Urine 4 / 4 Other: # Voids 3 3 Date of Last Bowel Movement 02/21/18 02/21/18 02/23/18 # Bowel Movements 1 Narrative: GENERAL: Well-developed well-nourished. In no acute distress. NECK: No carotid bruits. No JVD. CARDIOVASCULAR: Regular rate and rhythm. No murmur appreciated. RESPIRATORY: No accessory muscle use. Clear to auscultation. Breath sounds equal bilaterally. MUSCULOSKELETAL: No clubbing or cyanosis. No edema. NEUROLOGICAL: Awake and alert. Normal speech. Results - Labs CBC & Chem 7: 02/23/18 07:33 02/23/18 07:33 Microbiology 02/21/18 14:20 Blood - Peripheral Aerobic Blood Culture - Preliminary No growth in 3 days 02/21/18 14:20 Blood - Peripheral Anaerobic Blood Culture - Preliminary No growth in 3 days 02/21/18 14:20 Blood - Peripheral Aerobic Blood Culture - Preliminary No growth in 3 days 02/21/18 14:20 Blood - Peripheral Anaerobic Blood Culture - Preliminary No growth in 3 days 02/18/18 17:02 Blood - Peripheral Aerobic Blood Culture - Final No growth in 5 days 02/18/18 17:02 Blood - Peripheral Anaerobic Blood Culture - Final No growth in 5 days 02/18/18 12:20 Blood - Peripheral Aerobic Blood Culture - Final Staphylococcus aureus 02/18/18 12:20 Blood - Peripheral Anaerobic Blood Culture - Final No growth in 5 days Assessment and Plan - Plan 52-year-old man with Sepsis/staph aureus bacteremia/pneumonia -CT scan does indicate posterior lower lung griffin with increased density related to consolidation or atelectasis -Patient continued on antibiotics for community acquired pneumonia with Rocephin. Will likely need Rocephin IV times 2 weeks total -Duo nebs as needed -ALISHA performed February 19, 2018, report negative for endocarditis -Repeat BC +1#4 on 02/18; Repeat Blood culture on 02/21-NTD Left upper lung mass, concerning for neoplasm -Oncology ff -CT chest February 22, 2018 report noted with finding of 1. Low-density left upper lobe pleural-based mass again identified which is nonspecific. 2. 7 to 8 mm noncalcified pulmonary nodule in the right lung apex. Plan for CT guided biopsy of left lung mass today February 24, 2018 -Continue pain control DVT prevention -Subcutaneous heparin
[2018-02-24] MEDS ORDERED: fentaNYL Citrate Inj 250 MCG/5 ML Ampul ONE (12:11)
--- NOTE | 2018-02-24 12:42 | P.RAD ---
Radiology Note 52 Y/O with an anterior left upper lobe mass abutting the Pleura. Pt. was evaluated prior to biopsy. Mass appears significantly smaller and appears to involve the sternoclavicular joint. The patient had positive blood cultures as such this is felt to likely be infection. No biopsy was preformed. Pt will need follow up to ensure this resolves
--- NOTE | 2018-02-24 14:49 | CT ---
EXAM DATE: 02/24/2018 1:27 PM EDT AGE/SEX: 52 years / Male INDICATIONS: Left lung abnormality. Evaluate for malignancy versus inflammatory process. CLINICAL DATA: This is the patient's initial encounter. Patient reports that signs and symptoms have been present for 1 day and indicates a pain score of 0/10. MEDICAL/SURGICAL HISTORY: None. None. RADIATION DOSE: 10.42 CTDI (mGy) COMPARISON: [facility] [place], CT CHEST W/O CONTRAST, 02/22/2018. . TECHNIQUE: Multiple contiguous axial images were obtained through the chest without contrast. Image s were obtained in suspended respiration using multiple row detector helical technique. Using automa grzegorz exposure control and adjustment of the mA and/or kV according to patient size, radiation dose was kept as low as reasonably achievable to obtain optimal diagnostic quality images. DICOM format imag e data is available electronically for review and comparison. FINDINGS: The patient arrived for CT-guided biopsy and sampling of the mass in the anterior aspect of the left upper lobe. Preprocedure CT imaging was performed. This demonstrated significant reduction in size of the mass. T his area now measures only 1.7 x 2.2 cm. It appears to extend up and possibly involve the junction of the head of the first rib and the sternum. Due to the decrease in size of this this is felt to be li socorro infectious or inflammatory. This patient has positive blood cultures and as such, no biopsy or a spiration of this was performed. CONCLUSION: 1. The mass in the anterior aspect of the left chest is significantly reduced in size compared to beni wyman's exam of 02/22/2018 as such, no aspiration or biopsy was performed. Electronically signed by: Vasiliy Gamboa MD 02/24/2018 2:47 PM EDT
--- NOTE | 2018-02-24 16:27 | P.PNID ---
Subjective Remarks: Patient went to have a CT-guided biopsy of the mass in the left chest. The biopsy was not performed because it is felt that the mass is smaller than previous Radiology reports that it very likely is due to infection and hence biopsy was not done. Radiology notes that the mass involves the sternoclavicular joint. Patient still has some pain in the left upper chest and also the left shoulder. He denies chills. He walks around the hallways and voices no complaints. Afebrile. White blood cell count has improved. Latest blood cultures on 02/21 has no growth. Repeat blood cultures on 02/18 has staph aureus in 1 bottle. Previous blood culture had staph aureus. This is a 52-year-old white male who presented to the emergency department on 02/16/2018 complaining of left arm pain and also pain in the left chest. The patient has had history of left rotator cuff repair and also neck surgery. He reported that over the few days prior to being admitted to the hospital, he was participating in a lot of activities and he was running around and then he became very tired. His sister noticed that he was having shortness of breath and the pain in his left arm was becoming worse. He also noted having pain at the left lateral chest wall in addition. He reports that he has new dentures, which he started wearing recently. He states that there was a problem with the denture and it was causing an abrasion at the anterior lower gum. On presentation, he had a temperature of 101.9 and a white blood cell count of 18. The patient states that he had chills after he came to the hospital, but he does not recall having chills before that. The patient denies IV drug use. Past Medical History: History of neck surgery. History of shoulder surgery. Left rotator cuff repair. Allergies/Adverse Reactions: Allergies No Known Allergies Allergy (Verified 02/16/18 20:23) Objective Vital Signs 02/23/18 20:00 02/24/18 00:00 02/24/18 04:00 Temperature 98.2 F 97.9 F 97.9 F Pulse Rate 68 62 67 Respiratory Rate 18 18 18 Blood Pressure 133/76 119/56 L 111/69 Pulse Oximetry 99 95 97 02/24/18 08:00 02/24/18 12:45 02/24/18 13:00 Temperature 97.9 F 97.6 F Pulse Rate 60 66 66 Respiratory Rate 16 18 16 Blood Pressure 125/72 122/75 121/76 Pulse Oximetry 97 95 96 02/24/18 13:30 Temperature Pulse Rate 63 Respiratory Rate 18 Blood Pressure 112/78 Pulse Oximetry 98 Intake & Output 02/23/18 02/24/18 02/24/18 18:59 06:59 18:59 Intake Total 200 / 200 350 / 350 Output Total 4 / 4 Balance 196 / 196 350 / 350 Weight 70.7 kg Intake: IV 350 / 350 Azithromycin Inj 500 MG In NS 250 / 250 Inj 250 ML @ 250 mls/hr IV.SIG Q24H EDY Rx#:[id number] Rocephin Inj 2,000 MG In NS Inj 100 / 100 100 ML @ 200 mls/hr IV.SIG Q24H EDY Rx#:[id number] Oral 200 / 200 Output: Urine 4 / Other: # Voids 3 3 Date of Last Bowel Movement 02/21/18 02/21/18 02/23/18 # Bowel Movements 1 02/21/18 14:20 Blood - Peripheral Aerobic Blood Culture - Preliminary No growth in 3 days 02/21/18 14:20 Blood - Peripheral Anaerobic Blood Culture - Preliminary No growth in 3 days 02/21/18 14:20 Blood - Peripheral Aerobic Blood Culture - Preliminary No growth in 3 days 02/21/18 14:20 Blood - Peripheral Anaerobic Blood Culture - Preliminary No growth in 3 days 02/18/18 17:02 Blood - Peripheral Aerobic Blood Culture - Final No growth in 5 days 02/18/18 17:02 Blood - Peripheral Anaerobic Blood Culture - Final No growth in 5 days 02/18/18 12:20 Blood - Peripheral Aerobic Blood Culture - Final Staphylococcus aureus 02/18/18 12:20 Blood - Peripheral Anaerobic Blood Culture - Final No growth in 5 days Lab - Hematology Results 02/23/18 07:33 WBC 11.0 RBC 4.10 L Hgb 13.6 Hct 40.0 MCV 97.6 MCH 33.2 MCHC 34.0 RDW 13.7 Plt Count 446 D MPV 7.9 Neut % (Auto) 61.9 Lymph % (Auto) 21.1 [place] % (Auto) 8.1 H Eos % (Auto) 7.9 H Baso % (Auto) 1.0 Neut # (Auto) 6.8 Lymph # (Auto) 2.3 [place] # (Auto) 0.9 Eos # (Auto) 0.9 H Baso # (Auto) 0.1 WBC Differential . Differential Comment Auto diff final Lab - Chemistry Results 02/23/18 07:33 Sodium 141 Potassium 4.8 Chloride 105 Carbon Dioxide 31.5 Anion Gap 5 BUN 11 Creatinine 0.91 Estimated GFR 87 L Random Glucose 85 Calcium 8.7 Total Bilirubin 0.2 AST 36 ALT 47 Alkaline Phosphatase 91 Total Protein 7.0 Albumin 2.6 L Imaging: ITS Impressions Chest X-Ray 02/16/18 21:30 CONCLUSION: No acute cardiopulmonary process. Shoulder X-Ray 02/16/18 23:11 CONCLUSION: No acute abnormality is seen. Cervical Spine CT 02/17/18 01:02 CONCLUSION: 1. Status post corpectomy at C6 with strut seen extending from the inferior aspect of C5 to superior aspect of C7. 2. Anterior cervical fusion plate extending from C4 through C7. 3. Uncovertebral hypertrophy and neural foraminal narrowing at the C4-C5 through C6-C7 levels as described above. Most prominently affected level is the C5-C6 level. Chest CTA 02/17/18 01:02 CONCLUSION: 1. No pulmonary embolus. 2. 2.9 cm subpleural mass seen at the anterior superior left upper lobe. Neoplasm cannot be excluded. This area could be further evaluated noninvasively with PET FDG study. 3. Diffuse emphysematous change. 4. Suspected atelectasis at the posterior lung lower lungs bilaterally. Abdomen/Pelvis CT 02/18/18 04:43 CONCLUSION: 1. No CT evidence for abdominal/pelvic mass or metastatic disease. 2. Ancillary findings, as above. Chest CT 02/24/18 00:00 CONCLUSION: 1. The mass in the anterior aspect of the left chest is significantly reduced in size compared to patient's exam of 02/22/2018 as such, no aspiration or biopsy was performed. Physical Exam: PHYSICAL EXAMINATION: GENERAL: No acute distress. HEENT: Head is atraumatic. Extraocular movements are grossly intact. Pupils reactive to light. No icterus. Oropharynx: Moist mucosa. No lesions. NECK: Supple without adenopathy LUNGS: Decreased clear breath sounds. HEART: Regular, S1, S2, without murmurs, rubs or gallops. ABDOMEN: Bowel sounds present. Soft, nontender. No palpable mass. EXTREMITIES: Mild tenderness at the left anterior upper chest wall. Patient has difficulty raising the left arm above the head. He notes pain in the left shoulder on raising the arm. No clubbing cyanosis or edema. SKIN: No rash. NEUROLOGIC: No gross focal findings. PSYCHIATRIC: Calm and cooperative. Assessment and Plan - Plan IMPRESSION: 1. Sepsis. The patient presented with fever and leukocytosis and has positive blood cultures with Staphylococcus aureus. The etiology of the Staphylococcus aureus is unclear. 2. Left shoulder pain. 3. Left lung mass noted on CTA of the chest. The mass has decreased in size and is felt to be due to infection. Radiology notes involvement of the sternoclavicular joint. White blood cell count has improved. Repeated blood culture is negative. I think this reflects an abscess which is being treated and appears to be responding to antibiotics. Since he has been on antibiotics it is probably best not to get aspirate sample at this point. RECOMMENDATIONS: 1. Continue ceftriaxone for another couple of weeks. 2. Stop azithromycin. 3. Is a PICC line and discharge the patient on the IV ceftriaxone. 4. Follow-up with the [place] [facility] in 1 week. 5. Case management made aware to arrange for the IV antibiotics. Okay to discharge when antibiotics arrangements are made.
--- NOTE | 2018-02-24 16:29 | P.DCO ---
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 [] May leave port accessed during therapy. [] May leave peripheral site accessed for duration of therapy. [x] If patient has SOB or respiratory distress, check oxygen saturation. If less than 90% or clinical signs of respiratory distress, administer oxygen at 2 L/min. via nasal cannula and notify physician. [x] Anaphylaxis/Reaction orders: * Stop infusion. * Keep IV line open with saline flush. * Notify physician. * Monitor vital signs every 15 minutes until symptoms resolve. * Check Oxygen saturation; Oxygen at 2 L/min. via nasal cannula if less than 90% or clinical signs of respiratory distress. * Administer diphenhydramine (Benadryl) 25 mg IV STAT, (unless patient has received as pre-med). May repeat once, if necessary. * Solu-Cortef 250 mg IVP over 30-60 seconds, use 100 mg vials for each dissolution. * Epinephrine (1mg/1 ml) 0.3 mg subcutaneously or IVP now with any signs of respiratory distress. * Check with physician for new additional pre-med orders if patient is re- challenged or re-treated. [x] May remove PICC line when treatment complete, after confirming with Physician. [x] If the patient is admitted to the hospital, the ED, or transferred via [facility] , complete transfer form including medication reconciliation order sheet. - Patient Information Allergies No Known Allergies Allergy (Verified 02/16/18 20:23)
[2018-02-24] MEDS: Heparin - SQ 10,000 UNITS/ML Vial SQ SCH (21:35)
[2018-02-25] MEDS: Heparin - SQ 10,000 UNITS/ML Vial SQ SCH ×2 (04:37→13:18)
[2018-02-25] MEDS: Azithromycin Inj 500 MG in Sodium Chlor 0.9% Inj 250 ML IV.SIG SCH (05:03)
[2018-02-25] MEDS: Senna/Docusate Sodium 8.6/50 MG Tablet PO SCH (08:30)
--- NOTE | 2018-02-25 10:30 | P.DCO ---
- Diagnosis (1) Pneumonia Status: Acute (2) Bacteremia Status: Acute - Home Health Nursing Order: IV medication administration - Case Management Consult No - Certification I have seen patient Helio Meyer on 02/25/18. My clinical findings support the need for the requested home health care services because: Injectable medication education/administration I certify that my clinical findings support that this patient is homebound because: Poor cardiac reserve
--- NOTE | 2018-02-25 11:11 | P.PN ---
Subjective Interval history: Follow-up lung mass/pneumonia/rule out endocarditis February 23, 2018-patient seen and examined, still complaining of left shoulder pain. CT chest report noted. Patient currently afebrile. February 24, 2018-patient seen and examined, currently n.p.o. pending CT-guided biopsy of left lung mass. No acute event overnight. February 25, 2018-patient seen and examined, no biopsy of left lung mass performed yesterday as it appears that he has shrink in size. Patient still complaining of left shoulder pain otherwise afebrile. Looking forward to being discharged. Physical Exam Vital signs: Vital Signs 02/24/18 12:45 02/24/18 13:00 02/24/18 13:30 Temperature 97.6 F Pulse Rate 66 66 63 Respiratory Rate 18 16 18 Blood Pressure 122/75 121/76 112/78 Pulse Oximetry 95 96 98 02/24/18 16:00 02/24/18 20:00 02/25/18 00:00 Temperature 97.4 F L 98.5 F 98.3 F Pulse Rate 64 76 67 Respiratory Rate 18 18 18 Blood Pressure 140/75 153/70 H 115/63 Pulse Oximetry 98 98 95 02/25/18 04:00 02/25/18 08:00 Temperature 98.2 F 98.7 F Pulse Rate 63 74 Respiratory Rate 18 22 Blood Pressure 114/66 137/72 Pulse Oximetry 96 100 Intake & Output 02/24/18 02/25/18 02/25/18 18:59 06:59 18:59 Intake Total 1200 / 1200 350 / 350 Balance 1200 / 1200 350 / 350 Weight 70.7 kg 68.7 kg Intake: IV 350 / 350 Azithromycin Inj 500 MG In NS 250 / 250 Inj 250 ML @ 250 mls/hr IV.SIG Q24H EDY Rx#:[id number] Rocephin Inj 2,000 MG In NS Inj 100 / 100 100 ML @ 200 mls/hr IV.SIG Q24H EDY Rx#:[id number] Oral 1200 / 1200 Other: # Voids 4 3 Date of Last Bowel Movement 02/23/18 02/23/18 Narrative: GENERAL: Well-developed well-nourished. In no acute distress. NECK: No carotid bruits. No JVD. CARDIOVASCULAR: Regular rate and rhythm. No murmur appreciated. RESPIRATORY: No accessory muscle use. Clear to auscultation. Breath sounds equal bilaterally. MUSCULOSKELETAL: No clubbing or cyanosis. No edema. NEUROLOGICAL: Awake and alert. Normal speech. Results - Labs CBC & Chem 7: 02/23/18 07:33 02/23/18 07:33 Laboratory Results - last 24 hr 02/25/18 04:30 ESR 54 H Microbiology 02/21/18 14:20 Blood - Peripheral Aerobic Blood Culture - Preliminary No growth in 4 days 02/21/18 14:20 Blood - Peripheral Anaerobic Blood Culture - Preliminary No growth in 4 days 02/21/18 14:20 Blood - Peripheral Aerobic Blood Culture - Preliminary No growth in 4 days 02/21/18 14:20 Blood - Peripheral Anaerobic Blood Culture - Preliminary No growth in 4 days - Imaging Impressions Chest CT 02/24/18 00:00 CONCLUSION: 1. The mass in the anterior aspect of the left chest is significantly reduced in size compared to patient's exam of 02/22/2018 as such, no aspiration or biopsy was performed. - Procedures None Assessment and Plan - Assessment (1) Pneumonia Code(s): J18.9 - Pneumonia, unspecified organism Status: Acute (2) Bacteremia Code(s): R78.81 - Bacteremia Status: Acute - Plan 52-year-old man with Sepsis/staph aureus bacteremia/pneumonia -CT scan does indicate posterior lower lung griffin with increased density related to consolidation or atelectasis -Patient continued on antibiotics for community acquired pneumonia with Rocephin. Will likely need Rocephin IV times couple more weeks -Duo nebs as needed -ALISHA performed February 19, 2018, report negative for endocarditis -Repeat BC +1#4 on 02/18; Repeat Blood culture on 02/21-NTD Left upper lung mass, concerning for neoplasm, however this appeared to be more likely abscess -Oncology ff -CT chest February 22, 2018 report noted with finding of 1. Low-density left upper lobe pleural-based mass again identified which is nonspecific. 2. 7 to 8 mm noncalcified pulmonary nodule in the right lung apex. CT-guided biopsy planned for February 24, 2018 was cancer because the mass has decreased in size and is felt to be due to infection. Radiology notes involvement of the sternoclavicular joint. White blood cell count has improved. Repeated blood culture is negative. -Continue with IV antibiotic including Rocephin per ID. -Continue pain control DVT prevention -Subcutaneous heparin
--- NOTE | 2018-02-25 13:54 | P.PNONC ---
Subjective Interval history: Afebrile, patient ambulating in the room. He expresses extreme frustration with not being discharged yet. He has no other complaints at this time. Patient is aware that [facility] in 3- 6 weeks. Objective Vital Signs/Intake & Output: Vital Signs 02/24/18 16:00 02/24/18 20:00 02/25/18 00:00 Temperature 97.4 F L 98.5 F 98.3 F Pulse Rate 64 76 67 Respiratory Rate 18 18 18 Blood Pressure 140/75 153/70 H 115/63 Pulse Oximetry 98 98 95 02/25/18 04:00 02/25/18 08:00 Temperature 98.2 F 98.7 F Pulse Rate 63 74 Respiratory Rate 18 22 Blood Pressure 114/66 137/72 Pulse Oximetry 96 100 Intake & Output 02/24/18 02/25/18 02/25/18 18:59 06:59 18:59 Intake Total 1200 / 1200 350 / 350 Balance 1200 / 1200 350 / 350 Weight 70.7 kg 68.7 kg Intake: IV 350 / 350 Azithromycin Inj 500 MG In NS 250 / 250 Inj 250 ML @ 250 mls/hr IV.SIG Q24H EDY Rx#:[id number] Rocephin Inj 2,000 MG In NS Inj 100 / 100 100 ML @ 200 mls/hr IV.SIG Q24H EDY Rx#:[id number] Oral 1200 / 1200 Other: # Voids 4 3 Date of Last Bowel Movement 02/23/18 02/23/18 02/23/18 Result Diagrams: 02/23/18 07:33 02/23/18 07:33 Laboratory Results: Laboratory Results - last 24 hr 02/25/18 04:30 ESR 54 H Culture Results: Microbiology 02/21/18 14:20 Aerobic Blood Culture - Preliminary Blood - Peripheral No growth in 4 days Anaerobic Blood Culture - Preliminary No growth in 4 days 02/21/18 14:20 Aerobic Blood Culture - Preliminary Blood - Peripheral No growth in 4 days Anaerobic Blood Culture - Preliminary No growth in 4 days 02/18/18 17:02 Aerobic Blood Culture - Final Blood - Peripheral No growth in 5 days Anaerobic Blood Culture - Final No growth in 5 days 02/18/18 12:20 Aerobic Blood Culture - Final Blood - Peripheral Staphylococcus aureus Anaerobic Blood Culture - Final No growth in 5 days Imaging Studies: Impressions Chest CT 02/24/18 00:00 CONCLUSION: 1. The mass in the anterior aspect of the left chest is significantly reduced in size compared to patient's exam of 02/22/2018 as such, no aspiration or biopsy was performed. Medications: Active Medications Generic Name Dose Route Start Last Admin Trade Name Freq PRN Reason Stop Dose Admin Acetaminophen 650 mg 02/17/18 04:27 02/17/18 19:59 Tylenol PO 650 mg Q4H PRN Administration Temp > 100.4 Hydrocodone Bitart/Acetaminophen 1 tab 02/18/18 10:55 02/25/18 13:22 [place] 10/325 PO 1 tab Q6H PRN Administration PAIN SCALE 6 TO 10 Hydrocodone Bitart/Acetaminophen 1 tab 02/18/18 10:55 02/24/18 14:39 [place] 5/325 PO 1 tab Q6H PRN Administration PAIN SCALE 1 TO 5 Heparin Sodium (Porcine) 5,000 units 02/17/18 05:00 02/25/18 13:18 Heparin Inj SQ 5,000 units Q8H EDY Administration Sodium Chloride 1,000 mls @ 0 mls/hr 02/16/18 22:00 02/16/18 23:32 Ns Inj IV.SIG Infused BOLUS EDY Infusion Wide Open Azithromycin 500 mg/ Sodium 250 mls @ 250 mls/hr 02/18/18 04:00 02/25/18 06: 05 Chloride IV.SIG Infused Q24H EDY Infusion Ceftriaxone Sodium 2,000 mg/ 100 mls @ 200 mls/hr 02/18/18 04:00 02/25/18 04: 52 Sodium Chloride IV.SIG Infused Q24H EDY Infusion Morphine Sulfate 4 mg 02/17/18 04:26 02/18/18 09:34 Morphine Inj IV.PUSH 4 mg Q4H PRN Administration BREAKTHROUGH PAIN Ondansetron HCl 4 mg 02/17/18 04:27 02/20/18 02:09 Zofran Inj IV.PUSH 4 mg Q6H PRN Administration NAUSEA OR VOMITING Senna/Docusate Sodium 1 tab 02/17/18 09:00 02/25/18 08:30 Judy-Colace PO Not Given BID EDY Objective Remarks: GENERAL: Well-nourished, well-developed male patient, in no acute distress. SKIN: Warm and dry. HEAD: Normocephalic. EYES: No scleral icterus. No injection or drainage. NECK: Supple, trachea midline. CARDIOVASCULAR: +S1/S2 without murmurs. RESPIRATORY: Breath sounds clear, equal bilaterally. Non-labored at rest. GASTROINTESTINAL: Abdomen soft, non-tender, nondistended. EXTREMITIES: No cyanosis, or edema. MUSCULOSKELETAL: Adequate muscle tone. NEUROLOGICAL: No obvious focal deficit. Awake, alert, and oriented x3. PSYCHIATRIC: Appropriate mood and affect; insight and judgment normal. Assessment/Plan (1) Pneumonia Code(s): J18.9 - Pneumonia, unspecified organism Status: Acute (2) Lung mass Code(s): R91.8 - Other nonspecific abnormal finding of lung field Status: Acute - Plan 1. Left lung mass. Repeat CT chest showed low-density mass along the anterior left upper lobe which appears to have increased in size. Biopsy not performed as radiologist discovered at least a 50% decrease in size from previous scan, spoke with Dr. Gamboa who felt this was likely infection with a great response to the antibiotics. Recommended repeat CT scan for follow-up. 2. Pneumonia. Afebrile. Blood culture grew Staphylococcus aureus in multiple bottles, repeat cultures no growth times 4 days. No vegetations seen on ALISHA. Continue antibiotics per infectious disease. 3. We will sign off from an oncology standpoint, [facility] 3-6 weeks. - Attending Statement The exam, history, and the medical decision-making described in the above note were completed with the assistance of the mid-level provider. I reviewed and agree with the findings presented. I attest that I had a [id number] encounter with the patient on the same day, and personally performed and documented my assessment and findings in the medical record.Late entry. I saw patient in the morning and his sister at the bedside. His left shoulder/chest pain has improved. Discussed CT findings with the. The mass was smaller compare to 2 days prior suggestive of inflammatory process. I told him to followup [facility] and repaet CT in about 4 weeks and follow until resolution of the mass. He voices understanding.
--- NOTE | 2018-02-25 14:53 | P.DS ---
Date of admission: 02/17/18 03:28 Primary care physician: [facility] Brief History from admission: 52-year-old male with a past medical history significant for previous neck surgery and rotator cuff repair presents to the emergency department complaining of left shoulder, left neck and left anterior chest wall pain that began on Thursday afternoon. The patient reports the pain is significantly worse with inspiration. He denies any cough. Endorses associated chills. No shortness of breath. No abdominal pain. No nausea/vomiting/diarrhea. No recent history of weight loss. DS: Diagnosis - Discharge Diagnosis (1) Pneumonia Status: Acute (2) Bacteremia Status: Acute DS: Summary Hospital Course: While in hospital, patient was treated for: Sepsis/staph aureus bacteremia/pneumonia -CT scan does indicate posterior lower lung griffin with increased density related to consolidation or atelectasis -Patient continued on antibiotics for community acquired pneumonia with Rocephin. Will likely need Rocephin IV times couple more weeks -Duo nebs as needed -ALISHA performed February 19, 2018, report negative for endocarditis -Repeat BC +1#4 on 02/18; Repeat Blood culture on 02/21-NTD Left upper lung mass, concerning for neoplasm, however this appeared to be more likely abscess -Oncology was consulted -CT chest February 22, 2018 report noted with finding of 1. Low-density left upper lobe pleural-based mass again identified which is nonspecific. 2. 7 to 8 mm noncalcified pulmonary nodule in the right lung apex. CT-guided biopsy planned for February 24, 2018 was cancer because the mass has decreased in size and is felt to be due to infection. Radiology notes involvement of the sternoclavicular joint. White blood cell count has improved. Repeated blood culture is negative. -We will continue Rocephin per ID for couple weeks. PICC line was inserted prior to discharge -Pain management was provided DVT prevention -Subcutaneous heparin - Time Spent with Patient Total time spent providing and/or coordinating discharge services: Greater than 30 minutes - Quality: VTE Deep Vein Thrombosis/Pulmonary Embolism Present on Admission: No Exam Vital signs: Vital Signs 02/24/18 16:00 02/24/18 20:00 02/25/18 00:00 Temperature 97.4 F L 98.5 F 98.3 F Pulse Rate 64 76 67 Respiratory Rate 18 18 Blood Pressure 140/75 153/70 H 115/63 Pulse Oximetry 98 98 95 02/25/18 04:00 02/25/18 08:00 Temperature 98.2 F 98.7 F Pulse Rate 63 74 Respiratory Rate 18 22 Blood Pressure 114/66 137/72 Pulse Oximetry 96 100 Intake & Output 02/24/18 02/25/18 02/25/18 18:59 06:59 18:59 Intake Total 1200 / 1200 350 / 350 Balance 1200 / 1200 350 / 350 Weight 70.7 kg 68.7 kg Intake: IV 350 / 350 Azithromycin Inj 500 MG In NS 250 / 250 Inj 250 ML @ 250 mls/hr IV.SIG Q24H EDY Rx#:[id number] Rocephin Inj 2,000 MG In NS Inj 100 / 100 100 ML @ 200 mls/hr IV.SIG Q24H EDY Rx#:[id number] Oral 1200 / 1200 Other: # Voids 4 3 Date of Last Bowel Movement 02/23/18 02/23/18 02/23/18 Narrative: GENERAL: Well-developed well-nourished. In no acute distress. NECK: No carotid bruits. No JVD. CARDIOVASCULAR: Regular rate and rhythm. No murmur appreciated. RESPIRATORY: No accessory muscle use. Clear to auscultation. Breath sounds equal bilaterally. MUSCULOSKELETAL: No clubbing or cyanosis. No edema. NEUROLOGICAL: Awake and alert. Normal speech. Results Procedures completed during hospitalization: None Labs on day of discharge: Labs from last 24 hours 02/25/18 04:30 ESR 54 H Preliminary micro results at discharge 02/21/18 14:20 Aerobic Blood Culture - Preliminary Blood - Peripheral No growth in 4 days Anaerobic Blood Culture - Preliminary No growth in 4 days 02/21/18 14:20 Aerobic Blood Culture - Preliminary Blood - Peripheral No growth in 4 days Anaerobic Blood Culture - Preliminary No growth in 4 days - Impressions ITS Impressions Chest X-Ray 02/16/18 21:30 CONCLUSION: No acute cardiopulmonary process. Shoulder X-Ray 02/16/18 23:11 CONCLUSION: No acute abnormality is seen. Cervical Spine CT 02/17/18 01:02 CONCLUSION: 1. Status post corpectomy at C6 with strut seen extending from the inferior aspect of C5 to superior aspect of C7. 2. Anterior cervical fusion plate extending from C4 through C7. 3. Uncovertebral hypertrophy and neural foraminal narrowing at the C4-C5 through C6-C7 levels as described above. Most prominently affected level is the C5-C6 level. Chest CTA 02/17/18 01:02 CONCLUSION: 1. No pulmonary embolus. 2. 2.9 cm subpleural mass seen at the anterior superior left upper lobe. Neoplasm cannot be excluded. This area could be further evaluated noninvasively with PET FDG study. 3. Diffuse emphysematous change. 4. Suspected atelectasis at the posterior lung lower lungs bilaterally. Abdomen/Pelvis CT 02/18/18 04:43 CONCLUSION: 1. No CT evidence for abdominal/pelvic mass or metastatic disease. 2. Ancillary findings, as above. Chest CT 02/24/18 00:00 CONCLUSION: 1. The mass in the anterior aspect of the left chest is significantly reduced in size compared to patient's exam of 02/22/2018 as such, no aspiration or biopsy was performed. Discharge Plan - Discharge Disposition Patient Disposition: Disch /Home Health Service - Discharge Condition Condition: Stable - Discharge Order Discharge Orders: Discharge Order (Routine); Ordered 02/25/18 Ordered By: Mario Kan Oncology Clear for Discharge (Routine); Ordered 02/25/18 Ordered By: Ronda Almanzar - Physicians Team Primary Care Provider: [facility] Attending Provider: Mario Kan Other Providers: William Paz MD ; Manuel Figueroa MD ; Romaine Aly MD
== END 2018-02-25 16:32 | disposition home health service (06) ==
LOC: NEPC 20:03 → NEDA 02-17 03:28 → PH3 02-17 10:47 → N05 02-18 20:57
PROVIDERS: ADMIT Hospitalist; ATTEND Hospitalist